=== PATIENT | female | born 1990 | race Caucasian/White ===

== ENCOUNTER 2018-05-30 16:30 | Emergency (ER) | payer MEDICAID, SELFPAY ==
[2018-05-30 16:31] VITALS: BP 116/64; PULSE 92; RESP 16; TEMP 36.3; O2SAT 97; BMI 20.9
--- NOTE | 2018-05-30 16:41 | ED.VISSUMM ---
- ER Visit Summary Date of Service: 05/30/18 Chief Complaint: Worsening dental pain History of Present Illness: The patient is a 27 F who presents with left lower tooth pain. Pain is worse with hot or cold liquids. She denies fever, chills night sweats. She denies difficulty opening or closing her mouth completely. She denies change in voice, difficulty swallowing or breathing. There is no history rheumatic fever, murmur, SBE, IV drug use or being immune suppressed. She reports allergy to penicillin. Physical Examination: Vital signs noted. She is afebrile. The left lower second molar has a large defect. There is soft tissue swelling buccal side of the tooth. There is no fluctuance. There is shotty submandibular lymphadenopathy with no anterior cervical lymphadenopathy. Trach is midline. There is no stridor. There is no dysphonia or dysphasia. Heart is regular without murmur, gallop or rub. S1 and S2 are normal. Lungs are clear to auscultation with good movement of air bilaterally. There is no evidence of facial cellulitis. Test Results: None Emergency Department Course and Treatment: Patient received first dose of Naprosyn, Monon and clindamycin in the department and was given a prescription for all 3. Treatment Plan: Oral analgesia and antibiotics and follow-up with dentist at [facility] Disposition: Discharged home in stable condition with significant other Impression: Dental abscess left lower molar This note was generated with [employer] dictation software. It may contain incorrect words, spelling, and punctuation that were not noted in review of the chart prior to signing ED Disposition - Plan for ED Patient: Disposition: Home or Assisted Living Chief Complaint: Dental Instructions: Dental Abscess Prescriptions: Hydrocodone Bitart/Apap 5-325 [Monon 5MG-325MG] 1 tablet PO Q6H PRN PRN 3 Days #10 tablet PRN Reason: Pain Naproxen [Naprosyn] 500 mg PO BID #14 tablet Clindamycin HCl [Cleocin] 300 mg PO Q6H #28 capsule Referrals: Arabella Marin MD [Primary Care Provider] - Additional Instructions: Your prescription was electronically sent to [facility] pharmacy located on [facility].
[2018-05-30] MEDS: HYDROcodone Bitartrate/Apap 5/325 Tablet PO (16:42)
[2018-05-30] MEDS: Naproxen 250 MG Tablet 500 MG PO (16:42)
[2018-05-30] MEDS: Clindamycin HCl 150 MG Capsule 300 MG PO (16:42)
--- NOTE | 2018-05-30 16:46 | ED.DCSUM_ITS ---
- ER Visit Summary Date of Service: 05/30/18 Chief Complaint: Worsening dental pain History of Present Illness: The patient is a 27 F who presents with left lower tooth pain. Pain is worse with hot or cold liquids. She denies fever, chills night sweats. She denies difficulty opening or closing her mouth completely. She denies change in voice, difficulty swallowing or breathing. There is no history rheumatic fever, murmur, SBE, IV drug use or being immune suppressed. She reports allergy to penicillin. Physical Examination: Vital signs noted. She is afebrile. The left lower second molar has a large defect. There is soft tissue swelling buccal side of the tooth. There is no fluctuance. There is shotty submandibular lymphadenopathy with no anterior cervical lymphadenopathy. Trach is midline. There is no stridor. There is no dysphonia or dysphasia. Heart is regular without murmur, gallop or rub. S1 and S2 are normal. Lungs are clear to auscultation with good movement of air bilaterally. There is no evidence of facial cellulitis. Test Results: None Emergency Department Course and Treatment: Patient received first dose of Naprosyn, Monroe and clindamycin in the department and was given a prescription for all 3. Treatment Plan: Oral analgesia and antibiotics and follow-up with dentist at [facility] Disposition: Discharged home in stable condition with significant other Impression: Dental abscess left lower molar This note was generated with [employer] dictation software. It may contain incorrect words, spelling, and punctuation that were not noted in review of the chart prior to signing ED Disposition - Plan for ED Patient: Disposition: Home or Assisted Living Chief Complaint: Dental Instructions: Dental Abscess Prescriptions: Hydrocodone Bitart/Apap 5-325 [Monroe 5MG-325MG] 1 tablet PO Q6H PRN PRN 3 Days #10 tablet PRN Reason: Pain Naproxen [Naprosyn] 500 mg PO BID #14 tablet Clindamycin HCl [Cleocin] 300 mg PO Q6H #28 capsule Referrals: Arabella Marin MD [Primary Care Provider] - Additional Instructions: Your prescription was electronically sent to [facility] pharmacy located on [facility].
== END 2018-05-30 16:51 | disposition home or self-care (01) ==
PROVIDERS: Emergency Provider Emergency Medicine; Family Provider Internal Medicine; PCP Internal Medicine
DX: K04.7 Periapical abscess without sinus (principal); K02.9 Dental caries, unspecified; Z72.0 Tobacco use
CPT/HCPCS: 99283

== ENCOUNTER 2018-08-17 20:12 | Emergency (ER) | payer MEDICAID, SELFPAY ==
[2018-08-17 20:12] VITALS: BP 103/60; PULSE 70; RESP 16; TEMP 36.2; O2SAT 100; BMI 21.7
--- NOTE | 2018-08-17 20:56 | RAD_ITS ---
STUDY: X-RAY - UNILATERAL RIBS ( RIGHT ) WITH CHEST REASON FOR EXAM: Female, 27 years old. Rib pain. TECHNIQUE - RIBS: 4 view(s) of the ribs. TECHNIQUE - CHEST: PA COMPARISON: March 19, 2017 FINDINGS - RIBS: Normal visualized ribs without a demonstrated fracture. FINDINGS - CHEST: The lungs are clear and expanded. There is no demonstrated pleural abnormality. Normal size heart. Normal mediastinum and mariel. Normal visualized pulmonary arteries. Normal visualized aortic arch and descending thoracic aorta. Normal visualized thoracic spine. Normal visualized ribs, clavicles, and shoulders. There is no demonstrated abnormality of the visualized soft tissue structures of the upper abdomen. RAD/Ribs Uni Min 3V w/PA Chest IMPRESSION: RIBS: Normal x-ray examination of the ribs. CHEST: Normal x-ray examination of the chest. Electronically Signed: Shyann Green MD at 22:07 EDT Tel , Service support ,
--- NOTE | 2018-08-17 21:02 | ED.DCSUM_ITS ---
- ER Visit Summary Date of Service: 08/17/18 Chief Complaint: Right side pain History of Present Illness: The patient is a 27 F presenting with right side pain. Patient states this started Friday. She has pain right lower ribs and right upper quadrant. She has taken ibuprofen at home with no relief. She denies injury. Denies nausea, vomiting, diarrhea. She has a mild cough. Denies shortness of breath. Denies fever. She also complains of left lower tooth pain and is awaiting her dental appointment. Denies other complaints. Physical Examination: Vitals are stable. Patient is afebrile. Alert no acute distress. HEENT exam left lower molar decay with no surrounding fluctuance.. Neck is supple. Lungs are clear and equal bilaterally. Heart is regular rate and rhythm. Abdomen is soft right upper quadrant tenderness with no rebound or guarding Extremities are unremarkable. Skin is warm and dry. No focal neurologic deficit. Remainder of exam is unremarkable. Emergency Department Course and Treatment: CBC, chemistries are unremarkable. Liver lipase are normal. D-dimer negative. HCG negative. Right rib series shows no acute process. On reevaluation, patient is resting comfortably. She is given prescriptions for Bentyl and clindamycin. She is advised to follow-up with her primary care physician and her dentist. She is advised to return to ED for worsening complaints. Disposition: Discharge home Impression: Abdominal pain, odontalgia This note was generated with [employer] dictation software. It may contain incorrect words, spelling, and punctuation that were not noted in review of the chart prior to signing ED Disposition - Plan for ED Patient: Instructions: ED Abdominal Pain Unkn Cause, ED Tooth Pain Prescriptions: Dicyclomine HCl [Bentyl] 20 mg PO TIDAC #20 capsule Clindamycin [Cleocin] 300 mg PO 4X/DAY #80 capsule Referrals: Arabella Marin MD [Primary Care Provider] -
[2018-08-17 21:51] LABS: Absolute Lymphocyte Count 2.29 X10^3/ul (0.83-4.51); Absolute Neutrophil Count 3.7 X10^3/uL (2.0-7.7); Basophil# 0.04 X10^3/uL; Basophil% 0.6 % (0-1); Eosinophil# 0.21 X10^3/uL; Eosinophils% 2.9 % (0-5); Hemoglobin 14.3 g/dl (12.0-15.0); Lymphocyte # 2.29 X10^3/ul (4.0); Mean Corp Hgb Conc 33.3 g/gl (32-36); Mean Corpuscular Hgb 31.1 pg (27.0-32.0); Mean Corpuscular Volume 93.5 fL (81-99); Mean Platelet Vol. 10.2 fl (6.2-12.0); Monocyte% 12.6 % (0-10); Neutrophil % 51.8 % (47-70); Platelet Count 253 K/mm3 (150-450); RBC Distribution Width CV 13.8 % (11.6-14.6); RBC Distribution Width SD 46.8 fl (35.1-43.9); White Blood Count 7.2 K/mm3 (4.4-11.0)
[2018-08-17 22:00] LABS: AST(SGOT) 12 U/L (15-37); Alanine Aminotransfer ALT/SGPT 16 U/L (13-56); Albumin, Serum 3.8 g/dL (3.2-5.0); Alkaline Phosphatase 68 U/L (45-117); Anion Gap 3 (5-15); BUN 16 mg/dL (7-18); BUN/Creat Ratio 19.4 RATIO (10-20); Bilirubin, Direct 0.16 mg/dL (0.00-0.30); Calcium,Total 8.7 mg/dL (8.5-10.1); Chloride 106 mmol/L (98-107); Creatinine, Serum 0.83 mg/dL (0.55-1.02); EST Glomerular Filtration Rate 88 mL/min (>60); Est Glom Filt Rate - Afr Amer 107 mL/min (>60); Estimated Creatinine Clearance 77.51 ml/min; Globulin 3.1 g/dL (2.2-4.2); Glucose 94 mg/dL (74-106); Lipase 115 U/L (73-393); Potassium 3.9 mmol/L (3.5-5.1); Protein, Total 6.9 g/dL (6.4-8.2); Sodium Level 138 mmol/L (136-145)
[2018-08-17 22:01] LABS: POSITIVE COUNT NO; POSITIVE DIFFERENTIAL NO; POSITIVE MORPHOLOGY NO
[2018-08-17 22:05] LABS: D-Dimer Quantitative (DVT/PE) < 0.27 FEU/ug/m (0.27-0.49)
[2018-08-17 22:06] LABS: Pregnancy, Serum, hCG Quali. NEGATIVE Negative (0-9 Nonpreg)
--- NOTE | 2018-08-17 22:57 | ED.DEP ---
ED Disposition - Plan for ED Patient: Instructions: ED Abdominal Pain Unkn Cause, ED Tooth Pain Prescriptions: Dicyclomine HCl [Bentyl] 20 mg PO TIDAC #20 capsule Clindamycin [Cleocin] 300 mg PO 4X/DAY #80 capsule Referrals: Arabella Marin MD [Primary Care Provider] -
[2018-08-17 23:18] VITALS: BP 105/81; PULSE 76; RESP 14; O2SAT 99
== END 2018-08-17 23:19 | disposition home or self-care (01) ==
PROVIDERS: Emergency Provider Emergency Medicine; Family Provider Internal Medicine; PCP Internal Medicine
DX: R10.11 Right upper quadrant pain (principal); K08.89 Other specified disorders of teeth and supporting structures; K02.9 Dental caries, unspecified; R05 Cough; Z72.0 Tobacco use
CPT/HCPCS: 71101; 80048; 80076; 83690; 84703; 85025; 85379; 99283; A4216

== ENCOUNTER 2018-10-30 20:46 | Emergency (ER) | payer MEDICAID, SELFPAY ==
[2018-10-30 20:47] VITALS: BP 112/66; PULSE 116; RESP 18; TEMP 39.6; O2SAT 97; BMI 20.5
[2018-10-30 20:56] VITALS: RESP 16
[2018-10-30] MEDS: Ceftriaxone 1 GM/50 ML BAG IV (21:13)
[2018-10-30] MEDS: Acetaminophen 325 MG Tablet 650 MG PO (21:13)
--- NOTE | 2018-10-30 21:20 | ED.DCSUM_ITS ---
History of Present Illness Chief Complaint: Flank Pain Detail of Chief Complaint: Fever, chills and right flank pain Informant: Patient Onset: Today - Onset this afternoon Context: Sudden Onset Timing: Continuous Quality: Pain Location: Right flank Current Severity: Moderate Maximum Severity: Severe Worsened by: Movement and palpation Relieved by: Nothing Associated Symptoms: Fever, nausea Narrative: Patient is a 27-year-old female who presents with right flank pain that started abruptly associated with fever and chills. She denies dysuria, frequency but does report dark-colored urine. She denies abnormal vaginal bleeding. She denies symptoms of . She denies respiratory symptoms. There is no history of trauma. - Past Medical History (1) Polyhydramnios affecting in third trimester Status: Acute Past Medical History - Allergies and Home Meds Allergies/Adverse Reactions: Allergies Penicillins Allergy (Verified 10/30/18 20:56) Hives Sulfa (Sulfonamide Antibiotics) Allergy (Verified 10/30/18 20:56) Hives Primary Care Physician: Arabella Marin MD [Primary Care Provider] - Prior records reviewed: No Surgical History: no surgical history Lives: Spouse/ Significant Other, With Family Smoking Status: Current every day smoker Alcohol: Rare Review of Systems General: Reports: Chills, Fever, Subjective, Sweats Eyes: Denies: Visual changes - bilaterally, Blurred Vision - bilaterally, Diplopia ENT: Denies: Rhinorrhea, Sore throat Cardiovascular: Denies: Chest pain, Palpitations Respiratory: Denies: Dyspnea, Cough, Dyspnea on exertion Gastrointestinal: Reports: Nausea. Denies: Abdominal pain, Vomiting, Diarrhea, Constipation, Melena, Hematochezia, -, - Genitourinary: Reports: Hematuria. Denies: Dysuria, Frequency Musculoskeletal: Reports: Back pain - Right flank. Denies: Myalgias, Arthralgias, Neck pain, Swelling, Extremity Pain, -, - Skin: Denies: Rash, Wounds Neurological: Reports: Headache. Denies: Weakness, Parasthesia, Numbness Endocrine: Denies: Polyuria, Polydipsia, Heat intolerance Hematologic: Denies: Easy bruising, Easy bleeding Physical Exam Vital Signs/Narrative: Vital Signs Temp Pulse Resp BP Pulse Ox 10/30/18 20:56 16 10/30/18 20:47 103.2 F H 116 H 18 112/66 97 Inital Vital Signs reviewed: Yes General: Well nourished, Well developed, No Acute Distress - She does appear ill but not toxic Head: Normocephalic, Atraumatic Eyes: Perrl, EOMI. Negative for: Pale conjunctiva, Scleral icterus ENT: Moist mucous membranes, No rhinorrhea Neck: Supple, Nontender Cardiovascular: Regular rhythm, No murmurs, Normal S1, Normal S2, Tachycardia Respiratory: No distress, CTA bilaterally, Chest nontender Abdomen: Soft, Nontender, Nondistended, Normal bowel sounds Back: Nontender, Normal Inspection, CVA tenderness - Right side. Negative for: Spinal tenderness Extremities: Nontender, No edema Skin: Normal color, No rash Neurological: Alert, Oriented x3, Cranial nerves II-XII grossly intact, Normal Strength, Normal Sensation Psychological: Normal affect, Normal Mood Diagnostic/Tx/Re-eval Laboratory Results 10/30/18 10/30/18 10/30/18 21:07 21:07 21:07 WBC 13.1 H RBC 4.58 Hgb 14.0 Hct 41.3 MCV 90.2 MCH 30.6 MCHC 33.9 RDW 12.8 RDW Differential 41.8 Plt Count 251 MPV 9.6 Immature Gran % (Auto) 0.200 Neut % (Auto) 75.3 H Lymph % (Auto) 14.7 L [place] % (Auto) 9.6 Eos % (Auto) 0.1 Baso % (Auto) 0.1 Absolute Neuts (auto) 9.9 H Absolute Lymphs (auto) 1.92 Total Counted Not Reportable Sodium 136 Potassium 3.6 Chloride 103 Carbon Dioxide 25.0 Anion Gap 8 BUN 11 Creatinine 0.92 Estim Creat Clear Calc 69.92 Est GFR (MDRD) Af Amer 95 Est GFR (MDRD) Non-Af 78 BUN/Creatinine Ratio 12.0 Glucose 92 Calcium 8.9 Serum , Qual NEGATIVE I was informed patient requested to leave. She was informed risk benefits of leaving. She was informed the importance of a urinalysis and to send culture. She is willing to stay. Time of this addendum 4855 - Medical Decision Making Story and physical exam are consistent with acute pyelonephritis. Will obtain UA. This may represent obstructing ureteral stone with infection. Doubt respiratory or GI etiology. CBC, BMP and test were obtained. BMP was obtained to assess renal function. Patient received Tylenol for headache. She is requesting ibuprofen for her fever. Patient did give urine specimen. Will discharge with prescription for ciprofloxacin. She reports allergy to penicillin and sulfa. Patient did pass p.o. challenge. 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
[2018-10-30 21:21] LABS: Absolute Lymphocyte Count 1.92 X10^3/ul (0.83-4.51); Absolute Neutrophil Count 9.9 X10^3/uL (2.0-7.7); Basophil# 0.01 X10^3/uL; Basophil% 0.1 % (0-1); Eosinophil# 0.01 X10^3/uL; Eosinophils% 0.1 % (0-5); Hematocrit 41.3 % (37-47); Lymphocyte # 1.92 X10^3/ul (4.0); Lymphocyte % 14.7 % (19-41); Mean Corp Hgb Conc 33.9 g/gl (32-36); Mean Corpuscular Hgb 30.6 pg (27.0-32.0); Mean Corpuscular Volume 90.2 fL (81-99); Mean Platelet Vol. 9.6 fl (6.2-12.0); Monocyte# 1.26 X10^3/uL; Monocyte% 9.6 % (0-10); Neutrophil # 9.85 X10^3/uL (2.7-7.7); Neutrophil % 75.3 % (47-70); Platelet Count 251 K/mm3 (150-450); RBC Distribution Width CV 12.8 % (11.6-14.6); RBC Distribution Width SD 41.8 fl (35.1-43.9); Red Blood Count 4.58 M/mm3 (4.2-5.4); White Blood Count 13.1 K/mm3 (4.4-11.0)
[2018-10-30 21:22] LABS: POSITIVE COUNT NO; POSITIVE DIFFERENTIAL NO; POSITIVE MORPHOLOGY NO
[2018-10-30 21:24] LABS: Internal QC Validated? YES +Cl - CLEAR BKGD
[2018-10-30 21:25] LABS: Pregnancy, Serum, hCG Quali. NEGATIVE Negative
[2018-10-30 21:29] LABS: Anion Gap 8 (5-15); BUN 11 mg/dL (7-18); Calcium,Total 8.9 mg/dL (8.5-10.1); Chloride 103 mmol/L (98-107); Creatinine, Serum 0.92 mg/dL (0.55-1.02); EST Glomerular Filtration Rate 78 mL/min (>60); Est Glom Filt Rate - Afr Amer 95 mL/min (>60); Estimated Creatinine Clearance 69.92 ml/min; Glucose 92 mg/dL (74-106); Potassium 3.6 mmol/L (3.5-5.1); Sodium Level 136 mmol/L (136-145)
[2018-10-30 22:03] VITALS: TEMP 38.7
[2018-10-30 22:27] LABS: Mucous, Urine 0 SEEN /hpf (<or=2+); Red Blood Cells-Urine 0 SEEN /hpf (0-5)
--- NOTE | 2018-10-30 22:28 | ED.RN ---
1000 ML SALINE BOLUS GIVEN AT 2224, UNABLE TO DOCUMENT ON JUL.
[2018-10-30 22:29] LABS: Color, Urine Yellow (Yellow); Glucose, Dipstick Normal (Normal); Ketone-Dipstick 15 mg/dl (Negative); Leukocyte Esterase-Dipstick 100 /ul (Negative); Nitrite-Dipstick Positive (Negative); Occult Blood-Urine 150 /ul (Negative); Protein-Dipstick 30 mg/dl (Negative); Urine Bilirubin Dipstick Negative (Negative); Urine Clarity Sl. Cloudy (Clear); Urine Urobilinogen Normal (Normal)
[2018-10-30] MEDS: Ibuprofen 600 MG Tablet PO (22:33)
[2018-10-30 22:36] VITALS: BP 100/66; PULSE 95; RESP 16; TEMP 36.1
[2018-10-30 22:39] LABS: Bacteria RARE /hpf (None Seen); Squamous Epithelial Cells - UA 0-5 SEEN /hpf (5-10); White Blood Cells 25-50 SEEN /hpf (0-5)
== END 2018-10-30 23:05 | disposition home or self-care (01) ==
PROVIDERS: Emergency Provider Emergency Medicine; Family Provider Internal Medicine; PCP Internal Medicine
DX: A41.9 Sepsis, unspecified organism (principal); N10 Acute pyelonephritis; Z88.0 Allergy status to penicillin; Z88.2 Allergy status to sulfonamides; F17.200 Nicotine dependence, unspecified, uncomplicated
CPT/HCPCS: 80048; 81001; 84703; 85025; 87077; 87086; 87088; 87186; 96365; 96366; 99284; J7030; J7050; A4216

== ENCOUNTER 2019-05-02 11:12 | Emergency (ER) | payer SELFPAY ==
[2019-05-02 11:13] VITALS: BP 104/56; PULSE 92; RESP 17; TEMP 36.7; O2SAT 99; BMI 21.8
--- NOTE | 2019-05-02 11:31 | ED.DCSUM_ITS ---
History of Present Illness Chief Complaint: Cold Sx Informant: Patient Onset: Days - 3 days Context: Gradual Onset Current Severity: Moderate Maximum Severity: Moderate Narrative: Patient presents with URI symptoms for the past 3 days. She has cough with head and chest congestion. She reports having a fever yesterday but did not measure it. She is coughing up green sputum and having wheezing. She is a smoker and reports a history of asthma. She is also 12 weeks . She has had no abdominal cramping or vaginal bleeding. - Past Medical History (1) Asthma Status: Chronic Past Medical History - Allergies and Home Meds Allergies/Adverse Reactions: Allergies Penicillins Allergy (Verified 05/02/19 11:13) Hives Sulfa (Sulfonamide Antibiotics) Allergy (Verified 05/02/19 11:13) Hives Primary Care Physician: Arabella Marin MD [Primary Care Provider] - Doctors: Dr. Ansari Prior records reviewed: Yes Surgical History: no surgical history Lives: With Family Smoking Status: Current every day smoker Review of Systems General: Reports: Fever, Subjective Eyes: Denies: Visual changes - bilaterally ENT: Reports: Sore throat, - - Head congestion Cardiovascular: Denies: Chest pain Respiratory: Reports: Cough, Sputum, - - Wheezing. Denies: Dyspnea Gastrointestinal: Denies: Vomiting, Diarrhea Genitourinary: Denies: Dysuria Musculoskeletal: Denies: Back pain, Extremity Pain Skin: Denies: Rash Neurological: Denies: Headache Hematologic: Denies: Easy bruising Allergy: Denies: Uticaria Physical Exam Vital Signs/Narrative: Vital Signs Temp Pulse Resp BP Pulse Ox 05/02/19 11:13 98.1 F 92 17 104/56 L 99 Inital Vital Signs reviewed: Yes General: Well nourished, Well developed Head: Normocephalic ENT: Moist mucous membranes, TM's clear, - - Posterior pharyngeal drainage. Uvula midline and normal in size. Neck: Supple Cardiovascular: Regular rate, Regular rhythm Respiratory: No distress, - - Slight decreased air movement with scant expi ratory wheezes. Abdomen: Soft, Nontender Extremities: Nontender Skin: Normal color Neurological: Alert, Oriented x3 Psychological: Normal affect Diagnostic/Tx/Re-eval - Medical Decision Making Patient has reported fever with green sputum production, wheezing, and history of asthma. She will be covered with a course of Zithromax, first dose given here. She will also be given albuterol inhaler. ED Disposition - Plan for ED Patient: Disposition: Home or Assisted Living Diagnosis: Bronchitis Instructions: BRONCHITIS, Antiobiotic Treatment (Adult) Prescriptions: Azithromycin [Zithromax] 250 mg PO DAILY #4 tablet Referrals: Arabella Marin MD [Primary Care Provider] - 1 Week if not improving
[2019-05-02] MEDS: Azithromycin 250 MG Tablet 500 MG PO (11:35)
[2019-05-02 11:54] VITALS: RESP 18
== END 2019-05-02 11:50 | disposition home or self-care (01) ==
PROVIDERS: Emergency Provider Emergency Medicine; Family Provider Internal Medicine; PCP Internal Medicine
DX: O99.511 Diseases of the respiratory system complicating pregnancy, first trimester (principal); J45.909 Unspecified asthma, uncomplicated; O99.331 Smoking (tobacco) complicating pregnancy, first trimester; Z3A.12 12 weeks gestation of pregnancy; Z88.0 Allergy status to penicillin; Z88.2 Allergy status to sulfonamides
CPT/HCPCS: 99283

== ENCOUNTER → 2019-10-29 | Outpatient (CLI) | payer MEDICAID, SELFPAY ==
--- OUTSIDE RECORDS SUMMARY | 2020-03-14 19:21 | XMS RPT_ITS | CCD ---
:1990 External Reference #:[id number] Author Organization [facility] Care Team Providers Name Role Phone OMLEY, DO Unavailable Unavailable OMLEY, DO Unavailable Unavailable OMLEY, DO Unavailable Unavailable MD RADHA Unavailable Unavailable MD RADHA Unavailable Unavailable PROVIDER Unavailable Unavailable Keenan SCHAFER Unavailable Unavailable Keenan SCHAFER Unavailable Unavailable JOJO CAMPBELL Unavailable Unavailable Heber Garcia Primary Care Provider Allergies Reported Allergen Reaction(s) Severity Date of Onset Location House dust mite 03-02-2007 - [facility] inic Other Translations: [ DUST Counce Repository MITES] Penicillins Translations: 03-04-2005 - [facility] Other [ PENICILLINS] Counce Reposi tory Sulfonamides (Antibiotic) Hives 04-10-2017 - [facility] Other Translations: [ SULFA Counce Repository (SULFONAMIDE ANTIBIOTICS)] Medications Medication Name Sig Date Prescriber Location Albuterol albuterol HFA 05-07-2018 Wendy ([facility]) [facility] ic (PROVENTIL HFA, Ace ([id number]) VENTOLIN HFA) 90 mcg/actuation inhaler Indications: Wheezing Inhale 2 Puffs as instructed every 4 hours as needed. 1 Inhaler 0 05/07/2018 Active Comment: Inhale 2 Puffs as instructed every 4 hours as needed. Ibuprofen ibuprofen (MOTRIN) 600 11-08-2019 Kinza Peralta [facility] mg tablet Take 1 tablet ([id number]) by mouth every 6 hours as needed for Pain. FOR PAIN. 30 tablet 0 11/08/2019 Active Comment: Take 1 tablet by mouth every 6 hours as needed for Pain. FOR PAIN. methylPREDNISolone methylPREDNISolone 02-10-2020 Boone Martin ([facility]) [facility] garnett (MEDROL, DEBRA,) 4 mg 03-07-2020 [facility] ( [id number]) Dose-Pack As Instructed per package 1 Package 0 02/10/2020 03/07/2020 Discontinued methylPREDNISolone (MEDROL, 02-10-2020 Veronica ([facility]) [facility] DEBRA,) 4 mg Dose-Pack As [place] ([id number]) Instructed per package 1 Package 0 02/10/2020 Active methylPREDNISolone (MEDROL, 12-17-2019 - Veronica ([facility]) [facility] DEBRA,) 4 mg Dose-Pack As 02-10-2020 [place] ([id number]) Instructed per package 1 Package 0 12/17/2019 02/10/2020 Discontinued Comment: As Instructed per package predniSONE predniSONE (DELTASONE) 03-07-2020 Emma ([facility]) [facility] 10 mg tablet Emma ([facility]) [place] ([id number]) Indications: Atopic dermatitis and related condition Take 4 tabs daily x 3 days, then 3 tabs x 3 days, 2 tabs x 3 days, then 1 tab x3 days with food. 30 tablet 0 03/07/2020 Active Comment: Take 4 tabs daily x 3 days, then 3 tabs x 3 days, 2 tabs x 3 days, then 1 tab x3 days with food. Triamcinolone triamcinolone 08-06-2019 - Emma ([facility]) [facility] [place] [facility] alexandr acetonide (KENALOG) 03-07-2021 Sosa ([id number]) 0.1 % cream Indications: Atopic dermatitis and related condition Apply 1 application to affected area three times daily. Apply sparingly to area for rash/itching. 80 g 5 03/07/2020 03/07/2021 Active Comment: Apply 1 application to affec joshua area three times daily. Apply sparingly to area for rash/itching. venlafaxine venlafaxine ER (EFFEXOR 12-17-2019 Veronica ([facility]) [facility] XR) 75 mg 24 hr capsule (441 [id number]) Take 1 capsule by mouth once daily. 30 capsule 2 12/17/2019 Active Comment: Take 1 capsule by mouth once daily. Problems Active Problems Category Problem Name Status Date Location Allergic reactions Atopic dermatitis Active 02-19-2007 - [facility] ([id number]) Anxiety disorders Mixed anxiety and Active 08-30-2016 - [facility] depressive disorder (68824) Asthma Allergic asthma Active 02-19-2007 - [facility] inic ([id number]) Other upper respiratory Allergic rhinitis Active 02-19-2007 - [facility] disease (83739) Past or Other Problems Category Problem Name Status Date Location Gastrointestinal Hemorrhage of anus Completed 07-31-2017 - [facility] hemorrhage and rectum (21015) Hemorrhoids Unspecified Completed 07-14-2017 - [facility] hemorrhoids (53070) Screening and history of H/O: depression Completed 03-11-2019 - [facility] mental health and (54193) substance abuse codes Results Result Name Value Range Unit Interpretation Flag Date Location progress on 2020-03 PROGRESS HNO ID: [id number] Normal 03-07-2020 [facility] Author: Emma (Marine Structural [employer]der) Ian Crabtree ([id number]) Service: ? Author Type: Nurse Specialist Type: Progress Notes Filed: 03/07/2020 10:11 AM Note Text: DISTANCE HEALTH VISIT This Team Access Model visit is a virtual encounter. It requ ired patient-provider interaction for the medical decision making as documented below. Russell Liz is a 29 year old female seen for follow up of eczema. Treatments: Supervisor Lead Refinery: Russell Liz is a 29 year old female who presents wit h complaint of rash for about 2 weeks. Notes she has been tanning recently. Not spreading. consistent with previous eczema flares. She notes eczema rash on buttocks, legs, back, head. Has been tanning. 2 weeks. Steroid cream not available, ran out. Prednisone does help,last doing less helpful. HISTORY REVIEWED (electronic chart updated): - medical history - medications - allergies REVIEW OF SYSTEMS: GENERAL: no recent change in weight, no fever, activity leve l is normal RESPIRATORY: no cough, no wheezing or shortness of breath SKIN: as noted in HPI PHYSICAL EXAMINATION: VIDEO EXAM: (if done, performed via video enabled technology ) GENERAL: alert and appropriate, in no distress, well-hydrate d, well nourished and happy, smiling, interactive SKIN: rash noted: presnt onlegs, back, buttocks RESPIRATORY: breathing non-labored and no grunting/flaring/r etractions CHEST: equal chest rise with normal respiratory effort NEUROLOGIC: no obvious deficit ASSESSMENT: (L20.9) Atopic dermatitis and related condition PLAN: ASSESSMENT/PLAN: 1. Atopic dermatitis and related condition - ICD9: 691.8, IC D10: L20.9 - Begin treatment with topical steriods for up to 2 weeks - Dry skin care instructions reviewed - Use mild soap like Dove, Aveeno or Cetaphil - limit shower/bath to less than 15 minutes with warm, not h ot, water - BID use of recommended emollients such as Cetaphil, Euceri n Plus, Aveeno, Aquaphor - Follow up if symptoms persist or worsen. - Referral to Dermatology for further management if needed, [facility] - TRIAMCINOLONE ACETONIDE 0.1 % TOPICAL CREAM - PREDNISONE 10 MG TABLET - CONSULT TO DERMATOLOGY 15 min spent in visit There are no Patient Instructions on file for this visit. Emma Sosa APRN.CNS obsolete on 2020-02 OBSOLETE Refill (OBGYWM) Normal 02-09-2020 Hal [facility] RUSSELL LIZ ([id number]) 1990 [facility] Date Time Provider Department ([id number]) 02/09/20 JESSICA KU (MARISELA) OBGYWM During your visit today, we recorded the following informati on about you: Karen Hawthorne RN 02/09/2020 10:41 AM Signed Patient was prescribed Medrol dose pack by at her PP visit in November for her eczema. Calling to request another RX. The eczema is all ove r her arms, shoulders, and legs. Aware t hat RM is out of the office. Would like provider ignition mechanic to review in her absence. If DOC not able to send in for her, she would like to wait for 's response tomorrow. Karen Ku APRN.CNM 02/09/2020 2:22 PM Signed Would recommend appointment with primary care for treatment or to urgent care. VAN Madrigal RN 02/09/2020 3:26 PM Signed Left voicemail to let her [facility] provider ignition mechanic would not refill. Previous note states she waants to wait for RM response. Forwarded to . Esperanza Rodriguez APRN.AYO 02/10/2020 7:23 AM Signed Please let the pt know that I did send in a medr ol pack for her, but she will need to see PCP for any further treatment for the eczema. Veronica Rodriguez APRN.AYO Hawthorne RN 02/10/2020 8:41 AM Signed Left message for patient to call office. Karen Celaya RN 02/10/2020 8:50 AM Signed Patient notified. Esperanza Celaya RN Allergies As of Date: 02/09/2020 Noted Allergy Reaction DUST MITES 03/02/2007 PENICILLINS 03/04/2005 Comments: rash, hives SULFA (SULFONAMIDE ANTIBIOTICS) 04/10/2017 4 - Hives Date Reviewed: 12/17/2019 Reviewed by: Veronica (Ayo) Jennifer - Fully Assessed Reason for Visit: Refill Request [94] Order(s):methylPREDNISolone (MEDROL, DEBRA,) 4 mg Dose-PackAs Instructed per packageDisp: 1 PackageRfl: 0 Prescriptions as of 02/09/2020 Sig: METHYLPREDNISOLONE 4 MG TABLE* As Instructed per package VENLAFAXINE ER 75 MG CAPSULE,* Take 1 capsule by mouth once * IBUPROFEN 600 MG TABLET Take 1 tablet by mouth every * TRIAMCINOLONE ACETONIDE 0.1 %* Apply 1 application to affect * ALBUTEROL SULFATE HFA 90 MCG/* Inhale 2 Puffs as instructed * Problem List As Of Date 02/09/2020 Noted Resolved OTHER ATOPIC DERMATITIS [L20.89] 02/19/2007 EXTRINSIC ASTHMA UNSPECIFIED [J45.909] 02/19/2007 ALLERGIC RHINITIS NOS [J30.9] 02/19/2007 Pain in joint, pelvic region and thigh [M25.559]09/01/2012 0 11/08/2019 History of delivery [Z98.891] 03/07/2016 02/13/2017 More... History of herpes genitalis [Z86.19] 03/07/2016 11/08/2019 More... Tobacco use in [O99.330] 03/07/2016 11/08/2019 More... History of asthma [Z87.09] 03/07/2016 11/08/2019 More... Social problem [Z65.9] 03/07/2016 11/08/2019 More... Pelvic pain in [O26.899, R10.2] 03/07/2016 017 More... Patient requested diagnostic testing [Z01.89] 03/07/2016 More... Trichomonal vaginitis during in first*03/19/2016 0 02/13/2017 More... Depression with anxiety [F41.8] 08/30/2016 Positive GBS test [B95.1] 10/10/2016 11/08/2019 Polyhydramnios in third trimester [O40.3XX0] 10/25/201601/31 38 weeks gestation of [Z3A.38] 10/25/2016 02/14/20 17 Hemorrhoids [K64.9] 07/14/2017 More... Rectal bleeding [K62.5] 07/30/2017 07/31/2017 Rectal bleeding [K62.5] 07/31/2017 Previous delivery affecting *03/11/2019 0 11/08/2019 More... History of depression [Z86.59] 03/11/2019 More... History of depression [Z87.59, Z86.5*03/11/2019 Nausea and vomiting in [O21.9] 03/11/2019 11/08/19 20 More... History of polyhydramnios [Z87.59] 03/11/2019 11/08/2019 More... Prescriptions ordered this encounter Disp Refills Start End METHYLPREDNISOLONE 4 MG TABLETS IN A* 1 Pa* 0 02/10/2020 Sig: As Instructed per package Medications Discontinued During This Encounter Prescriptions - methylPREDNISolone (MEDROL, DEBRA,) 4 mg Dose-Pack (Disconti nued) As Instructed per package Encounter Status:Closed by ESPERANZA CELYAA RN on 02/10/20 trich vaginalis ampl on 2019-12-17 T vag Amplification Negative for Trichomonas Sylvia l 12-17-2019 [facility] vaginalis by [place] ([id number]) amplification Comment: Performed By: #### TRVAMP ## ##[facility] [address] [place], [place] [phone] Trich vag Amp Source Cervix Normal 0 [facility] ([id number]) Comment: Performed By: #### TRVAMP ## ##[facility] [address] [place], [place] [phone] progress on 2019-12 PROGRESS HNO ID: [id number] Normal 12-17-2019 [facility] Author: Veronica Jacobs) Jenniferpaul Crabtree ([id number]) Service: ? Author Type: Nurse Practitioner Type: Progress Notes Filed: 12/17/2019 3:29 PM Note Text: SUBJECTIVE: 29 year old female presents for 6 week exam. Outcome: RCS. Date delivered: 11/01/19. Delivering M.D.: Gregory Wood MD Delivered in what hospital? [facility] Sex: male, Wt: 8 lbs 12 oz. Baby's Name: Dany. Feeding: Landon ttle feeding. Lochia: has ceased. Bladder: Normal. Bowels: Normal for geovanny ent, no c/o bowel problems. Last PAP: 03/24/19 If , do you have any drainage or redness at incisio n site? No Do you have a fever? No Sexual Activity: Resumed without difficulty. control P lans: tubal ligation. Additional Issues/problems/concerns: discuss change in effex or, pt feeling that her emotions all everywhere. Rosa Maria Mendoza LPN Details: None OBJECTIVE: Thyroid: normal to inspection and palpation Breast Exam: deferred. Abdomen: soft, non-tender, no masses, no hepatosplenomegaly and no lymphadenopathy Incision: Healed Perineum: perineum intact. Pelvic Exam: negative findings: external genitalia normal, n ormal Bartholin's glands, urethra, [place]'s glands, no vulvar lesio ns, no cervical lesions, normal discharge, well estrogenized, good vaginal support, vault clean with normal discharge, normal appearing perineal body and perianal region Bimanual Exam: no cervical motion tenderness/, uterus normal size, shape and consistency/ , no adnexal masses and non-tender ASSESSMENT: good candidate for tubal ligation. Use, risks , benefits and side effects discussed with lorraine gómez PLAN: Depression: Follow up in 4-6 weeks to assess resp onse to Effexor Prescription given per orders, RTC for annual exams and PRN I have reviewed and updated past medical and surgical histor y, medications and allergies. STD testing done per pt request. Veronica Rodriguez, KILN DRAWER.MANUFACTURER REPRESENTATIVE gc/chlamydia amplif on 2019-12-17 Chlamydia Amplif Negative for Chlamydia Normal 12-17-2019 [facility] trachomatis by [facility] ([id number]) amplification. Comment: Performed By: #### GCCT #### [address] [phone] GC Amplification Negative for Neisseria Normal 12-17-2019 [facility] gonorrhoeae by [facility] ([id number]) amplification. Comment: Performed By: #### GCCT #### [address] [phone] GC/Chlam Amp Source Cervix Normal 12-17-2019 [facility] ([id number]) Comment: Performed By: #### GCCT #### [address] [phone] progress on 2019-11 PROGRESS HNO ID: [id number] Normal 11-15-2019 [facility] Author: Jerica Wood [place] ([id number]) Service: ? Author Type: Physician Type: Progress Notes Filed: 11/15/2019 10:55 AM Note Text: EARLY VISIT Russell Liz is a 28 year old here for 2 week visit. Delivery Summary: ROS: General: Denies any fever or chills Hypertension Screening: ? Headache? No. Mood: depressed Depression: admits to symptoms of depression. (Lines 3 AND 4 applicable if either Lines 1 or 2 are positiv e) 1. Over the past 2 weeks have you felt down, depressed, or h opeless? Positive - Further Testing Indicated 2. Over the past two weeks, have you felt little interest or pleasure in doing things? 3. Have you had thoughts of harming yourself or others? Eleazar sinclair 4. [place] Depression Scale (EPDS) Total Score: 4 Feeding: Bottle feeding problems: None Bladder: No dysuria, gross hematuria, urinary frequency, uri nary urgency, or incontinence Bowel symptoms: some diarrhea at times Abdomen: She reports no incisional redness, tenderness, eryt lowell Bleeding: light flow , one day of heavier bleeding- slowed n ow Bottom and Perineum: No issues Sleep: no sleep concerns, does not feel rested [place] since delivery: Not resumed Emotional support: Yes Exercise: N/A Other issues: None PHYSICAL EXAMINATION: BP 112/64 Wt 118 lb (53.5 kg) LMP 02/01/2019 (Exact Date ) No BMI 21.93 kg/m? General: pleasant,female in no apparent distress, AANDO x 3. Skin warm and intact. Breast: Deferred Abdomen: soft, non-tender and no masses /Incision: No incisi onal redness, swelling, or drainage Pelvic: Deferred Bimanual: Deferred ASSESSMENT AND PLAN: 1. 28 year old status post CS with normal course. 2. Contraception plan: tubal ligation. Reinforced 6-week pel mario alberto rest. Encouraged condom usage should patient deviate. 3. Education: resources provided - see MA/RN note 4. PP DEPRESSION- seeing counselor 2 x week- next appt today . Was given rx for effexor- didn't start. Does not feel connected to baby. Does have SI or HI. Follow up: Return to Clinic for 6 week visit and as needed Jerica Troy MD progress on 2019-11 PROGRESS HNO ID: [id number] Normal 11-08-2019 [facility] Author: Kinza Peralta Crabtree ([id number]) Service: ? Author Type: Physician Type: Progress Notes Filed: 11/08/2019 1:36 PM Note Text: EARLY VISIT Russell Liz is a 28 year old here for 1 week visit. c/o pain but out of oxycodone and only taking acetampinophen Delivery Summary: c-s and salpingectomy on 11/01/2019 ROS: General: Denies any fever or chills Hypertension Screening: ? Headache? No. ? Visual Changes? No ? Epigastric Pain? No ? Increased Swelling? No ? Taking any BP medications at home? No ? If applicable, monitoring BP at home? (If Yes, include res ults) No Mood: tired, overwhelmed at times Depression: denies, admits to symptoms of depress ion. (Lines 3 AND 4 applicable if either Lines 1 or 2 are positiv e) 1. Over the past 2 weeks have you felt down, depressed, or h opeless? 2. Over the past two weeks, have you felt little interest or pleasure in doing things? 3. Have you had thoughts of harming yourself or others? N/A 4. [place] Depression Scale (EPDS) Total Score: N/A Feeding: Bottle feeding problems: None Bladder: No dysuria, gross hematuria, urinary frequency, uri nary urgency, or incontinence Bowel symptoms: Negative for abdominal discomfort, blood in stools or black stools and change in bowel habits Abdomen: She reports no incisional redness, tenderness, eryt lowell Bleeding: light flow Bottom and Perineum: No issues Sleep: no sleep concerns, does not feel rested [place] since delivery: Not resumed Emotional support: Yes Exercise: N/A Other issues: None PHYSICAL EXAMINATION: LMP 02/01/2019 (Exact Date) General: pleasant,female in no apparent distress, AANDO x 3. Skin warm and intact. Breast: Deferred Abdomen: soft, non-tender and no masses /Incision: No incisi onal redness, swelling, or drainage Pelvic: Deferred Bimanual: Deferred ASSESSMENT AND PLAN: 1. 28 year old status post CS with normal course. 2. Contraception plan: tubal ligation. Reinforced 6-week pel mario alberto rest. Encouraged condom usage should patient deviate. 3. Education: resources provided - see MA/RN note 4. H/o depression, did well on effexor and desires to restar t. Also has started counseling some pain, not controlled, NSAIDs w/ tylenol and oxycodone o nly for breakthrough pain Follow up: 2 weeks Kinza Peralta MD progress on 2019-11 PROGRESS HNO ID: [id number] Normal 11-01-2019 [facility] Author: Rosa Maria Mendoza LPN ([id number]) Service: ? Author Type: ? Type: Progress Notes Filed: 11/01/2019 2:07 PM Note Text: Pt delivered via RC/S at [facility] on 11/01/[address] Wood and Dolores SCHREIBER. See OB Outcome note Rosa Maria Mendoza PRODUCTION CONTROL CLERK history physical on 2019-10-27 HISTORY PHYSICAL HNO ID: [id number] Normal 05- [facility] Author: Jerica Wood [place] ([id number]) Service: ? Author Type: Physician Type: HANDP Filed: 10/27/2019 11:11 AM Note Text: Pre-Op History and Physical HPI: The patient is a 28 year old female presenting for pre- operative visit. She is scheduled for and bilateral salpingectomy, for repeat elective cs and desires sterilization on 11/01/19. Procedure discussed along with risks, benefits an d complications. Other alternatives discussed for management. Consent form signed? Yes. PAST MEDICAL HISTORY Diagnosis Date - Abnormal Pap smear of cervix 12/2015 LGSIL pap - Allergic rhinitis, cause unspecified Allergic rhinitis - Anemia - Asthma - Depression with anxiety 08/30/2016 - Eczema - Family history of malignant hyperthermia MATERNAL GRANDMOTHER - fracture age 9 left arm , playground accident - Genital herpes - Headache(784.0) - PMH - PAST MEDICAL HISTORY OF normal color vision - Varicella without mention of complication age 11 months and age 3 years per mother PAST SURGICAL HISTORY Procedure Laterality Date - DELIVERY ONLY , low transverse - DELIVERY ONLY 10/29/2016 - HEMORRHOID SURGERY HX 07/30/2017 Fall - INSERTION OF IUD - REMOVE TONSILS/ADENOIDS,<12 Y/O Current Outpatient Medications Medication Sig Dispense Refill - acyclovir (ZOVIRAX) 400 mg tablet Take 1 tablet by mouth t hree times daily. 90 tablet 0 - triamcinolone acetonide (KENALOG) 0.1 % cream Apply 1 appl ication to affected area three times daily. Apply sparingly to area for rash/itching. 80 g 5 - albuterol HFA (PROVENTIL HFA, VENTOLIN HFA) 90 mcg/actuati on inhaler Inhale 2 Puffs as instructed every 4 hours as needed. 1 Inha ler 0 - Znqykkld-Xs-Ftb-Fe-FA ( VITAMIN) tab Take 1 tablet by mouth. No current facility-administered medications for this visit. ALLERGIES: Dust Mites; Penicillins; Sulfa (Sulfonamide Antib iotics) PERSONAL HISTORY: Social History Tobacco Use - Smoking status: Current Every Day Smoker Years: 9.00 Last attempt to quit: 10/29/2010 Years since quittin.0 - Smokeless tobacco: Never Used - Tobacco comment: 2 cigarettes daily Substance Use Topics - Alcohol use: Not Currently Comment: Occasionally - Drug use: Not Currently Types: Marijuana FAMILY HISTORY: FAMILY HISTORY Problem Relation Age of Onset - other (multiple sclerosis) Mother - No Known Problems Father - No Known Problems Sister - Depression Sister - Depression Sister - No Known Problems Brother - No Known Problems Brother - Hypertension Maternal Grandmother Severe - Malig Hyperthermia Maternal Grandmother - Colon Cancer Maternal Grandfather - No Known Problems Paternal Grandfather - No Known Problems Paternal Grandmother - other (PTSD) Son - Breast Cancer Maternal Aunt great aunt - Cancer Paternal Aunt skin cancer - other (chron's disease) Paternal Aunt Maternal Aunt - No Known Problems Son REVIEW OF SYMPTOMS: negative except as noted above PHYSICAL EXAMINATION: VITALS: Blood pressure 100/64, weight 138 lb (62.6 kg), last menstrual period 02/01/2019. GENERAL: The patient is well nourished, well hydrated in no acute distress. , The patient is oriented to time, place, and pers on. NECK: normal range of motion GENITALIA: exam deferred Abdomen: gravid, non tender FHR 125bpm IMPRESSION:PLAN: elective repeat cs at 39 weeks with bilater al salpingectomy Pt has been counseled on risks/benefits and alternatives of surgery including but not limited to anesthesia, bleeding, infection , injury to pelvic structures including bowel, bladder, ureters and vess els. Pt wishes to proceed with surgery at this time. Pt understands salpingectomy is permanent and risk of regret - would like to proceed. COVID 19 testing pre op ordered and explained to patient. I have reviewed and updated past medical and surgical histor y, medications and allergies Jerica Wood MD group b strep pcr o n 2019-10-13 GROUP B STREP PCR Negative for Group B Normal 0 10-13-2019 [facility] Streptococcus by PCR. Crabtree ([id number]) Comment: Performed By: #### GBPCR ### #[id number] [place], [place] [phone] progress on 2019-10 PROGRESS HNO ID: [id number] Normal 10-05-2019 [facility] Author: Kashmir Crabtree ([id number]) Service: ? Author Type: Physician Type: Progress Notes Filed: 10/05/2019 3:10 PM Note Text: MFM Note Patient here for growth ultrasound with history of polyhydra mnios in prior and 2 prior c-sections. The placenta is posterior fundal. The growth is normal along with normal AFV. Left renal pelvis in male fetus is 8 mm which would be considered normal for this gestational age. Findings communicated to the patient. Kashmir Landin MD cnco on 2019-09-21 CNCO Letter Text Normal 09-21-2019 [facility] ([id number]) cbc and differential on 2019-08-06 Abs Baso 0.03 <0.11 k/uL Normal 08-06-2019 [facility] ([id number]) Comment: Performed By: #### CBCDIF ## ##[address] [place], [place] [phone] Abs Patillas 0.53 <0.87 k/uL Normal 08-06-2019 [facility] ([id number]) Comment: Performed By: #### CBCDIF ## ##[address] [phone] Abs Neut 7.05 1.45-7.50 k/uL Normal 08-06-2019 [facility] ([id number]) Comment: Performed By: #### CBCDIF ## ##[address] [phone] Absolute nRBC <0.01 <0.01 Normal 08-06-2019 [facility] ([id number]) Comment: Performed By: #### CBCDIF ## ##[address] [phone]- [phone] Basophils/100 WBC (Bld) 0.3 % Normal 2019 [facility] ([id number]) Comment: Performed By: #### CBCDIF ## ##[place] [address] [address], [place] [phone] DTYPE Auto Diff Normal 08-06-2019 [facility] ([id number]) Comment: Performed By: #### CBCDIF ## ##[place] [address] [place] [phone] Eosinophils (Bld) [#/Vol] 0.12 <0.46 k/uL Normal [facility] (75184) Comment: Performed By: #### CBCDIF ## ##[place] [address] [phone] Eosinophils/100 WBC (Bld) 1.2 % Normal [facility] (68353) Comment: Performed By: #### CBCDIF ## ##[place] [address] [place] [phone] Erythrocyte distribution 12.7 11.5-15.0 % Normal 08-05 [facility] width (RBC) [Ratio] [place] (54761) Comment: Performed By: #### CBCDIF ## ##[place] [address] [phone] Hematocrit (Bld) [Volume 35.8 36.0-46.0 % Low 08-05 [facility] fraction] ([id number]) Comment: Performed By: #### CBCDIF ## ##[place] [address], [place] [phone] Hemoglobin (Bld) 11.5 11.5-15.5 g/dL Normal 08-06-2019 [facility] [Mass/Vol] [place] (29209) Comment: Performed By: #### CBCDIF ## ##[place] [address], [place] [phone]- [phone] Lymphocytes (Bld) [#/Vol] 2.35 1.00-4.00 k/uL Normal [facility] (93553) Comment: Performed By: #### CBCDIF ## ##[place] [address], [place] [phone] Lymphocytes/100 WBC (Bld) 23.3 % Normal [facility] (79439) Comment: Performed By: #### CBCDIF ## ##[place] [address], [place] [phone] MCH (RBC) [Entitic mass] 29.9 26.0-34.0 pG Normal 08-05 [facility] (60239) Comment: Performed By: #### CBCDIF ## ##[place] [address], [place] [phone] MCHC (RBC) [Mass/Vol] 32.1 30.5-36.0 g/dL Normal 08-06-19 [facility] (03828) Comment: Performed By: #### CBCDIF ## ##[place] [address], [place] [phone] MCV (RBC) [Entitic vol] 93.2 80.0-100.0 fL Normal 08-05 [facility] (98114) Comment: Performed By: #### CBCDIF ## ##[place] [address], [place] [phone] Monocytes/100 WBC (Bld) 5.3 % Normal 2019 [facility] (24388) Comment: Performed By: #### CBCDIF ## ##[place] [address], [place] [phone] Neutrophils/100 WBC (Bld) 69.9 % Normal [facility] (59851) Comment: Performed By: #### CBCDIF ## ##[place] [address], [place] [phone]- [phone] NRBCs 0.0 0 /100 WBC Normal 08-06-2019 [facility] (10195) Comment: Performed By: #### CBCDIF ## ##[address] [phone] Platelet mean volume 10.4 9.0-12.7 fL Normal 0 [facility] (d) [Entitic vol] [place] (65417) Comment: Performed By: #### CBCDIF ## ##[address] [phone]- [phone] Platelets (Bld) [#/Vol] 279 150-400 k/uL Normal 2019 [facility] (96398) Comment: Result Comment: No clot dete cted. Performed By: #### CBCDIF ## ##[address] [phone] RBC (Bld) [#/Vol] 3.84 3.90-5.20 m/uL Low 08-06-2019 [facility] (69906) Comment: Performed By: #### CBCDIF ## ##[address] [place], [place] [phone] WBC (Bld) [#/Vol] 10.08 3.70-11.00 k/uL Normal 08-06-2019 [facility] (85236) Comment: Performed By: #### CBCDIF ## ##[address] [phone] 50g, 1hr gest. gscrn on 2019-08-06 Glucose [Mass/Vol] 97 74-134 mg/dL Normal 08-06-2019 [facility] (29757) Comment: Result Comment: [place] Con [place] of Obstetricians and Gynecologists (Lucy/Jonas) guidelin es state a gestational diabetes mellitus positive screen is made, in women not previously diagnosed with overt diabetes, when the 1 hr plas ma glucose level is equal to or above 140 mg/dL. The [facility] [place] recommends a 135 mg/dL cutoff. Performed By: #### GLTGST ## ##[address], [place] [phone]- [phone] progress on 2019-06 PROGRESS HNO ID: [id number] Normal 06-14-2019 [facility] Author: Jose Kern ([id number]) Service: ? Author Type: Physician Type: Progress Notes Filed: 06/14/2019 9:47 AM Note Text: Please see ultrasound report for details of this visit. Jose Kern M.D. urine culture on 21-06-02 Bacteria identified Cx Culture Result - Normal 06-04-2019 [facility] Nom (U) 10,000 - <50,000 [facility] (03471) CFU/ml Normal urogenital [place] Comment: Performed By: #### URCUL ### #[address] [phone] type and scr,prenatl on 2019-06-04 ABO/RH(D) O POSITIVE Normal 06-04-2019 [facility] ([id number]) Comment: Performed By: #### TSPN #### [address] [phone] syphilis ttl w/reflx on 2019-05-06 Syphilis Interp Cannot exclude recent Normal [facility] Treponemal infection if [place] (69006) specimen collected within 7 to 10 days after appearance of suspect lesions or 2 to 3 weeks after an exposure. Clinical correlation is required. Comment: Performed By: #### CBC, HAL GG, SYPHTX, HBSAG, HIV12C ####[place] [address] [place], [place] [phone] Syphilis Screen Non Reactive Non Reactive Normal 05-06-20 [facility] (28191) Comment: Performed By: #### CBC, HAL GG, SYPHTX, HBSAG, HIV12C ####[place] [address] [place], [place] [phone] rubella igg antibody on 2019-05-06 Rubella IgG Ab 1.83 Index Value Normal 05-06-2019 [facility] (74902) Comment: Result Comment: Index values are interpreted as follows: Negative specimens <0.90 Equivocol specimens 0.90 to 0.99 Positive specimens >0.99 The magnitude of the measure d result is not indicative of the amount of antibody present. Performed By: #### CBC, HAL GG, SYPHTX, HBSAG, HIV12C ####[facility] [place], [place] [phone] Rubella IgG Ab, Positive Negative Critically abnormal [facility] (71640) Comment: Result Comment: Sample is co nsidered positive for IgG antibodies to rubella virus. A positive result indicates previous exposure to Rubella virus or vaccination. Performed By: #### CBC, HAL GG, SYPHTX, HBSAG, HIV12C ####[facility] [place], [place] [phone] [id number] ag +hiv12 ab on 2019-05-06 HIV 12 Ag/Ab Non Reactive Non Reactive Normal 05-06-2019 [facility] ([id number]) Comment: Performed By: #### CBC, HAL GG, SYPHTX, HBSAG, HIV12C ####[facility] [place], [place] [phone] HIV-1/2 Antibody Normal 05-06-2019 [facility] (45822) Comment: Result Comment: Test Not Ind icated Negative No evidence of HIV-1 or HIV- 2 infection. Should recent infection be suspected, repeat testing may be considered 2-3 weeks after this draw. HIV Information: [place] Rev. C ode 3701.243(E): This information has been di sclosed to you from confidential records protected from disclosure by state law. You shall make no further disclosure of this information without the specific, written, and i nformed release of the indiv idual to whom it pertains or as otherwise permitted by state law. A general authorization for the release of medical or other information is not sufficient for the purpose of the release of HIV test results or diagnoses. Performed By: #### CBC, HAL GG, SYPHTX, HBSAG, HIV12C ####[facility] [place] [phone] hepatitis b surf. ag on 2019-05-06 Hepatitis B Surf. Ag Negative Negative Normal 9 [facility] (28914) Comment: Performed By: #### CBC, HAL GG, SYPHTX, HBSAG, HIV12C ####[address] [place] [phone] cbc on 2019-05-06 Absolute nRBC <0.01 <0.01 Normal 05-06-2019 [facility] (20196) Comment: Performed By: #### CBC, HAL GG, SYPHTX, HBSAG, HIV12C #### [facility] [address] [place] [address] Erythrocyte distribution 12.5 11.5-15.0 % Normal 05-06 [facility] width (RBC) [Ratio] [place] (37183) Comment: Performed By: #### CBC, HAL GG, SYPHTX, HBSAG, HIV12C #### [facility] [address] [place], [place] [address] Hematocrit (Bld) [Volume 40.9 36.0-46.0 % Normal 05-06 [facility] fraction] [place] (93821) Comment: Performed By: #### CBC, HAL GG, SYPHTX, HBSAG, HIV12C #### [facility] [address] [place], [place] [address] Hemoglobin (Bld) 13.5 11.5-15.5 g/dL Normal 05-06-2019 [facility] [Mass/Vol] [place] (84034) Comment: Performed By: #### CBC, HAL GG, SYPHTX, HBSAG, HIV12C #### [facility] [address] [place], [place] [address] MCH (RBC) [Entitic mass] 30.3 26.0-34.0 pG Normal 05-06 [facility] (81697) Comment: Performed By: #### CBC, HAL GG, SYPHTX, HBSAG, HIV12C #### [facility] [address] [place], [place] [address] MCHC (RBC) [Mass/Vol] 33.0 30.5-36.0 g/dL Normal 05-06-20 19 [facility] (33684) Comment: Performed By: #### CBC, HAL GG, SYPHTX, HBSAG, HIV12C #### [facility] [address] [place], [place] [address] MCV (RBC) [Entitic vol] 91.7 80.0-100.0 fL Normal 05-06 [facility] (66348) Comment: Performed By: #### CBC, HAL GG, SYPHTX, HBSAG, HIV12C #### [facility] [address] [place], [place] [address] Platelet mean volume 10.8 9.0-12.7 fL Normal 9 [facility] (Bld) [Entitic vol] [place] (97875) Comment: Performed By: #### CBC, HAL GG, SYPHTX, HBSAG, HIV12C #### [facility] [address] [place], [place] [address] Platelets (Bld) [#/Vol] 273 150-400 k/uL Normal 2018 [facility] (25436) Comment: Performed By: #### CBC, HAL GG, SYPHTX, HBSAG, HIV12C #### [facility] [address] [place], [place] [address] RBC (Bld) [#/Vol] 4.46 3.90-5.20 m/uL Normal 05-06-2019 [facility] (74141) Comment: Performed By: #### CBC, HAL GG, SYPHTX, HBSAG, HIV12C #### [facility] [address] [place], [place] [phone] WBC (Bld) [#/Vol] 7.77 3.70-11.00 k/uL Normal 05-06-2019 [facility] (76243) Comment: Performed By: #### CBC, HAL GG, SYPHTX, HBSAG, HIV12C #### [facility] [address] [place], [place] [address] progress on 2019-05 PROGRESS HNO ID: [id number] Normal 05-04-2019 [facility] Author: Jose Kern ([id number]) Service: ? Author Type: Physician Type: Progress Notes Filed: 05/04/2019 3:23 PM Note Text: Please see ultrasound report for details of this visit. Jose Kern M.D. cnov on 2019-05-04 CNOV Office Visit (WOOB) Normal 05-04-[address] [place] [facility] RUSSELL LIZ ([id number]) 1990 [facility] Date Time Provider Department ([id number]) 05/04/19 2:00 PM JOSE KERN WOOB During your visit today, we recorded the following informati on about you: Weight 52.6 kg Jose Kern MD 05/04/2019 3:23 PM Signed Please see ultrasound report for details of this visit. Jose Kern M.D. Referring Provider: JERICA SUMMERS [[id number]] Allergies As of Date: 05/04/2019 Noted Allergy Reaction DUST MITES 03/02/2007 PENICILLINS 03/04/2005 Comments: rash, hives SULFA (SULFONAMIDE ANTIBIOTICS) 04/10/2017 4 - Hives Date Reviewed: 03/24/2019 Reviewed by: Clara Nieto Ma - Fully Assessed Primary Visit Diagnosis:12 weeks gestation of [Z3A .12] Other Visit Diagnoses:Encounter for supervision of ot er normal in first trimester [Z34.81] Encounter for nuchal translucency testing [Z36.82] Prescriptions as of 05/04/2019 Sig: VITAMIN,CALCIUM,MINE* Take 1 tablet by mouth. SERTRALINE 50 MG TABLET Take 1 tablet by mouth once d* Patient not taking: Reported on 03/11/2019 TRIAMCINOLONE ACETONIDE 0.1 %* Apply 1 application to affect * Patient not taking: Reported on 03/11/2019 ALBUTEROL SULFATE HFA 90 MCG/* Inhale 2 Puffs as instructed * Problem List As Of Date 05/04/2019 Noted Resolved OTHER ATOPIC DERMATITIS [L20.89] 02/19/2007 EXTRINSIC ASTHMA UNSPECIFIED [J45.909] 02/19/2007 ALLERGIC RHINITIS NOS [J30.9] 02/19/2007 Pain in joint, pelvic region and thigh [M25.559]09/01/2012 History of delivery [Z98.891] 03/07/2016 02/13/2017 More... History of herpes genitalis [Z86.19] 03/07/2016 More... Tobacco use in [O99.330] 03/07/2016 More... History of asthma [Z87.09] 03/07/2016 More... Social problem [Z65.9] 03/07/2016 More... Pelvic pain in [O26.899, R10.2] 03/07/2016 017 More... Patient requested diagnostic testing [Z01.89] 03/07/2016 More... Trichomonal vaginitis during in first*03/19/2016 0 02/13/2017 More... Depression with anxiety [F41.8] 08/30/2016 Positive GBS test [B95.1] 10/10/2016 Polyhydramnios in third trimester [O40.3XX0] 10/25/201601/31 38 weeks gestation of [Z3A.38] 10/25/2016 02/14/20 17 Hemorrhoids [K64.9] 07/14/2017 More... Rectal bleeding [K62.5] 07/30/2017 07/31/2017 Rectal bleeding [K62.5] 07/31/2017 Previous delivery affecting *03/11/2019 More... History of depression [Z86.59] 03/11/2019 More... History of depression [Z87.59, Z86.5*03/11/2019 Nausea and vomiting in [O21.9] 03/11/2019 More... History of polyhydramnios [Z87.59] 03/11/2019 More... Encounter Status:Closed by JOSE KERN MD on 05/04/19 urine culture on 20-03-23 Bacteria identified Sp. Request/Comment: - Specimen received in pre servative Normal 03-24-2019 [facility] Nom (U) [place] ([id number]) Culture Result - <10,000 CFU/ml Normal urogenital [place]oria Comment: Performed By: #### URCUL ### # [place] [address] toxicology screen,ur on 2019-03-24 Amphetamines, Urine Negative Negative Normal 03-24-2019 [facility] (98923) Comment: Result Comment: Cutoff thres hold at 1000 ng/mL. Performed By: #### UTOX2 ### # [place] [address] [place] [address] Barbiturates, Urine Negative Negative Normal 03-24-2019 [facility] (47691) Comment: Result Comment: Cutoff thres hold at 200 ng/mL. Performed By: #### UTOX2 ### # [place] [address] [place] [address] Benzodiazepines, Ur Negative Negative Normal 03-24-2019 [facility] (53922) Comment: Result Comment: Cutoff thres hold at 200 ng/mL. Performed By: #### UTOX2 ### # [place] [address] [place] [address] Cannabinoids, Urine Negative Negative Normal 03-24-2019 [facility] (72768) Comment: Result Comment: Cutoff thres hold at 50 ng/mL. Performed By: #### UTOX2 ### # [facility] [address] [place] [address] Cocaine, Urine Negative Negative Normal 03-24-2019 [facility] (96390) Comment: Result Comment: Cutoff thres hold at 300 ng/mL. Performed By: #### UTOX2 ### # [facility] [place] [address] Ethanol, Urine <11 <11 Normal 03-24-2019 [facility] (26864) Comment: Performed By: #### UTOX2 ### # [facility] [place] [phone] Opiates, Urine Negative Negative Normal 03-24-2019 [facility] (63587) Comment: Result Comment: Cutoff thres hold at 300 ng/mL. Performed By: #### UTOX2 ### # [facility] [place] [phone] Oxycodone, Urine Negative Negative Normal 03-24-2019 [facility] (05268) Comment: Result Comment: Cutoff thres hold at 100 ng/mL. Comment: Immunoassay screen only. Mixer Pigment ss reactivity with other substances can occur with immunoassay screening. Detection of any drug(s) in this urine toxicology panel is presumptive only. These tests are for med ical purposes only and shoul d not be used for compliance monitoring, legal, or forensic use. Samples should be within nor mal physiological conditions (e.g. pH). This assay does not include adulteration/specimen validity testing. In clinical settings, confir matory testing is at the practitioner's discretion [1]. If clinically indicated, confirmation by high specificity, quantitative methodology, which includes adulteration/speci men validity testing, may be requested on the same specimen through Client Services ([phone]) if contacted within 48 hours of initial testing. [1]Substance Abuse and Menta l Health Services Administration (2012). Clinical Drug Testing in Primary Care Technical Assistance Publication Series 32. [facility] of [facility] and Human Services, [place], p.10. Performed By: #### UTOX2 ### # [facility] [address] [place], [place] [address] Phencyclidine, Urine Negative Negative Normal 9 [facility] (88865) Comment: Result Comment: Cutoff thres hold at 25 ng/mL. Performed By: #### UTOX2 ### # [facility] [address] [place], [place] [address] progress on 2019-03 PROGRESS HNO ID: [id number] Normal 03-24-2019 [facility] Author: Jerica Wood [place] ([id number]) Service: ? Author Type: Physician Type: Progress Notes Filed: 03/24/2019 2:12 PM Note Text: INITIAL OB ASSESSMENT OB Provider: Jerica Wood MD HPI: Russell Liz is a 28 year old female h ere to establish Obstetrical Care. Patient's last menstrual period was 02/01/2019 (exact date). from OB Dating Form. Cycle length: 30 days Complaints: nausea without vomiting was planned. Obstetric History T2 L2 SAB1 TAB1 Ectopic0 Multiple0 Live Births2 Prior : yes x 2 History of 4th degree laceration: No Patient's Risk Screening for delivery: History of abnormal pap: No Prior treatment for cervical dysplasia: none. History of STDs: HSV Tobacco use: Yes Caffeine use: Yes Drug use: Yes - marijuana Alcohol use: No Multivitamin with Folic acid: Yes Occupation: home Restorationist or heritage: No Would refuse blood transfusion if medically necessary: No BMI 20.63 kg/(m2) Patient BMI over 30? No Marital Status:Committed relationship Partner: Name: Florin Ayala Age: 28 Occupation: [employer] Gender: male History of STDs: None PAST MEDICAL HISTORY Diagnosis Date - Abnormal Pap smear of cervix 12/2015 LGSIL pap - Allergic rhinitis, cause unspecified Allergic rhinitis - Anemia - Asthma - Depression with anxiety 08/30/2016 - Eczema - Family history of malignant hyperthermia MATERNAL GRANDMOTHER - fracture age 10 left arm , playground accident - Genital herpes - Headache(784.0) - PMH - PAST MEDICAL HISTORY OF normal color vision - Varicella without mention of complication age 11 months and age 3 years per mother PAST SURGICAL HISTORY Procedure Laterality Date - DELIVERY ONLY , low transverse - DELIVERY ONLY 10/29/2016 - HEMORRHOID SURGERY HX 07/30/2017 Fall - INSERTION OF IUD - REMOVE TONSILS/ADENOIDS,<12 Y/O Current Outpatient Medications on File Prior to Visit: Gdaliwum-Cd-Kfd-Fe-FA ( VITAMIN) tab Take 1 tablet by mouth. sertraline (ZOLOFT) 50 mg tablet Take 1 tablet by mouth once daily. (Patient not taking: Reported on 03/11/2019 ) triamcinolone acetonide (KENALOG) 0.1 % cream Apply 1 applic ation to affected area three times daily. Apply sparingly to area for rash/itching. (Patient not taking: Reported on 03/11/2019 ) albuterol HFA (PROVENTIL HFA, VENTOLIN HFA) 90 mcg/actuation inhaler Inhale 2 Puffs as instructed every 4 hours as needed. No current facility-administered medications on file prior t o visit. Review of Systems: GENERAL: Negative for: Fever or Chills HEENT: Negative for: Headache, Impaired Vision, Ringing in E ars, Nosebleeds NECK: Negative for: Swelling, Pain, Stiffness RESPIRATORY: Negative for: Cough, Shortness of breath, Wheez ing GASTROINTESTINAL: Negative for: Heartburn, Constipation, Rebeca rrhea, Blood in stool, Vomiting. ++ nausea MUSCULOSKELETAL: Negative for: Muscle or joint pain, stiffne ss, Joint swelling NEUROLOGIC/PSYCHIATRIC: Negative for: Weakness, Paralysis, N umbness, Tingling, Tremor, Anxiety, Memory loss. ++ depression - seei wan counselor weekly SKIN: Negative for: Rash, Itching GENITOURINARY: Negative for: vaginal itching, vaginal discha rge, hematuria or dysuria PHYSICAL EXAM: BP 92/52 Ht 5' 1.5 (1.56m) Wt 111 lb (50 .3kg) LMP 02/01/2019 BMI 20.64 kg/(m2). GENERAL: pleasant female in no apparent distress DERMATOLOGY: Normal, without lesions, non-icteric and non-hi rsute NECK: Supple, full range of motion, no adenopathy and thyroi d normal BREAST: soft, non-tender, symmetric, no dominant mass, sylvia l nipple-areolar complex, no lymphadenopathy and no nipple dis charge ABDOMEN: soft, non-tender and no masses NEURO: alert and oriented x3,exam grossly non-focal PELVIS: External genitalia normal without lesions. Perineal body intact. No vaginal or cervical lesions. Cervix closed. Uterus 6 week size. No adnexal masses or tenderness. Clinical Pelvimetry: Pelvimetry clinically assessed as adequ ate Limited OB ultrasound exam: single intrauterine an d positive cardiac activity ASSESSMENT: 28 year old at 6.4 wks gestational age PLAN: 1) Patient oriented to practice. Discussed nutrition, folic acid supplementation, dietary ghislaine delines, exercise, smoking, alcohol, caffeine, and drug use. Discussed routine OB labs including STD/HIV. Discussed aneuploidy screening options including serum scree melisa and nuchal translucency. NT ordered 2) h/o polyhydramnios - recommend third trimester official u ltrasound 3) declines flu 4) reviewed SSRI in - pt declines to restart. No SI or HI Follow up in 4 weeks or sooner prn. Jerica Troy MD gc/chlamydia amplif on 2019-03-24 Chlamydia Amplif Negative for Chlamydia Normal 03-24-2019 [facility] trachomatis by Per felix ([id number]) amplification. Comment: Performed By: #### GCCT #### [facility] [address] [place] [address] GC Amplification Negative for Neisseria Normal 03-24-2019 [facility] gonorrhoeae by Per felix ([id number]) amplification. Comment: Performed By: #### GCCT #### [facility] [address] [place] [address] GC/Chlam Amp Source Cervix Normal 03-24-2019 [facility] ([id number]) Comment: Performed By: #### GCCT #### [facility] [address] [place], [place] [address] cytology on 2019-03 CYTOLOGY Specimen originated from [facility] Normal 03-24-2019 [place] Specimen #: [id number] [facility] Submitting Physician: JERICA TROY MD [place] SPECIMEN SUBMITTED ( [id number]) A: CERVICAL, SCREENING, FLUID FINAL DIAGNOSIS A. CERVICAL, SCREENING, FLUID Satisfactory for interpretation. No endocervical component. Negative for intraepithelial lesion or malignancy. This specimen has been analyzed by the ThinPrep Imaging Syst em, an automated imaging and review system, which assists the labor atory in evaluating cells on ThinPrep Pap tests. Following automated imaging, selected reed from every slide are reviewed by a cytotechn ologist. ADEN Bustillo(ASCP) (Electronic Signature) CLINICAL DATA - 6 WEEKS, HPV Testing: Yes, Reflex HPV for ASCUS Date of Last Menstrual Period: 02/01/2019 STAINS A: CERVICAL, SCREENING, FLUID THIN PREP LAUNDRY EQUIPMENT OPERATOR Walt Stout M.D., Hide Sorter Date of Report: 03/29/2019 Date of Procedure: 03/24/2019 Date of Receipt: 03/25/2019 Submitted by: JERICA TROY MD Location: [place] Diagnostic interpretation performed at [facility], [address] [id number]. CLIA Number: [id number] The Pap Smear is a screening test for cervical cancer. False negative results occur with all screening tests, emphasizing the need for rescreening at recommended intervals, and clinical correlati on. progress on 2019-03 PROGRESS HNO ID: [id number] Normal 03-11-2019 [facility] Author: Vanessa Franco RN Newton ([id number]) Service: ? Author Type: ? Type: Progress Notes Filed: 03/11/2019 5:23 PM Note Text: #: 1, Date: 05/12/11, Sex: Male, Weight: 7 lb 13 oz (3.544 k g), GA: 39w2d, Delivery: , Other, Apgar1: None, Apgar5: None, Sheri ng: Living, Comments: failure to progress #: 2, Date: 2012, Sex: None, Weight: None, GA: 6w0d, Deliver y: None, Apgar1: None, Apgar5: None, Living: None, Comments: No Complications #: 3, Date: 07/24/15, Sex: Unknown, Weight: None, GA: 6w0d, Delivery: None, Apgar1: None, Apgar5: None, Living: None, Commen ts: None #: 4, Date: 10/29/16, Sex: Male, Weight: 7 lb 7 oz (3.374 kg ), GA: 39w0d, Delivery: , Low Transverse, Apgar1: 8, Apgar5: 9, L iving: Living, Comments: maternal anemia during , RC/S, poly hydramnios, EBL 800cc #: 5, Date: None, Sex: None, Weight: None, GA: None, Deliver y: None, Apgar1: None, Apgar5: None, Living: None, Comments: No ne cnnurse on CNNURSE Nurse Visit (WOOB) Normal 03-11-2019 [place] RUSSELL Hdez ([id number]) 1990 [facility] Date Time Provider Department ([id number]) 03/11/19 1:00 PM NURSE PNOB [facility] WSTR WOOB During your visit today, we recorded the following informati on about you: Last Period 02/01/19 Vanessa Franco RN 03/11/2019 1:32 PM Signed SEQUENTIAL SCREENINGS The [facility] offers sequential s creenings for women who are interested in screenings for chromosomal abnormalit ies and certain defects during a . The sequential screen combines ultrasound and blo od tests to determine the risk of chromosomal abnormalities, including D own's Syndrome (Trisomy 21) and Trisomy 18, as well as open neural tube def ects including spina bifida. Ultrasound exa mination is performed between 11 weeks and 13 weeks gestational age. Blood tests are drawn a fter the ultrasound and again later in the between 15 and 21 weeks gestational age. Thomas e let your physician know if you are interested in this testing. It tera l require an appointment with our ultraso und build technician. This is not an ultrasound performed by a physician in our office during a routine visit. SIGNS AND SYMPTOMS OF LABOR 1. Contractions every 10 minutes or more often 2. Clear, pink, or brownish fluid (water) leaking from vagin a 3. Feeling that baby is pushing down, pressure 4. Low, dull backache 5. Cramps that feel like a period 6. Cramps with or without diarrhea If you notice any of the abo ve symptoms, contact our office at [phone] and ask to speak with a nurse. After hours, you can call doctors registry at [phone] O R call [facility] at [phone] and ask to have the doctor ignition mechanic paged. If you consider this an emergency, dial 9-1-1 or go to your nearest emergency department. Cord-Blood Banking Up until recently, the umbil ical cord--along with the blood that remained in it after a baby was born and the cord cut--was simp ly discarded by the hospital. Then, in the late , researchers discovered that cord bl ood possessed unusual properties that made it useful in the tr eatment of patients with some cancers and other illnesses. While the a ctual process of collecting cord blood is straightforward, many parents are not even aware that thi s option now exists, much less familiar with all the issues involved. The case for saving your baby's cord blood The blood running back and forth between your baby and the placenta is full of immature cells called stem cells. Unlike embryon ic stem cells, which have the ability to develop into any type of body cell, cord-bl ood stem cells already are locked into a certain, vital functio n: making all the different components of the blood, such as platelets, white blood cells, and red blood cells-serving, in effect, like bone marrow. When transfused into a patient whose own blood cells have faulty genetic coding or have bee n destroyed by chemotherapy or other cancer treatments, the cord-blood cell s can implant themselves in the bone marrow and generate legions of new, h ealthy cells. These days, cord-blood transplants most commonly are u sed in cancer patients when a donor can't be found for a bone-marrow transplant. Th e treatment is particularly effective in young patients-the [facility] Cord Blood Bank reports a 70 percent success rate in childr en, but only 20 to 40 percent in adults. Researchers envision improving those odds and see many future applications as well, such as curing sickle cell disease and other blood-related genetic illnesses. So ther e is a possibility that your child, or someone else, may need these super-healthy and versatile med ls one day. The drawbacks Aside from not knowing about this medical option , the main reason most people do not save their baby's stem cells is cost. In a private bl ood bank, the initial costs run from $275 to $1,500. Most also charge a yearly storage fee of $50 to $95. The advantage of using a [facility] bank is that your sample is saved for only you to use. An alternative to private banking Public cord-blood joy are an alternative. These cost no money to use, but your sample is not specifically saved for you. Another perso n with a more immediate need may use it. If the time should come audi t you need stem cells, yours may still be available, or you may use donations from other people without charge. You also can direct your sample to go to a relative with an immediate need if the blood type matches. Anyone else needing to use stem cells from a public bank who has not been a do nor must pay for it, sometimes tens of thousands of dollars. Will my family benefit from saving stem cells? Right now, situations in which stem cells would be helpful are quite rare. As mentioned earlier, stem-cell transplants are most commonly u sed for rare genetic conditions and for some types of cancer, including l eukemia and lymphoma. And even with these present uses, many questions remain. In cancer treatment, for example, some researchers are concerned abou t the wisdom of transplanting back into the child the same cells that already showed a propensity to become malignant. Doctors also aren 't sure if the number of cells taken at the time of would be enough to treat a full-grown 16-year-old. It is also not completely clear how active the cells would be after years of being stored. The treatment is so new and rare, we just do n't have the data yet to resolve these important issues. What do the experts say? The [employer] encourages philanth [facility] blood banking in public joy, but only for families with a current or potent ial need. Blood-bank proponents encour age any kind of banking, pointing out that research is getting closer and closer to many diverse, live-saving ap plications. How do I decide? Each family must weigh the p ros and cons for themselves. Some families say that any cost is worth their peace of mind. Others say that in th e face of uncertainty about the effectiveness of the treatment, they w ill use their resources elsewhere. Some choose the middle ground of donati ng publicly, knowing that their sample might benefit another family, if not themselves. For more information, ask your doctor or nurse, and be sure to c heck out our article on the technical aspects of cord-blood banking. Technical Aspects of Cord-Blood Banking If you are interested in storing your baby's umbilical -cord blood because of its possible use in emerging medical treatments, you must make arrangements with a blood bank before your child is b orn. The collection procedure is quite simple: After delivery of the baby, the umbilica l cord is clamped and cut in the usual way. The blood that remains in the umbil ical-cord vessels is then collected in sterile containers. The blood may be rem quiana from the cord with a large needle or allowed to flow freely, depending on the company's collection system. The containers may look like large test tubes or like the plastic bags used in a blood bank. It does not cause the mother or the baby a ny pain to collect the blood, and no blood is taken that the baby needs at the [facility]. The nurse, hvac r tech, or physician will then label the samples, check them over with you, and package them for a special pickup arranged wit h a commercial carrier. When the blood arri ves at the blood-bank facility, it is processed and the parents are notified. It is then kept in an advanced s torage system for years. How do I know that my sample is safe? Power outages and bankruptci es potentially could threaten any organization, but so far none have been reported. It is to be hoped that the scientists in these joy would arrange for safe transfer to another [facility] if the need arose. YOU MUST MAKE ARRANGEMENTS AHEAD OF TIME! Public cord-blood joy--DONATION: [employer] [phone] [facility]'s Placental Blood Program, [facility] Umbilical Cord Blood Bank, Private cord-blood joy--SAVING FOR YOUR OWN USE: [employer]/, (I think this is the least expensive) [employer] [phone] [employer], [phone]) [employer] [place] Cord Blood Bank, [phone] 700-CORD Cells, [phone] [place] Cry[facility]ank, Cord Blood Registry, (171) CORDBLOOD [employer], An Internet search may provide you with additional listings. Vanessa Franco RN 03/11/2019 5:23 PM Signed #: 1, Date: [birth year], Sex: Male, Weight: 7 lb 13 oz (3.544 k g), GA: 39w2d, Delivery: , Other, Apgar1: None, Apgar5 : None, Living: Living, Comments: failure to progress #: 2, Date: 2012, Sex: None, Weight: None, GA: 6w0d, D elivery: None, Apgar1: None, Apgar5: None, Living: None, Comments: No Complic ations #: 3, Date: 07/24/15, Sex: Unknown, Weight: None, GA: 6w0d , Delivery: None, Apgar1: None, Apgar5: None, Living: None, Comments: No ne #: 4, Date: 10/29/16, Sex: Male, Weight: 7 lb 7 oz (3.374 kg ), GA: 39w0d, Delivery: , Low Transverse, Apgar1: 8, Apgar5: 9, L iving: Living, Comments: maternal anemia during , RC/S, po lyhydramnios, EBL 800cc #: 5, Date: None, Sex: None, Weight: None, GA: None, D elivery: None, Apgar1: None, Apgar5: None, Living: None, Comments: None Vanessa Franco RN 03/11/2019 5:23 PM Signed FOB involved. Pt had 2 previous C sections. She desires a repeat C section by Dr Wood. She desires a PPTL. Patient will need to sign Title 19 form. Pt has a history of depression/anxiety diagnosed 2 years ago. She has been off medication x 2 weeks. States she did have depression after the of her last child. Discussed increased risks of depression during and and importance of reporting the development o r worsening of symptoms should they occur.Pt denies any suicida l thoughts for the past 1 1/2 years. She currently goes to counseling every week in [facility]. Pt has a history of genital herpes. Discussed with pt. importance of reporting any outbreaks during should they occur.Patient s tates FOB unaware that she has a history of herpes and she is asking th at we do not speak about this in front of him. I did discuss with patient importance of in forming any partners she has about this. Pt smokes 2 cigarettes a day, down from 1 ppd. Discussed risks of smoking during . Advised pt to q uit.Patient is complaining of nausea and occasional vomiting in . Dietary considerations discussed . Vitamin B6 recommended. Advised p atient to call/come in if she is unable to keep any food or fluids nikky n in a 24-hour period. Patient desires nuchal ultrasound. Considering thien ic carrier screening testing. TKRN Referring Provider: SELF [200] Allergies As of Date: 03/11/2019 Noted Allergy Reaction DUST MITES 03/02/2007 PENICILLINS 03/04/2005 Comments: rash, hives SULFA (SULFONAMIDE ANTIBIOTICS) 04/10/2017 4 - Hives Date Reviewed: 03/11/2019 Reviewed by: Vanessa Franco RN - Fully Assessed Reason for Visit: Care [86] Cmt: Pre-New OB Primary Visit Diagnosis:Prev ious delivery affecting [O34.219] Other Visit Diagnoses:PREV DELIVERY [654.23] [O34.2 19] History of depression [Z86.59] History of depression [Z87.59, Z86.59] History of herpes genitalis [Z86.19] Tobacco use during , antepartum [O99.330] Nausea and vomiting in [O21.9] Patient requested diagnostic testing [Z01.89] History of polyhydramnios [Z87.59] Order(s):PT ED OBSTETRICS AND GYNECOLOGY [[id number]] Ord er #: [id number]: 1 PT ED OBSTETRICS AND GYNECOLOGY [] Order #: [id number] 2Qty: 1 PT ED OBSTETRICS AND GYNECOLOGY [] Order #: [id number] 4Qty: 1 PT ED OBSTETRICS AND GYNECOLOGY [] Order #: [id number] 5Qty: 1 PT ED OBSTETRICS AND GYNECOLOGY [] Order #: [id number] 6Qty: 1 Prescriptions as of 03/11/2019 Sig: VITAMIN,CALCIUM,MINE* Take 1 tablet by mouth. ALBUTEROL SULFATE HFA 90 MCG/* Inhale 2 Puffs as instructed * SERTRALINE 50 MG TABLET Take 1 tablet by mouth once d* Patient not taking: Reported on 03/11/2019 TRIAMCINOLONE ACETONIDE 0.1 %* Apply 1 application to affect * Patient not taking: Reported on 03/11/2019 Problem List As Of Date 03/11/2019 Noted Resolved OTHER ATOPIC DERMATITIS [L20.89] INVALID FOR* EXTRINSIC ASTHMA UNSPECIFIED [J45.909] INVALID FOR* ALLERGIC RHINITIS NOS [J30.9] INVALID FOR* Pain in joint, pelvic region and thigh [M25.559]INVALID FOR* History of delivery [Z98.891] INVALID FOR* 7 More... History of herpes genitalis [Z86.19] INVALID FOR* More... Tobacco use in [O99.330] INVALID FOR* More... History of asthma [Z87.09] INVALID FOR* More... Social problem [Z65.9] INVALID FOR* More... Pelvic pain in [O26.899, R10.2] INVALID FOR*2016 More... Patient requested diagnostic testing [Z01.89] INVALID FOR* More... Trichomonal vaginitis during in first*INVALID FOR* 02/13/2017 More... Depression with anxiety [F41.8] INVALID FOR* Positive GBS test [B95.1] INVALID FOR* Polyhydramnios in third trimester [O40.3XX0] INVALID FOR* 38 weeks gestation of [Z3A.38] INVALID FOR* 017 Hemorrhoids [K64.9] INVALID FOR* More... Rectal bleeding [K62.5] INVALID FOR*07/31/2017 Rectal bleeding [K62.5] INVALID FOR* Previous delivery affecting *INVALID FOR* More... History of depression [Z86.59] INVALID FOR* More... History of depression [Z87.59, Z86.5*INVALID FOR* Nausea and vomiting in [O21.9] INVALID FOR* More... History of polyhydramnios [Z87.59] INVALID FOR* More... Other instructions from your clinician: SEQUENTIAL SCREENINGS The [facility] offers sequential screenings for women who are interested in screenings for chromosomal abnormalities and c ertain defects during a . The sequential screen combines u ltrasound and blood tests to determine the risk of chromosomal abnormaliti es, including Down's Syndrome (Trisomy 21) and Trisomy 18, as well as open neural tube defects including spina bifida. Ultrasound examination is pe rformed between 11 weeks and 13 weeks gestational age. Blood tests a re drawn after the ultrasound and again later in the between 15 a nd 21 weeks gestational age. Please let your physician know if you are i nterested in this testing. It will require an appointment with our ultras ound build technician. This is not an ultrasound performed by a physici an in our office during a routine visit. SIGNS AND SYMPTOMS OF LABOR 1. Contractions every 10 minutes or more often 2. Clear, pink, or brownish fluid (water) leaking from vagin a 3. Feeling that baby is pushing down, pressure 4. Low, dull backache 5. Cramps that feel like a period 6. Cramps with or without diarrhea If you notice any of the above symptoms, contact our office at [phone] and ask to speak with a nurse. After hours, you can call doctors registry at [phone] O R call [facility] at [phone] and ask to have the doctor ignition mechanic paged. If you consider this an emergency, dial 9- or go to your nearest emergency department. Cord-Blood Banking Up until recently, the umbilical cord--along with the blood that remained in it after a baby was born and the cord cut--was simply dis carded by the hospital. Then, in the late , researchers discovered th at cord blood possessed unusual properties that made it useful in the pino tment of patients with some cancers and other illnesses. While the [facility] process of collecting cord blood is straightforward, many parents ar e not even aware that this option now exists, much less familiar with a ll the issues involved. The case for saving your baby's cord blood The blood running back and forth between your baby and the p lacenta is full of immature cells called stem cells. Unlike embryonic s tem cells, which have the ability to develop into any type of body cell , cord-blood stem cells already are locked into a certain, vital function : making all the different components of the blood, such as platelets, wh ite blood cells, and red blood cells-serving, in effect, like bone mar row. When transfused into a patient whose own blood cells have faulty genetic coding or have been destroyed by chemotherapy or other cancer treat ments, the cord-blood cells can implant themselves in the bone marrow a nd generate legions of new, healthy cells. These days, cord-blood transplants most commonly are used in cancer patients when a donor can't be found for a bone-marrow trans plant. The treatment is particularly effective in young patients-the [facility] Cord Blood Bank reports a 70 percent success rate in children, but only 20 to 40 percent in adults. Researchers envision im proving those odds and see many future applications as well, such as olivia collier sickle cell disease and other blood-related genetic illnesses. So there is a possibility that your child, or someone else, may need these super-healthy and versatile cells one day. The drawbacks Aside from not knowing about this medical option, the main r dalton most people do not save their baby's stem cells is cost. In a [facility] blood bank, the initial costs run from $275 to $1,500. Most also c bridget a yearly storage fee of $50 to $95. The advantage of using a private bank is that your sample is saved for only you to use. An alternative to private banking Public cord-blood joy are an alternative. These cost no mo bony to use, but your sample is not specifically saved for you. Another p erson with a more immediate need may use it. If the time should come that you need stem cells, yours may still be available, or you may use donation s from other people without charge. You also can direct your sample to go to a relative with an immediate need if the blood type matches. Anyone els e needing to use stem cells from a public bank who has not been a donor m ust pay for it, sometimes tens of thousands of dollars. Will my family benefit from saving stem cells? Right now, situations in which stem cells would be helpful a re quite rare. As mentioned earlier, stem-cell transplants are most commonl y used for rare genetic conditions and for some types of cancer, includ ing leukemia and lymphoma. And even with these present uses, many questions remain. In cancer treatment, for example, some researchers are concerned about the wisdom of transplanting back into the child the same cells that alread y showed a propensity to become malignant. Doctors also aren't sure if the number of cells taken at the time of would be enough to treat a full-grown 16-year-old. It is also not completely clear how active the cells would be after years of being stored. The treatment is so new and rar e, we just don't have the data yet to resolve these important issues. What do the experts say? The [employer] encourages philanthropic blood banking in public joy, but only for families with a current or pot ential need. Blood-bank proponents encourage any kind of banking, pointin g out that research is getting closer and closer to many diverse, live- saving applications. How do I decide? Each family must weigh the pros and cons for themselves. Brayan e families say that any cost is worth their peace of mind. Others say that in the face of uncertainty about the effectiveness of the treatment, they w ill use their resources elsewhere. Some choose the middle ground of donati ng publicly, knowing that their sample might benefit another family, if n ot themselves. For more information, ask your doctor or nurse, and be sure to check out our article on the technical aspects of cord-blood banking. Technical Aspects of Cord-Blood Banking If you are interested in storing your baby's umbilical-cord blood because of its possible use in emerging medical treatments, you must make arrangements with a blood bank before your child is born. Th e collection procedure is quite simple: After delivery of the baby, the umbilical cord is clamped an d cut in the usual way. The blood that remains in the umbilical-cord vess els is then collected in sterile containers. The blood may be removed fr om the cord with a large needle or allowed to flow freely, depending on the company's collection system. The containers may look like large test t ubes or like the plastic bags used in a blood bank. It does not cause the mother or the baby any pain to collect the blood, and no blood is taken th at the baby needs at the moment. The nurse, hvac r tech, or physician will then label the samples , check them over with you, and package them for a special pickup arrange d with a commercial carrier. When the blood arrives at the blood-bank facility, it is processed and the parents are notified. It is then kept i n an advanced storage system for years. How do I know that my sample is safe? Power outages and bankruptcies potentially could threaten an y organization, but so far none have been reported. It is to b e hoped that the scientists in these joy would arrange for safe transfe r to another facility if the need arose. YOU MUST MAKE ARRANGEMENTS AHEAD OF TIME! Public cord-blood joy--DONATION: [employer] [phone] [facility]'s Placental Blood Program, [facility] Umbilical Cord Blood Bank, Private cord-blood joy--SAVING FOR YOUR OWN USE: [employer], (I think this is the least expensive) [employer] [phone] [employer], (412) [employer] [place] Cord Blood Bank, [phone]) 700-CORD Cells, [phone] [place] Cry[facility], Cord Blood Registry, (448) [facility] [employer], An Internet search may provide you with additional listings. Disposition: Return in 6 days (on 03/17/2019) for New OB wit h Dr Wood. Follow-up and Disposition History Recorded Encounter Status:Closed by VANESSA FRANCO RN on 03/11/19 emergency report on 2017-09-18 EMERGENCY REPORT [facility] EM[facility]GENCY Sylvia l 09-18-2017 [facility] ROOM REPORT NAME ACCOUNT SEX [facility] AGE ADMIT DISCHARGE PT MED. ([id number]) RECORD# NUMBER DATE DATE TYPE RAVI, [id number] F 26 08/26/17 08/26/17 3 RUSSELL Michaud [id number] ROOM: ER DATE OF : 1990 DICTATING PHYSICIAN: Rich Price HISTORY OF PRESENT ILLNESS: This is a 26-year-old young lady with pain in her right posterior hip, sciatic area. She has had this before. She has been to therapy before. It has been quite a long time. She said she has had this for many years. She came here to the emergency room requesting medications for this. Her family doctor is Dr. Garcia. She has not been back to see Dr. Garcia for this problem. She is seen in the presence of her . He notes that she has had this for quite some time. She has been through therapy and does not seem to be a reasonable alternative for care at this time. She states muscle relaxants did help her in the past. She does not recall the name. She states she is not in pain management. SOCIAL HISTORY: She is not a smoker. She states that she is not employed. She does not require a work excuse. REVIEW OF SYSTEMS: She denies any recent injury. She states she is not . She states that as far as she knows, there has been no trauma. She denies any rashes, fevers. No urinary complaints. PHYSICAL EXAMINATION: On exam, she is pleasant, alert and oriented. She is seen in room #7. She gives her own history. Head is normocephalic. Tympanic membranes, canals and pinnae are normal. Pharynx is symmetric without any stridor or hoarseness. Neck is supple. There is no anterior or posterior cervical adenopathy. Lungs are clear. There is no expiratory wheeze or rales. The patient is not overweight. Her abdomen is soft. The discomfort is to the right posterior hip area, presenting as sciatica. She states it extends down towards her knee. She has +2/+4 patellar and Achilles reflexes. There is no peripheral edema. She has good toe flexion and extension. She has good strength and sensation bilaterally. EMERGENCY DEPARTMENT COURSE AND TREATMENT: This is a recurrent problem. I told her that her family doctor will have to take care of this in the future, but because of the current movement in medical circles to make sure that you obtain all of your medications from one physician for pain management, but that we would take care of her tonight and she is to make sure she follows up with her family doctor. She was given Tramadol, prednisone and Flexeril here in the emergency room. The patient states she has had previous evaluations for her sciatic pain. Page 1 of 2 [facility] Emergency Room Report DIAGNOSIS: Recurrent chronic sciatica discomfort. PLAN/DISPOSITION: She was given prescriptions for ibuprofen, prednisone and Flexeril for home. She is instructed to follow up with her family doctor. D: Rich Price DO TD: 09/06/17 02:03 JOB #: [id number] Transcribed by: karen Electronically signed by: E-SIGN RICH PRICE DO 09/18/17 00:12 Page 2 of 2 [facility] Emergency Room Report protime on INR Coag RelTime (Bld) 1.0 0.9-1.3 {INR} Normal 018 [facility] ([id number]) Comment: Result Comment: Vitamin K An tagonist (VKA) Therapeutic Range: INR 2 to 3 (Target INR of 2.5)Note: For patients treated with VKA drugs, such as warfarin, the [place] [employer] of Chest Physicians 2012 Guideline recommends a therapeutic INR range of 2 to 3 (target INR of 2.5). This recommendation includes high-risk patients with antiphospholipid syndrome with previous arterial or venous thromboem bolism, current-generation mechanical or bioprosthetic aortic heart v alve replacement.Note: Patients with mechanical aortic valve replacement and additional risk factors for thromboembolic events (atrial fibrillation, previous thromboembolism, LV dysfunction, hypercoagulable conditions) or an older generation mechanical AVR (i.e., ball in-Cage) or any mechani cheyanne MVR should have a INR therapeutic range of 2.5 to 3.5 (target INR of 3) .Kaitlin GH, et al. Chest 2012, 141:7S-47SNishimura RA, et a divina. [facility] 2017, 70: 252-289 Performed By: #### FIBCT, PT , PTT ####[facility] [address] [place] [address] 0 PT Sec 10.5 9.7-13.0 sec Normal 07-31-2017 [facility] (07560) Comment: Performed By: #### FIBCT, PT , PTT ####[facility] [address] [place] [address] 0 progress on 2017-07 PROGRESS HNO ID: [id number]: Marge grimes 07-31-2017 [facility] GuttmanService: General SurgeryAuthor ([id number]) Type: PhysicianType: Progress NotesFiled: 07/31/2017 6:32 AMNote Text:INPATIENT PROGRESS NOTESERVICE DATE: 07/31/2017SERVICE TIME: 6:30 AMPRIMARY SERVICE: general surgerySubjectiveCHIEF COMPLAINT: post op bleedingINTERVAL HPI: patient returned to surgery EUA, evacuation of blood clot,no further bleeding noted. Transfused over nightCurrent hospital medications:scopolamine 1 mg over 3 days 1 Patch (TRANSDERM-SCOP) 1 Patch TRANSDERMALq 72 HR[START ON 08/02/2017] scopolamine - REMOVE PATCH OTHER q 72 HRscopolamine - VERIFY patch OTHER q 8 HoxyCODONE IR 5 mg tab(s) (ROXICODONE) 5 mg ORAL PRNoxyCODONE-acetaminophen 5-325 mg 1-2 tablet (PERCOCET) 1-2 tablet ORAL q 4H PRNmorphine 1 mg injection 1 mg IV/IM q 1 H PRNferric gluconate 125 mg in NaCl 0.9% 100 mL (FERRLECIT) 125 mg INTRAVENOUSDAILY AT 6 PMascorbic acid (vitamin C) 250 mg tab(s) (VITAMIN C) 250 mg ORAL DAILYNaCl 0.9% iv infusion 75 mL/hr INTRAVENOUS CONTINUOUSObjectivePHYSICAL EXAM:BP 82/44 Pulse 65 Temp (Src) 97.7 (Axillary) Resp 16 Ht 5' 2.008(1.58m) Wt 115 lb 1.3 oz (52.2kg) SpO2 100% BMI 21.04 kg/(m2).Physical Exam PerformedGENERAL: Alert, no distress, cooperativeLUNGS: Lungs clear to auscultation, Good diaphragmatic excursionCARDIAC: Normal S1 and S2; no rubs, murmurs, or gallopsABDOMEN: Abdomen soft, non-tender, BS normal, No masses or organomegalyDATA:Diagnostic tests reviewed for today's visit:Most recent labs and imaging results.Assessment/PlanPrincipal Problem: Hemorrhoids POA: Yes Assessment AND Plan: discharge to home, Oral pain medicationsResolved Problems: Rectal bleeding POA: Yes Assessment AND Plan: monitor for recurrent bleeding. Follow up HANDH asoutpatientSIGNATURE: Marge Schafer MD PATIENT NAME: Russell WrightosDATE: July 31, 2017 : 6:30 AM PAGER: platelet count on Platelets 221 150-400 k/uL Normal 07-31-2017 [facility] (04643) Comment: Performed By: #### HCT, HGB, PLTCT ####[facility] [address] [place] [address] nursing prog on 01-02-01 NURSING HNO ID: [id number]: Shaina wagoner (Rn) DOMINICK Redmondervice: (none)Author Type: Registered NurseType: Normal 07-31-2017 [place] PROG Nursing Progress NoteFiled: 07/31/2017 4:01 PMNote Text: Nursing Progress NotePatient Name: [facility] Russell WrightosMRN: [id number] Location: ([address]) [id number] Daily Note:sleepy but arousable-de nies any needs @ this time. Scantdrainage on bskc-mob-pqltrorwfy to order brkfst/ambulate in ajit ls/void qsprior discharge. IVFs maintained-discharge llsuqwv6141-Nqihspja patient that she was discharged and needed to ambulate inhalls/order brkfst and void-I know-im not gett ing up now IVFsmaintained. Remains non-compliant with requests by gzcdm7855-Txdx ordered by nu rse-IVFs discontinued with site discontinued due toinfiltration-some edema at site without reddne ss. Medicated forpain-waiting on mother for discharge. Continue to refuse ambulation-nodrainge from rectum. Remains in bed-warm compress to IV kfhu9160-Biuqyb 100cc concentrated urine, bladder scanned for 850mls. Up inhall ambulating-refusing apkafhuh-cewy-fxzk monitor. Mother to nmyir8518-Nwilkp 400m ls-no need to straight cath. Discharge instructionsreviewed with zelda lópez AND mother with adequate bkdhyddgb0004-Loq floor via w/c with transportThis note was completed by: Tayo Redmond RN NURSING HNO ID: [id number]: Grant rose (Rn) DOMINICK Malikervice: (none)Author Type: Registered Normal 07-31-2017 [facility] PITTS NurseType: Nursing Progress NoteFiled: 07/31/2017 7:03 AMNote Text: Nursing Progress NotePatient Hospita l Name: Russell WrightosMRN: [id number] Location: ([address]) [place] [id number] Daily Note: 2300 assumed care of p t at this time. Sleeping and lethargicbut arouses easily. Denies pain, nausea. IVF infusing.0 329 med with one percocet for rectal pain.given ice pack. Up to BSC.Voids 50ml. Bladder scan for 72ml. Denies abd pain. IVF infusing.0530 up to BSC. Unable to void. No active rectal bleed ing. Pt encouragedto ambulate.0645 Dr. Schafer at bedside. Update given. Orders in EPIC.This note was completed by: Dang vargas, RN hemoglobin on 07-31 Hemoglobin mass conc (Bld) 8.5 11.5-15.5 g/dL Low [facility] (53722) Comment: Performed By: #### HCT, HGB, PLTCT ####[facility] [address] [place] [address] 0 hematocrit on 07-31 Hematocrit (HCT) 26.3 36.0-46.0 % Low 07-31-2017 [facility] (66092) Comment: Performed By: #### HCT, HGB, PLTCT ####[place] [address] 0 fibrinogen on 07-31 Fibrinogen 190 200-400 mg/dL Low 07-31-2017 [facility] (92818) Comment: Performed By: #### FIBCT, PT , PTT ####[place] [address] 0 comp metabolic panel on 2017-07-31 Alanine aminotransferase (ALT) 6 7-38 U/L Low 07-31-2017 [facility] (71424) Comment: Performed By: #### CMP ####[address] [place] [address] Albumin 2.8 3.9-4.9 g/dL Low 07-31-2017 [facility] (74760) Comment: Performed By: #### CMP ####[address] [place] [address] Alkaline phosphatase (ALP) 31 32-117 U/L Low [facility] (35936) Comment: Performed By: #### CMP ####[address] [place] [address] Anion gap 9 9-18 mmol/L Normal 07-31-2017 [facility] (78118) Comment: Performed By: #### CMP ####M [facility] [address] [place] [address] Aspartate aminotransferase (AST) 9 13-35 U/L Low 07-31-2017 [facility] (85171) Comment: Performed By: #### CMP ####M [facility] [address] [place] [address] Bilirubin (total) 0.7 0.2-1.3 mg/dL Normal 07-31-2017 [facility] (99448) Comment: Performed By: #### CMP ####M [facility] [address] [place] [address] Calcium 7.2 8.5-10.2 mg/dL Low 07-31-2017 [facility] (84615) Comment: Performed By: #### CMP ####M [facility] [address] [place] [address] Chloride 111 97-105 mmol/L [facility]-31[facility] (28324[facility] Comment: Performed By: #### CMP ####M [facility] [address] [place] [address] CO2 23 22-30 mmol/L Normal 07-31-2017 [facility] (80498) Comment: Performed By: #### CMP ####M [facility] [address] [place] [address] Creatinine 0.68 0.58-0.96 mg/dL Normal 07-31-2017 [facility] (99922) Comment: Performed By: #### CMP ####M [facility] [address] [place] [address] eGFR (non-black) >60 mL/min/{1.73_m2} Normal 2017 [facility] (15663) Comment: Performed By: #### CMP ####M [facility] [address] [place] [address] Result Comment: eGFR (Estima joshua GFR) Units of measure: mL/min/1.73 meters squaredeGFR is derived from the reexpressed MDRD Study equation using the following parameters: serum creatinine, age, gender and race. The creatinine assay has been calibrated to be traceable to IDMS.An eGFR <60 mL/min/1.73m2 for >3 months is consistent with chronic kidney disease. Refer to KDOQI guidelines for clinical inte rpretation.In patients with unstable renal function, e.g. those with ac hossein kidney injury, the eGFR may not accurately reflect actual GFR. Glucose mass conc 80 74-99 mg/dL Normal 07-31-2017 [facility] (05879) Comment: Result Comment: The [place] Diabetes Association (ADA) provides guidance for cutoff values for fastin g glucose and random glucose. The ADA defines fasting as no caloric intake for at least 8 hours. Fasting plasma glucose results between 100 to 125 m g/dL indicate increased risk for diabetes (prediabetes).Fasting plasma glucose results greater than or equal to 126 mg/dL meet the criteria for diagnosis of diabetes. In the absence of unequivocal hyperglycemia, r esults should be confirmed by repeat testing. In a patient with classic sympt oms of hyperglycemia or hyperglycemic crisis, random plasma glucose result s greater than or equal to 200 mg/dL meet the criteria for diagnosis of di abetes.Reference: Standards of Medical Care in Diabetes 2016, [place] Diab etes Association. Diabetes Care. 2016.39(Suppl 1). Performed By: #### CMP ####M [facility] [address] [place] [address] Potassium molar conc 4.1 3.7-5.1 mmol/L Normal 8 [facility] (53263) Comment: Performed By: #### CMP ####[place] [address] Protein 4.2 6.3-8.0 g/dL Low 07-31-2017 [facility] (68180) Comment: Performed By: #### CMP ####M [facility] [address] [place], [place] [address] Sodium 143 136-144 mmol/L Normal 07-31-2017 [facility] (23416) Comment: Performed By: #### CMP ####M [facility] [address] [place], [place] [address] Urea nitrogen 14 7-21 mg/dL Normal 07-31-2017 [facility] (70466) Comment: Performed By: #### CMP ####M [facility] [address] [place], [place] [address] cbc and differential on 2017-07-31 Abs Baso <0.03 <0.11 Normal 07-31-2017 [facility] (04888) Comment: Performed By: #### CBCDIF ## ##[facility] [address] [place] [address] Abs Patillas 1.16 <0.87 k/uL High 07-31-2017 [facility] (15106) Comment: Performed By: #### CBCDIF ## ##[facility] [address] [place] [address] Abs Neut 10.10 1.45-7.50 k/uL High 07-31-2017 [facility] (48919) Comment: Performed By: #### CBCDIF ## ##[place] [address] Basophils/100 WBC Auto (Bld) 0.1 % Normal 0 07-31-2017 [facility] (74829) Comment: Performed By: #### CBCDIF ## ##[facility] [address] [place] [address] Eosinophils <0.03 <0.46 10*3/uL Normal 07-31-2017 [facility] (29096) Comment: Performed By: #### CBCDIF ## ##[facility] [address] [place] [address] Eosinophils/100 leukocytes 0.1 % Normal [facility] (50102) Comment: Performed By: #### CBCDIF ## ##[address] Erythrocyte distribution 12.5 11.5-15.0 % Normal 07-31 [facility] (63519) width Auto Ratio (RBC) Comment: Performed By: #### CBCDIF ## ##[facility] [address] [place], [place] [id number] Erythrocytes (RBC) 2.74 3.90-5.20 m/uL Low 07-31-2017 [facility] (72851) Comment: Performed By: #### CBCDIF ## ##[facility] [address] [place] [address] Hematocrit (HCT) 25.5 36.0-46.0 % Low 07-31-2017 [facility] (75998) Comment: Performed By: #### CBCDIF ## ##[facility] [address] [place], [place] [address] Hemoglobin mass conc (Bld) 8.1 11.5-15.5 g/dL Low [facility] (23984) Comment: Performed By: #### CBCDIF ## ##[facility] [address] [place], [place] [address] Lymphocytes 2.03 1.00-4.00 k/uL Normal 07-31-2017 [facility] (14531) Comment: Performed By: #### CBCDIF ## ##[facility] [address] [place] [address] Lymphocytes/100 leukocytes 15.3 % Normal [facility] (82358) Comment: Performed By: #### CBCDIF ## ##[facility] [address] [place], [place] [phone] MCH 29.6 26.0-34.0 pG Normal 07-31-2017 [place] [facility] (13250) Comment: Performed By: #### CBCDIF ## ##[facility] [address] [place], [place] [address] MCHC mass conc (RBC) 31.8 30.5-36.0 g/dL Normal 8 [facility] (19683) Comment: Performed By: #### CBCDIF ## ##[facility] [address] [place], [place] [address] MCV 93.1 80.0-100.0 fL Normal 07-31-2017 [place] [facility] (52560) Comment: Performed By: #### CBCDIF ## ##[facility] [address] [place], [place] [phone] Monocytes/100 leukocytes 8.7 % Normal 07-31 [facility] (55585) Comment: Performed By: #### CBCDIF ## ##[facility] [address] [place] [address] Neutrophils/100 WBC Auto (Bld) 75.8 % Normal 07-31-2017 [facility] (40905) Comment: Performed By: #### CBCDIF ## ##[facility] [address] [place], [place] [address] Platelet mean volume (PMV) 10.6 9.0-12.7 fL Normal [facility] (96320) Comment: Performed By: #### CBCDIF ## ##[facility] [address]7[address] Platelets 216 150-400 k/uL Normal 07-31-2017 [place] [facility] (05292) Comment: Performed By: #### CBCDIF ## ##[facility] [address]us[address]7[address] WBC (Leukocytes) 13.31 3.70-11.00 k/uL High 07-31-2017 [facility] (76993) Comment: Performed By: #### CBCDIF ## ##[facility] [address] [place] [address] case mgt inessence mock on 2017-07-31 CASE MGT HNO ID: [id number]: Lisa (Rn) Gurpreet al 07-31-2017 [facility] DOMINICK Lareservice: Case ManagementBoston Hospital for Women Type: Registered NurseType: Care Mgt ([id number]) Initial AssessmentFiled: 07/31/2017 11:47 AMNote Text:CARE MANAGEMENT: ASSESSMENT AND DISCHARGE PLANSERVICE DATE: 07/31/2017SERVICE TIME: 11:39 AMPRIMARY CARE PHYSICIAN:Chao Garcia MD (confirmed with patient) IQSFYIHVN STATUS: InpatientNeeds Prior to Discharge: Ready for DischargeMEDICAL:Patient/Silver Chaser Stated Goals:To have reduction in symptomsHealth Insurance: [facility] [employer] MEDICAIDUnited Health CareHealth Issues Impacting Discharge Plan: NoneLast Admission Date: noneIs this Within the Past 30 days? NoHealth Literacy:1. How often do you need to have someone help you when you readinstructions, pamphlets, or other written material from your doctor orpharmacy? Never - 12. How confident are you filling out medical forms by yourself? Extremely- 1If Patient scores > 3 on either question, the following interventions wereput into place:Patient did not score > 3FUNCTIONAL AND COGNITIVE/BEHAVIORALPRIOR TO ADMISSION:Baseline Mental Status: Alert AND Oriented, Person, Place , Time andSituationFunctional Status: IndependentDoes Patient Currently Receive Any Community Services or Home Care? NoneEquipment Prior to Admission: NoneHas the Patient Been in a Alf Facility in the Past 30 days? NoSOCIAL:Living Arrangement: HomeLives With: MotherFinancial Resources: UnemployedPrimary Contact: Extended Emergency Contact InformationPrimary Emergency Contact: KatheHannahAddress: [address] [place], [place] [address] [place] [address] Hqpdis Zrcrswte: MotherSupportive: YesOther Important Patient Contacts: NoneCaregiver Assessment:Caregiver is ready, willing and able to meet the patient's needs asrecommended by the inter-professional team? No Caregiver NeededPatient's transition needs and plan for meeting these needs: naDoes the patient have an acute stroke diagnosis, or has the patient had astroke during this admission? NoMedication Adherence:I am convinced of the importance of my prescription medication: Agreecompletely - 0I worry that my prescription medication will do more harm than good to meDisagree completely - 0I feel financially burdened by my wga-uv-wjxers expenses for myprescription medication: Disagree completely - 0Patient is categorized as low risk < 2Are you interested in bedside delivery of your medications? NoFood Concerns:In the Last Month, Have You had Trouble Getting Food? No trouble gettingfoodDuring the Last Month, Have You Worried Whether Your Food Would Run OutBefore You Had Enough Money to Buy More? NoIs the Patient Psychosocially Complex? NoASSESSMENT AND PLAN:Medical Needs: NonePsychosocial Needs: NoneFREEDOM OF CHOICE EXPLAINED:N/APOTENTIAL TRANSITION PLANSNo Services IndicatedMet with patient at bedside, introduced self/role of TCC. Patientadmitted to [facility] s/p hemorrhoidectomy, patient received 1 unitPRBCs. Patient lives with her mother and her two children, she isindependent with ADLs and IADLs. No services anticipated at discharge.CM will remain available for discharge planning needs.SIGNATURE: Lisa Lares RN PATIENT NAME: Russell WrightosDATE: July 31, 2017 : 11:39 AM PAGER/CONTACT #: [phone] case managem on 201 01-02-01 CASE MANAGEM HNO ID: [id number]: Lisa Butler 07-31-2017 [facility] (Rn) DOMINICK Lareservice: Case ([id number]) ManagementAuthor Type: Registered NurseType: Care Mgt Progress NoteFiled: 07/31/2017 1:59 PMNote Text:CARE MANAGEMENT DISCHARGE NOTESERVICE DATE: 07/31/2017SERVICE TIME: 1:48 PM LOS: 1 dayAdmission Date: 07/30/2017DISCHARGE ARRANGEMENT (list agency and phone number)HomeProvider: na Phone: naCAREGIVER ASSESSMENT:Caregiver is ready, willing and able to meet the patient's needs asrecommended by the inter-professional team? No Caregiver NeededPatient's transition needs and plan for meeting these needs: naDoes the patient have an acute stroke diagnosis, or has the patient had astroke during this admission? NoHANDOFF COMMUNICATION:Primary Care Physician: JLGUUAZIWYZMBQ ARRANGEMENTS:Car Family will transportADDITIONAL CONTACT RESOURCES: naNeeds Prior to Discharge: Ready for DischargeDischarge order written for today, patient discharged home with noservices. Patient agrees with discharge plan. Family will transport.SIGNATURE: Lisa Lares RN PATIENT NAME: Russell WrightosDATE: July 31, 2017 : 1:48 PM PAGER/CONTACT #: [phone] aptt on 2017-07-31 aPTT 26.0 23.0-32.4 sec Normal 07-31-2017 [facility] (56843) Comment: Result Comment: Unfractionat ed Heparin Therapeutic Ranges:Standard Heparin Nomogram: 53 to 78 seconds ( anti-Xa level of 0.3 to 0.7 U/ml)Low Dose/ACS Nomogram: 49 to 67 seconds ( anti-Xa level of 0.2 to 0.5 U/ml)Stroke Treatment Nomogram: 49 to 67 seconds (anti-Xa level of 0.2 to 0.5 U/ml)Note: The APTT therapeutic range h as been determined for the current lot of laboratory APTT reagent in u se throughout the [facility]. Performed By: #### FIBCT, PT , PTT ####[facility] [address] [place] [address] xr chest 1v frontal port on 2017-07-30 XR CHEST 1V * * *Final Report* * *DATE OF EXAM: No rmal 07-30-2017 [place] FRONTAL PORT Jul 30 2017 8:43PM MDX 5376 - XR Hospital CHEST 1V FRONTAL PORT / [id number] REASON: Fluid overload * * * * Physician Interpretation * * * * EXAMINATION: CHEST RADIOGRAPH (PORTABLE SINGLE VIEW AP)Exam Date/Time: 07/30/2017 8:43 PMIndication: Fluid overloadMQ: XCP_4Comparison: NoneRESULT:See impression.IMPRESSION:Lines, tubes, and devices: None.Lungs and pleura: No edema, infiltrates, pulmonary nodules or pleural effusions.Cardiomediastinal silhouette: Within normal limitsOther:Receiving Associate Store: PSCShaylee Transcribe Date/Time: Jul 30 2017 8:47PDictated by : SHEREE MAHARAJ MDThis examination was interpreted and the report reviewed and electronically signed by: SHEREE MAHARAJ MD on Jul 30 2017 8:48PM [id number] type and screen on 2017-07-30 ABO/RH(D) O POSITIVE Normal 07-30-2017 [facility] ospital ([id number]) Comment: Performed By: #### TSCR #### [place] [id number] Antibody Screen NEG Normal 07-30-2017 [facility] ([id number]) Comment: Performed By: #### TSCR #### [facility] [address] [place], [place] [address] surgical pathology on 2017-07-30 [facility]: [id number] Physician: Normal 07-30-2017 [place] [facility] Keya BRYAN MD EDDIE Murcia ([id number]) DIAGNOSIS1. Right posterior, hemorrhoid, hemorrhoidectomy (A ) - Histologic featuresconsistent with hemo rrhoids.2. Left lateral, hemorrhoid, hemorrhoidectomy (B) - Histologic featuresconsistent with hemorrhoids.3. Righ t anterior, hemorrhoid, hemorrhoidectomy (C) - Histologic featuresconsis tent with hemorrhoids.KL/JDC/[id number] Whitmore M.D.(Electronic Signature) SPE CI MEN SUBMITTEDA: RIGHT POSTERIOR HEMORRHO ID B: LEFT LATERAL HEMORRHOID C: RIGHT ANTERIOR HEMORRHOID CLINICAL DATAHEMORRHOIDECTOMY EXTERNAL SINGLE COLUMN GROUP, LMP: HCG NEG.EXAMINATION UND ER ANESTHESIA, HEMORRHOIDECTOMY GROSS DESCRIPTIONA. Received in formalin labeled right posterior hemorrhoid is a bolivar-pinkmucosal and skin covered appearing segme nt of tissue measuring 3.5 x 2.0 x1.2 cm. The specimen is sectioned. Silver Chaser sections are submitted informalin in one cassette.B. Received in formalin labeled left lateral hemorrhoid are multipletan-pink mucosal covered segments of tissue aggregating to 2.4 x 2.0 x 0.7cm. The specimens are sectioned and totally submitted in formalin in onecassette.C. Received in formalin labeled right anterior hemorrhoid is an irregularpink-vu mucosal covered segment of tissue me asuring 1.9 x 1.2 x 0.4 cm.The specimen is serially sectioned and totally submitted in formalin in o necassette. Gross examination performed at [facility], [address], [place] [address]LPM/shauna 07/30/2017Patient ID #: [id number] of Report: 08/01/2017Date o f Procedure: 07/30/2017Date of Receipt: Submitted by: MARGE SCHAFER MDLocation: 3 VDiagnostic interpretation performed at [facility], [address] [facility] [address]. Comment: Performed By: #### PATHS ### #[facility] [address] [place], [place] [id number] pt ed on 2017-07-30 PT ED HNO ID: [id number]: Africa Jewell) Dom arevalo 07-30-2017 [facility] DOMINICK Liaoervice: (none)Author Type: ([id number]) Registered NurseType: Patient EducationFiled: 07/30/2017 8:09 AMNote Text:PRE OP LEARNING ASSESSMENTPROCEDURE/SURGERY: SURGERY: HemorrhoidectomyREADINESS TO LEARNCOGNITIVE ABILITY: Alert and orientedMOTIVATION TO LEARN: InterestedFAMILY SUPPORT: High - Very involved in pt carePATIENT LEARNS BEST BY: Verbal InstructionFACTORS AFFECTING LEARNING: Other AnxietyPHYSICAL LIMITATIONS AFFECTING LEARNING: PainElectronically Signed By: Africa Liao RN [facility] progress on 2017-07 PROGRESS HNO ID: [id number]: Samantha murcia 07-30-2017 [facility] ChukwuaniService: Hospital ([id number]) MedicineAuthor Type: PhysicianType: Progress NotesFiled: 07/31/2017 5:45 AMNote Text:INPATIENT PROGRESS NOTESERVICE DATE: 07/30/2017SERVICE TIME: 6.00PMPRIMARY SERVICE:Was asked to access a patient who is s/p hemorrhoidectomy with posthemorrhoidectomy bleed.Noted patient lost about 900mls of blood (as per the surgeons note 400 now- 500 including first case ) and She received about 4liters of IVF.( asper surgeons note - 1000 in OR - 4000 total for day).At the time of exam, her SBP was in the 70's , she wasconscious,alert,answering questions.STAT labs -CBC,CMP,HCG,CXR was ordered.Blood transfusion orders were placed.She was started on IV normal saline bolus and later IV iron with vit C.Repeat cbc was 8 so she received one unit of PRBC only.SBP improved to 80's .the rest of the vital was stable.SIGNATURE: Samantha Diego MD PATIENT NAME: Russell WrightosDATE: July 30, 2017 : 6:28 PM PAGER: [phone] operative no on 201 01-02-28 OPERATIVE HNO ID: [id number]: Marge grimes 07-30-2017 [facility]Service: General SurgeryAuthor Type: Hospital PhysicianType: Operative ReportFiled: 07/31/2017 ([id number]) 6:19 AMNote Text:[facility]- Operative ReportRUSSELL LIZ MDOB: 1990 AGE: 26 SEX: FMRN: [id number] ACCTNUM: [id number] SVC: GENS LOCATION: [id number] PHYSICIAN: MARGE GARCIAANDATE OF PROCEDURE: 07/30/2017SURGEON: Marge Schafer M.D.SUPERVISOR PIPELINES: NONEANESTHESIA: General endotracheal.PREOPERATIVE DIAGNOSIS(ES): Symptomatic mixed hemorrhoids.POSTOPERATIVE DIAGNOSIS(ES): Symptomatic mixed hemorrhoids in all 3quadrants.NAME OF OPERATION: Examination under anesthesia and 3-quadranthemorrhoidectomy.INDICATIONS:ESTIMATED BLOOD LOSS: 75 mL.COMPLICATIONS: None.SPECIMENS: Right anterior, left lateral, and right posterior hemorrhoidal complex, all sent separately.DRAINS: None.URINE OUTPUT: No catheter.LOG ID NUMBER: [id number].START TIME: 10:29.END TIME: 10:52.ASA: 2.IV FLUIDS: 900 mL.DISPOSITION: The patient taken to PACU in stable condition.FINDINGS: As described above.PROCEDURE: The patient was brought to the operative suite. Sign-in wasperformed verifying the patient, site, procedure, position, criticalnursing information, VTE and antibiotic prophylaxis. The patient hadSCDs placed for VTE prophylaxis. She received 600 mg of clindamycin.Following induction of general anesthetic, the patient was transferredfrom the supine to the prone yolanda-knife position with care being taken toavoid pressure points. The buttock and perianal area were prepped anddraped in usual fashion. Time-out was performed verifying patient, site,procedure, position. Visual external inspection revealed the largestcomplex on the right posterior. The left lateral was a 2nd large complexwith 2 superficial external thrombosed hemorrhoidal complexes that wereresolving and a smaller right anterior complex. Bidigital exam revealedno sphincter defects. There was an intact rectovaginal septum and noabnormalities other than the palpable hemorrhoidal complexes. Bivalveanoscope demonstrated no abnormalities other than hemorrhoidal complexes. At this point, operative hemorrhoidectomy was performed using 2 straighthemostats to limit the internal anal and the anodermal margins. A smallPennington clamp was used to grasp the mid internal hemorrhoidal complex. A wedge-shaped incision was performed on the lateral anoderm andhemorrhoidal complex dissected off the sphincter complex from lateral tothe anal verge. Following this, electrocautery was used to continuedissection of the hemorrhoidal complex with care being taken to avoidinjury to the sphincter complex. Once this was performed, thehemorrhoidal complex was excised and sent separately. A 2-0 nzmpebxhcuzfo-kr-eyvir suture was placed around the internal anal canal abovethe level of the excised hemorrhoidal tissue and then a running lockingsuture transitioned to a simple suture was used to close the mucosaldefect. This was repeated for all 3 complexes. There was no sign ofbleeding noted afterwards. A 0.5% lidocaine, 0.25% Marcaine was injectedinto the perianal skin. Dibucaine impregnated Gelfoam was placed in theanal canal. Dressing was applied. The patient was turned to the supineposition, extubated, brought to recovery in stable condition.Marge Schafer M.D.General SurgeryRG:[id number]: 07/30/2017 11:02:22T: 07/30/2017 21:48:07Job #: [id number] OPERATIVE HNO ID: [id number]: Marge grimes 07-30-2017 [facility] SurgeryAuthor Type: Hospital PhysicianType: Operative ReportFiled: 07/31/2017 ([id number]) 6:19 AMNote Text:[facility]- Operative ReportRUSSELL LIZ MDOB: 1990 AGE: 26 SEX: FMRN: [id number] ACCTNUM: [id number] SVC: GENS LOCATION: [id number] PHYSICIAN: MARGE GARCIAANDATE OF PROCEDURE: 07/30/2017SURGEON: Marge Schafer M.D.SUPERVISOR PIPELINES: NONEANESTHESIA:PREOPERATIVE DIAGNOSIS(ES): Syncope and hypotension post hemorrhoidectomywith assumed bleed.POSTOPERATIVE DIAGNOSIS(ES): Significant blood in the rectal vault withno signs of active bleeding from the 3 hemorrhoidal complexes.NAME OF OPERATION: Examination under anesthesia, evacuation of clot, andplacement of 1 additional suture.INDICATIONS: Briefly, Russell Liz is a 26-year-old female, whoearlier today, approximately 3 hours, underwent a 3-quadrant operativehemorrhoidectomy. Estimated blood loss at the initial surgery was 100 cc. The patient was doing well postoperatively, but while attempting to getup in the bed, approximately 2.5 hours after the surgical procedure,became pale and vagal. She had amount of clot passed in recovery ofmaybe 50 cc including some watery blood. It was elected to bolus her andbring her back for repeat examination under anesthesia. This was deemedan emergency, the patient brought right back. I discussed this findingwith the mother and the plan for procedure, which she agreed to, but noconsent was signed.START TIME: 2:26.END TIME: 2:36.PROCEDURE: She was brought back to the Operative Suite. Sign-in wasperformed verifying patient, site, procedure, and position. Followinginduction of LMA anesthesia, the patient was placed in the modifiedlithotomy position. The perineal area was prepped with Betadine.Anoscopy was performed, which generated a significant amount of blood andclot draining. At this point, the area was suctioned out and viewing ofthe 3 hemorrhoidal complexes, demonstrated no significant active bleedingfrom any 3 sites. The left lateral site did have 1 area of raw mucosa,but again no active bleeding. A 3-0 chromic ypjjxe-hk-iuyox suture wasplaced around that site to close the mucosa. Following this, all 3 areaswere examined multiple times for 10 minutes with no signs of bleeding.Dibucaine impregnated Gel-Foam was again placed in the anal canal.Dressings applied. Mesh pants were applied. The patient was taken outof lithotomy position with plans for removal of the LMA airway,transferred to recovery, and admit the patient for observation overnight. We will plan for CBC now, CBC in the morning, and will have hospitalistto assist in management of this patient.Marge Schafer M.D.General SurgeryRG:[id number]: 07/30/2017 14:51:23T: 07/31/2017 00:14:43Job #: [id number] nursing prog on 201 01-02-28 NURSING HNO ID: [id number]: Cass watkins (Rn) DOMINICK Pintoervice: NursingAuthor Type: Registered Normal 07-30-2017 [facility] PROG NurseType: Nursing Progress NoteFiled: 07/30/2017 11:21 PMNote Text: Nursing Progress NotePatient Hospita l Name: Russell WrightosMRN: [id number] Location: ([address]) [place] [address]/[id number] Daily Note:1700- pt admitted from PACU, pt arrived in lethargic condition butresponds appropriately. Pt with low BP fluids running, HOSP paged forco-management. Pt remains NPO, Bed alarm on for safety.1730- Pt remains with low BP, Md paged again for co yytyzfeudr8826- Md notified of continued low BP, STAT CBC o rdered along with otherlabs, Check orders bolus administered, IV IRON ordered and one unit ofblood consent signed by Mom and Patient.1945- Bolus complete, IV Iron transfusing SEE MAR, spoke w ith Pt admittingsurgeon, Wants 1 unit of PRBC, and repeat labs in the AM, If pt becomesmore alert okay to advance diets to clear ohzglfx6429- 1 unit of PRBC started no reactions tpabn1998- PRBC In fusion complete, no reactions noted BP more stableThis note was completed by: Leanna Pinto RN NURSING HNO ID: [id number]: Yamilex Michaud (Rn) DOMINICK Sabaervice: (none)Author Type: Registered Normal 07-30-2017 [facility] PROG NurseType: Nursing Progress NoteFiled: 07/30/2017 4:22 PMNote Text:1520 DR Schafer at bedside Hospital cancel order for CMP only ne ed STAT [id number] Dr Irvin and Dr Schafer made aware of CBC (44777) results, no neworders at thi s time, recheck in am as [id number] Dr Crespo aware of blood pressures, no new orders will continueto monitor NURSING HNO ID: [id number]: Cass joshi (Rn) Gama, RNService: (none)Author Type: Registered NurseType: Normal 07-30-2017 [facility] Nursing Progress NoteFiled: 07/30/2017 2:37 PMNote Text: 1305 Assisted pt to side of bed to sit Hospital before standing up. 1320 Inp rocess of standing pt up with 2 assist and pt lost consciousness (99534) forapproximately 5 minutes w hile lifting her back into bed.Daigwnnohqdlri955- 120ml of blood from rectum with a few clots on f rakesh and in bed. Iceperi pad applied to area. Anesthesia called to bedside Dr Crespo wasin unit and came immediately with several nurses. 1332 Simultaneously Os 3L applied VS obtained 81 --14 --81/49--98% pt arousal. Dr James called andcame to bedside Assess situation and pt will be returning to OR. Forrest went and spoke with family . Pt continuously monitored . See sheetwith posted VS and Strip on chart. IV flds ran wide open and infusing wellinto rt hand 20 G IV site.1345 Pt sleeping easily aroused. No active bleeding noted. 82-Waiting for OR to be read y. 1400 VS remain stable , running in 82/36-00-47--100% ON [id number] 85-14-62-85/50--100% 3L O2 Sleeping easily aroused.1410 take n to OR. NURSING HNO ID: [id number]: Cass joshi (Rn) Gama, RNService: (none)Author Type: Registered NurseType: Normal 07-30-2017 [facility] Nursing Progress NoteFiled: 07/30/2017 2:36 PMNote Text:1305 Assisted pt to side of bed to sit Hospital before standing up. 1320 Inp rocess of standing pt up with 2 assist and pt lost consciousness (20706) forapproximately 5 minutes w hile lifting her back into bed.Hmlbzdnufpubcd231- 120ml of blood from rectum with a few clots on f rakesh and in bed. Iceperi pad applied to area. Anesthesia called to bedside Dr Disha orozco unit and came immediately with several nurses. 1332 Simultaneously Os 3L applied VS obtained 81 --14 --81/49--98% pt arousal. Dr James called andcame to bedside Assess situation and pt will be returning to OR. Forrest went and spoke with family . Pt continuously monitored . See sheetwith posted VS and Strip on chart. IV flds ran wide open and infusing wellinto rt hand 20 G IV site.1345 Pt sleeping easily aroused. No active bleeding noted. 82-Waiting for OR to be read y. 1400 VS remain stable , running in 82/77-52-14--100% ON [id number] 85-14-62-85/50--100% 3L O2 Sleeping easily aroused.1410 take n to OR. NURSING HNO ID: [id number]: Cass joshi (Rn) DOMINICK Malloyervice: (none)Author Type: Registered NurseType: Normal 07-30-2017 [facility] Nursing Progress NoteFiled: 07/30/2017 2:15 PMNote Text:1305 Assisted pt to side of bed to sit Hospital before standing up. 1320 Inp rocess of standing pt up with 2 assist and pt lost consciousness (82213) forapproximately 5 minutes w zohra lifting her back into bed.Azmzdrsajjztyj166- 120ml of blood from rectum with a few clots on f rakesh and in bed. Iceperi pad applied to area. Anesthesia called to bedside Dr Disha orozco unit and came immediately with several nurses. 1332 Simultaneously Os 3L applied VS obtained 81 --14 --81/49--98% pt arousal. Dr James called andnoahe to bedside Assess situation and pt will be returning to OR. Forrest went and spoke with family . Pt continuously monitored . See sheetwith posted VS and Strip on chart. IV flds ran wide open and infusing wellinto rt hand 20 G IV site.1345 Pt sleeping easily aroused. No active bleeding noted. 82-Waiting for OR to be read y. 1400 VS remain stable , running in 82/40-26-57--100% ON [id number] 85-14-62-85/50--100% 3L O2 Sleeping easily aroused.1410 take n to OR. NURSING HNO ID: [id number] Normal 07-30-2017 [facility] Author: Pop (Rn) [facility] Service: Nursing (00 000) Author Type: Registered Nurse Type: Nursing Progress Note Filed: 07/30/2017 11:40 AM Note Text: RECTAL DRESSING D/I NO BLEEDING NOTED NURSING HNO ID: [id number]: Jenny olsen (Rn) DOMINICK Liaoervice: (none)Author Type: Registered NurseType: Normal 07-30-2017 [place] [facility] Nursing Progress NoteFiled: 07/30/2017 8:09 AMNote Text: Nursing Progress NotePatient Name: [facility] HospitalosMRN: [id number] Location: [facility] ([address]) Surgery 0[address] Dr. Crespo at bedside made aware of fam rasheed history of MH.This note was completed by: Africa Liao RN history physical on 2017-07-30 HISTORY HNO ID: [id number]: Marge Vázquez al 07-30-2017 [place] PHYSICAL GuttmanService: General SurgeryAuthor Type: Hospital PhysicianType: HANDPFiled: 07/30/2017 8:50 ([id number]) AMNote Text:HISTORY AND PHYSICAL?[facility]ell [facility]1990??REFERRING PHYSICIAN: Self?CHIEF COMPLAINT: Hemorrhoids?HPI: The patient is a 26 year old female with a complaint of symptomatichemorrhoids x 6 years, since her first . The patient states thather hemorrhoids worsened significantly with her second . Shestates her hemorrhoids do not typically bleed, but are extremely tenderwith bowel movements, wiping and sitting. She states over the years shehas utilized numerous topical treatments such as preparation H but theseare no longer giving her much relief. She has done sitz baths and notesregular bowel movements, no straining. Denies changes in bowel habits.The patient notes her symptoms occur every day and are interfering withher everyday life, she is interested in definitive treatment for thehemorrhoids.?The patient states she is in good health otherwise. She denies cardiac orrespiratory issues. She notes she had blood pressure issues with hersecond that resolved after delivery. She denies problems withanesthesia in the past.?? PAST?MEDICAL?HISTORYPAST MEDICAL HISTORYDiagnosis Date- Abnormal Pap smear of cervix 12/2015? LGSIL pap- Allergic rhinitis, cause unspecified ?? Allergic rhinitis- Asthma ?- Depression with anxiety 08/30/2016- Eczema ?- fracture age 10? left arm , playground accident- Genital herpes ?- Headache(784.0) ?- PMH - PAST MEDICAL HISTORY OF ? normal color vision- Varicella without mention of complication ?? age 11 months and age 3 years per mother?? PAST?SURGICAL?HISTORYPAST SURGICAL HISTORYProcedure Laterality Date- DELIVERY ONLY ? ?? , low transverse- DELIVERY ONLY ? 10/29/2016- REMOVE TONSILS/ADENOIDS,<12 Y/O ? CURRENT?MEDICATIONS ?Current Outpatient Prescriptions:methylPREDNISolone (MEDROL DOSE-PACK) 4 mg Dose-Pack Take medications asdirected on packaging. Take with food.triamcinolone acetonide (KENALOG) 0.1 % cream Apply 1 application toaffected area three times daily. Apply sparingly to area for rash/itching.sertraline (ZOLOFT) 100 mg tablet Take 1 tablet by mouth once daily.hydrOXYzine pamoate (VISTARIL) 25 mg capsule Take 1 capsule by mouth threetimes daily as needed.methylPREDNISolone (MEDROL DOSE-PACK) 4 mg Dose-Pack As Instructed perpackagehydrocortisone 1 % cream Apply 1 application to affected area twice daily.levonorgestrel (MIRENA) 20 mcg/24 hr (5 years) IUD Inserted in officecetirizine (ZYRTEC) 10 mg tablet Take 1 tablet by mouth once daily.ACYCLOVIR ORAL Take by mouth as needed.albuterol HFA (PROVENTIL HFA, VENTOLIN HFA) 90 mcg/actuation inhalerInhale 2 Puffs as instructed every 4 hours as needed.?No current facility-administered medications for this visit.?ALLERGIES: Dust Mites; Penicillins; Sulfa (Sulfonamide Antibiotics)?PERSONAL HISTORY: SOCIAL?HISTORY Social History Marital status: Single Spouse name: Years of education: 12 Number of children: 2?Occupational HistoryOccupation Employer [employer]?Social History Main Topics Smoking status: Current Every Day Smoker Packs/day: 0.25 Years: 3.00 Last attempt to quit: 10/29/2010 Smokeless status: Never Used Comment: 3 cigarettes a day Alcohol use: Yes Comment: Occasionally Drug use: No Sexual activity: Yes Partners with: Male control/protection: IUD??FAMILY HISTORY: FAMILY?HISTORYFAMILY HISTORYProblem Relation Age of Onset- multiple sclerosis [OTHER] Mother ?- Hypertension Maternal Grandmother ?? ? Severe- Breast Cancer Maternal Aunt ?? ? great aunt- Cancer Paternal Aunt ?? ? skin cancer- chron's disease [OTHER] Paternal Aunt ?? ? Maternal Aunt??REVIEW OF SYMPTOMS: The review of systems data was entered by the nurse and reviewed by me?Nursing Notes:Alan Lawrence LPN 07/14/2017 9:08 AM SignedREVIEW OF SYSTEMS: General: The patient denies fatigue, denies weight loss, deniesweight gain, denies feeling hot, and denies feelings of cold. Eyes: The patient denies glaucoma, denies eye injury/surgery, wearsglasses or contacts. Ear/Nose/Throat: The patient NOTES allergies, denies hayfever,denies ear infections, and denies bloody noses. Cardiovascular: The patient denies chest pain, denies heart disease,denies high blood pressure,denies cardiac stent, denies prior heartattack, denies irregular heart beat, denies high cholesterol, denies poorcirculation, denies heart failure, other cardiac issues, deniesclaudication, denies cold feet, denies peripheral arterial stent. Respiratory: The patient denies tuberculosis, denies pneumonia,denies frequent cough, denies pulmonary embolism, denies shortness ofbreath, and denies coughing up blood. Gastrointestinal: The patient denies difficulty swallowing, deniesacid reflux, denies ulcers, denies vomiting, denies jaundice/hepatitis,denies gallbladder problems, denies black or tarry stools, NOTEShemorrhoids, denies bleeding from rectum, denies diverticulitis, deniesconstipation, denies diarrhea, denies loss of stool control, and denieshernias. Kidney/Bladder: The patient denies kidney stones, NOTES urineinfections, and denies bloody urine. Skin: The patient denies a history of skin cancer, deniesbleeding/changing moles, and denies a history of skin rash. Neurologic: The patient denies a history of epilepsy/convulsions,denies headaches, denies head/spinal injuries, and denies stroke/TIA. Psychiatric: The patient denies psychiatric medications, deniesdepression, and denies voices, denies substance abuse. Endocrine: The patient denies thyroid disorders, denies diabetes,and denies hormonal problems. Hematologic: The patient denies a history of bruising, deniesbleeding, and denies anemia, denies blood clots. Infections: The patient denies a history of measles and mumps,denies rheumatic fever, and NOTES sexually transmitted diseases. Musculoskeletal: The patient NOTES back pain/injury, denies backproblems, denies sciatica, denies knee/foot trouble, denies arthritis, ordenies gout.??When was patient's last Mammogram screening? N/a? Last Colonoscopy: n/a?Alan Askew PA-C???PHYSICAL EXAMINATION:?General: The patient is 26 year old female, well nourished, well hydratedin no acute distress. The patient is oriented to time, place, and person.?VITALS: Blood pressure 120/58, pulse 80, weight 52.2 kg (115 lb), notcurrently .?HEENT: Normal cephalic, ataumatic, pupils are equally round, sclera areanicteric, mucous membranes are moist, oropharynx is clear. Neck has nomasses, asymmetry or lymphadenopathy.?Respiratory: Clear to auscultation and percussion. Normal respiratoryexcursion and pattern.?Cardiac: Examination is regular rate and rhythm.?Abdominal exam: Soft, nontender, with no palpable masses. Nohepatosplenomegaly. No palpable hernias.?Rectal exam: +non-thrombosed external hemorrhoidal bundles, tender topalpation. No anal fissure is noted?Extremities: no clubbing, cyanosis or edema. No adenopathy.?Other:??LABORATORY VALUES: As Noted?RADIOLOGIC STUDIES: As Noted?AssessmentIMPRESSION: symptomatic external hemorrhoids?PLAN: Reviewed conservative measures including stool softeners, fiber,continuing the sitz baths, adding Anusol cream. The patient would like toproceed with a formal hemorrhoidectomy. Consent: The proposed procedure,risks, benefits, and alternatives were discussed with the patient indetail. We discussed the expected post-operative course, includingexpectations for post-operative discomfort. All the patient's questionswere answered, and the patient voiced understanding. The patient desiresto proceed with surgery.?The patient in instructed to do a light bowel prep with miralax ormagnesium citrate in addition to clear liquid diet for 1 day prior to thesurgery?Diagnoses: (K64.9) Hemorrhoids, unspecified hemorrhoid type (primaryencounter diagnosis)?A letter was sent to Dr. Chao Garcia MD indicating the above findingfor this patient.??Return to Clinic: The patient is instructed to follow-up with me 2 weekspost-operatively?I spent 25 minutes in the visit, with more than 50% of the ahaiwawcm-mo-bjjp time of the visit in counseling / coordination of care.?? Mira Askew PA-C hcg, quantitative bl on 2017-07-30 HCG, Quantitative Bl <0.1 <5.0 Normal 8 [facility] ([id number]) Comment: Result Comment: NEGATIVE Performed By: #### HCGQT ### #[facility] [id number] [phone] consult on CONSULT HNO ID: [id number]: Chidi Normal 07-30-2017 [facility] AkulaService: [facility] MedicineAuthor ([id number]) Type: PhysicianType: ConsultsFiled: 07/30/2017 3:33 PMNote Text:[facility] MEDICINEHISTORY AND PHYSICAL EXAMSERVICE DATE: 07/30/2017SERVICE TIME: 3:22 PMPrimary Care Physician: Chao Garcia MDNIGHT AND WEEKEND COVERAGE:Nights: Please contact pager [phone].SrluhkmahtVRE40 year old female with H/O symptomatic hemorrhoids x 6 years, since herfirst , worsened significantly with her second , do nottypically bleed, but extremely tender with bowel movements, wiping andsitting. ?She had symptoms almost every day, failed out pt therapy sounderwent elective hemorrhoidectomy by today. Pt did have morethan expected bleeding during the procedure so plan to admit overnight forobservation and consulted hospitalist service for close monitoring. Seenthe patient in the recovery area, Pt is currently lethargic, on ventimask. BP is in 90s/40s, she is getting 5 th lt of fluids. Spoke withanesthesiologist in the recovery room. Pt did have baseline H/H 10.9 in08/16.??PAST MEDICAL HISTORYDiagnosis Date- Abnormal Pap smear of cervix 12/2015 LGSIL pap- Allergic rhinitis, cause unspecified Allergic rhinitis- Asthma- Depression with anxiety 08/30/2016- Eczema- Family history of malignant hyperthermia MATERNAL GRANDMOTHER- fracture age 10 left arm , playground accident- Genital herpes- Headache(784.0)- PMH - PAST MEDICAL HISTORY OF normal color vision- Varicella without mention of complication age 12 months and age 3 years per motherPAST SURGICAL HISTORYProcedure Laterality Date- DELIVERY ONLY , low transverse- DELIVERY ONLY 10/29/2016- HEMORRHOID SURGERY HX 07/30/2017 Fall- INSERTION OF IUD- REMOVE TONSILS/ADENOIDS,<12 Y/OFAMILY HISTORYProblem Relation Age of Onset- multiple sclerosis [OTHER] Mother- Hypertension Maternal Grandmother Severe- Breast Cancer Maternal Aunt great aunt- Cancer Paternal Aunt skin cancer- chron's disease [OTHER] Paternal Aunt Maternal AuntSocial HistorySubstance Use Topics- Smoking status: Current Every Day Smoker Packs/day: 0.25 Years: 3.00 Last attempt to quit: 10/29/2010- Smokeless tobacco: Never Used Comment: 3 cigarettes a day- Alcohol use Yes Comment: OccasionallyMEDICATIONS: ReviewedALLERGIESAllergen Reactions- Dust Mites- Penicillins rash, hives- Sulfa (Sulfonamide * HivesReview of SystemsReview of Systems pt is still drowsy, not able to provide anythingObjectivePhysical Exam PerformedBP 95/48 Pulse 58 Temp (Src) 97.5 (Temporal Artery) Resp 16 Ht 5'2.008 (1.58m) Wt 115 lb 1.3 oz (52.2kg) SpO2 96% BMI 21.04kg/(m2).Physical ExamLines, Drains, and Airways Line Peripheral 07/30/17 0817 Short Right Hand 20 Gauge less than 1 dayReviewed lines, drains, airways. Will discuss with nurse and discontinueat discharge 07/30/18117BP: 85/51 82/52 94/50 (!) 95/48Pulse: 73 69 77 (!) 58Resp: 16 16 16 16Temp: 36.4 ?C (97.5 ?F)TempSrc: Temporal ArterySpO2: 98% 98% 96% 96%Weight:Height:PHYSICAL EXAMINATIONGeneral: Lethargic, no distress, non cooperative, on venti mask.Heart: Regular, normal S1 and S2, no murmurs, rubs, or gallopsLungs: Clear to auscultation bilaterallyAbdomen: BenignExtremities: Feet/ankles without edema, posterior tibial pulses full andsymmetricalDATA:Diagnostic tests reviewed for today's visit:Most recent labs and imaging results. CBC, Coags, BMP, Mg, PhosAssessment/PlanPrincipal Problem: Hemorrhoids Assessment AND Plan:S/p hemorrhoidectomy POD 0In the recovery room, still lethargic, hasn't recovered completely fromthe effect of anaesthesiaBP is borderline in 90s, on venti maskCurrently getting 5th lt of fluids, clear lungsContinue IVF at 100/hr, give fluid blouses as neededMaintain MAP over 100Watch for the fluid overload, respiratory status, I/ODrawing labs now, f/u labs, transfuse PRBC if neededIf consistent low BP with poor response to fluids, consider to transfer toUDisposition: HomePlan of care discussed with: RN and Other anasthetistSIGNATURE: Chidi Millard MD PATIENT NAME: Russell LizDATE: July 30, 2017 : 3:22 PM PAGER/CONTACT #: [phone] cbc on 2017-07-30 Erythrocyte distribution 12.1 11.5-15.0 % Normal 07-30 [facility] ([id number]) width Auto Ratio (RBC) Comment: Performed By: #### CBC ####M [facility] [address] [place], [place] [phone] Erythrocytes (RBC) 2.71 3.90-5.20 m/uL Low 07-30-2017 [facility] ([id number]) Comment: Performed By: #### CBC ####M [facility] [address] [place], [place] [address] Hematocrit (HCT) 25.1 36.0-46.0 % Low 07-30-2017 [facility] ([id number]) Comment: Performed By: #### CBC ####M [facility] [address] [place] [phone] Hemoglobin mass conc (Bld) 8.0 11.5-15.5 g/dL Low [facility] ([id number]) Comment: Performed By: #### CBC ####M [facility] [address] [place], [place] [address] MCH 29.5 26.0-34.0 pG Normal 07-30-2017 [facility] ([id number]) Comment: Performed By: #### CBC ####M [facility] C[address] [place], [place] [phone] MCHC mass conc (RBC) 31.9 30.5-36.0 g/dL Normal [address] [place] [address] ([id number]) Comment: Performed By: #### CBC ####M [facility] [address] [place], [place] [phone] MCV 92.6 80.0-100.0 fL Normal 07-30-2017 [facility] ([id number]) Comment: Performed By: #### CBC ####M [facility] [address] [place], [place] [phone] Platelet mean volume (PMV) 10.1 9.0-12.7 fL Normal [facility] ([id number]) Comment: Performed By: #### CBC ####M [facility] Y[address] [place], [place] [phone] Platelets 250 150-400 k/uL Normal 07-30-2017 [facility] ([id number]) Comment: Performed By: #### CBC ####M [facility] Bd[address] [place] [address] WBC (Leukocytes) 15.75 3.70-11.00 k/uL High 07-30-2017 [facility] ([id number]) Comment: Performed By: #### CBC ####M [facility] Ofkgjiwg[address] [place], [place] [phone] cbc and differential on 2017-07-30 Abs Baso <0.03 <0.11 Normal 07-30-2017 [facility] (79022) Comment: Performed By: #### CBCDIF ## ##[facility] [address] [place] [address] Abs [place] 0.33 <0.87 k/uL Normal 07-30-2017 [facility] ([id number]) Comment: Performed By: #### CBCDIF ## ##[facility] [address] [place], [place] [phone] Abs Neut 13.64 1.45-7.50 k/uL High 07-30-2017 [facility] ([id number]) Comment: Performed By: #### CBCDIF ## ##[facility] Sox[address] [place], [place] [phone] Basophils/100 WBC Auto (Bld) 0.1 % Normal 0 07-30-2017 [facility] ([id number]) Comment: Performed By: #### CBCDIF ## ##[facility] Ed[address] [place], [place] [phone] Eosinophils 0.04 <0.46 k/uL Normal 07-30-2017 [facility] ([id number]) Comment: Performed By: #### CBCDIF ## ##[facility] [address] [place], [place] [phone] Eosinophils/100 leukocytes 0.3 % Normal [facility] (93786) Comment: Performed By: #### CBCDIF ## ##[facility] Sal[address] [place], [place] [phone] Erythrocyte distribution 12.2 11.5-15.0 % Normal 07-30 [facility] (60016) width Auto Ratio (RBC) Comment: Performed By: #### CBCDIF ## ##[place] [address] Erythrocytes (RBC) 2.64 3.90-5.20 m/uL Low 07-30-2017 [facility] (48474) Comment: Performed By: #### CBCDIF ## ##[facility] [address] [place] [address] Hematocrit (HCT) 25.1 36.0-46.0 % Low 07-30-2017 [facility] (57411) Comment: Performed By: #### CBCDIF ## ##[place] [address] Hemoglobin mass conc (Bld) 7.9 11.5-15.5 g/dL Low [facility] (39648) Comment: Performed By: #### CBCDIF ## ##[place] [address] Lymphocytes 0.93 1.00-4.00 k/uL Low 07-30-2017 [facility] (11657) Comment: Performed By: #### CBCDIF ## ##[place] [address] Lymphocytes/100 leukocytes 6.2 % Normal [facility] (90517) Comment: Performed By: #### CBCDIF ## ##[facility] [address] [place] [address] MCH 29.9 26.0-34.0 pG Normal [facility]-30-2017 [facility] ([id number][facility] Comment: Performed By: #### CBCDIF ## ##[facility] [address] [place] [address] MCHC mass conc (RBC) 31.5 30.5-36.0 g/dL Normal 8 [facility] (47795) Comment: Performed By: #### CBCDIF ## ##[facility] [address] [place] [address] MCV 95.1 80.0-100.0 fL Normal 07-30-2017 [facility] (35440) Comment: Performed By: #### CBCDIF ## ##[facility] [address] [place] [phone] Monocytes/100 leukocytes 2.2 % Normal 07-30 [facility] (78411) Comment: Performed By: #### CBCDIF ## ##[facility] [address] [place] [phone] Neutrophils/100 WBC Auto (Bld) 91.2 % Normal 07-30-2017 [facility] (40315) Comment: Performed By: #### CBCDIF ## ##[facility] [address]38[address] [place] [phone] Platelet mean volume (PMV) 10.4 9.0-12.7 fL Normal [facility] (98551) Comment: Performed By: #### CBCDIF ## ##[facility] X[address]col3542 [place] [phone] Platelets 243 150-400 k/uL Normal 07-30-2017 [facility] (12143) Comment: Performed By: #### CBCDIF ## ##[facility] [address]qs99[address] [place] [phone] WBC (Leukocytes) 14.95 3.70-11.00 k/uL High 07-30-2017 [facility] (16262) Comment: Performed By: #### CBCDIF ## ##[facility] [address] [place] [phone] brief op not on 201 01-02-28 BRIEF OP NOT HNO ID: [id number]: Marge arevalo 07-30-2017 [facility] GuttmanService: General ([id number]) SurgeryAuthor Type: PhysicianType: Brief Op NoteFiled: 07/30/2017 2:51 PMNote Text:BRIEF OPERATIVE NOTATION FOR SURGICAL PROCEDURE.Russell Liz 1990 [id number] femaleLOG ID: [id number]/Procedure Date: 07/30/2017Incision/Procedure Start Time: 2:26 PMIncision Close/Procedure End Time: 2:36 PMSurgeon(s)/Proceduralist(s) and Audio Visual Project Manager(s):Surgeon(s) and Role: * Marge Schafer - PrimaryNo Additional StaffREFERRING PHYSICIAN:OutpatientDEPT: WSeth PROVIDER: P38 POS:[id number]: GeneralASA CLASS: 1 - healthyDIAGNOSIS: POST HEMORRHOIDECTOMY BLEEDPROCEDURE: Anoscopy, examination under anesthesia- [id number]: 1000 in OR - 4000 total for dayEBL: 400 now - 500 including first caseSpecimens: noneADDITIONAL DIAGNOSES:FINDINGS: blood in clot in rectum. No current bleeding.COMPLICATIONS: NonePMHx -PAST MEDICAL HISTORYDiagnosis Date- Abnormal Pap smear of cervix 12/2015 LGSIL pap- Allergic rhinitis, cause unspecified Allergic rhinitis- Asthma- Depression with anxiety 08/30/2016- Eczema- Family history of malignant hyperthermia MATERNAL GRANDMOTHER- fracture age 10 left arm , playground accident- Genital herpes- Headache(784.0)- PMH - PAST MEDICAL HISTORY OF normal color vision- Varicella without mention of complication age 11 months and age 3 years per motherCOMORBIDITIES - NonePost Op Occurrences - Blood loss > 4 units PRBCWound Classification - Clean ContaminatedOperative note dictated in the dictation system. - [id number] Schafer MD BRIEF OP NOT HNO ID: [id number]: Marge arevalo 07-30-2017 [facility] ([id number]) SurgeryAuthor Type: PhysicianType: Brief Op NoteFiled: 07/30/2017 11:02 AMNote Text:BRIEF OPERATIVE NOTATION FOR SURGICAL PROCEDURE.Russell Liz 1990 [id number] femaleLOG ID: [id number]/Procedure Date: 07/30/2017Incision/Procedure Start Time: 10:29 AMIncision Close/Procedure End Time: 10:52 AMSurgeon(s)/Proceduralist(s) and Audio Visual Project Manager(s):Surgeon(s) and Role: * Marge Schafer - PrimaryPhysician Audio Visual Project Manager: Maria Guadalupe Cantu) WheelerREFERRING PHYSICIAN:OutpatientDEPT: WQ PROVIDER: P38 POS:[id number]: GeneralASA CLASS: 2 - mildDIAGNOSIS: symptomatic hemorrhoidsPROCEDURE: Examination Under Anesthesia, Hemorrhoidectomy - 01833-918WCD: 900EBL: 75Specimens: RIght posterior, left lateral and right anterior hemorrhoidalcomplexesADDITIONAL DIAGNOSES:FINDINGS:COMPLICATIONS: NonePMHx -PAST MEDICAL HISTORYDiagnosis Date- Abnormal Pap smear of cervix 12/2015 LGSIL pap- Allergic rhinitis, cause unspecified Allergic rhinitis- Asthma- Depression with anxiety 08/30/2016- Eczema- Family history of malignant hyperthermia MATERNAL GRANDMOTHER- fracture age 10 left arm , playground accident- Genital herpes- Headache(784.0)- PMH - PAST MEDICAL HISTORY OF normal color vision- Varicella without mention of complication age 11 months and age 3 years per motherCOMORBIDITIES - NonePost Op Occurrences - NoneWound Classification - ContaminatedOperative note dictated in the dictation system. - [id number] Schafer MD anes preop on 07-30 ANES PREOP HNO ID: [id number]: Vimal Devine [facility] 07-30-2017 BINTA Zavalaervice: [facility] AnesthesiologyAuthor Type: ([id number]) AnesthesiologistType: Anesthesia PreOpFiled: 07/30/2017 8:07 AMNote Text: ANESTHESIOLOGY DAY OF SURGERY NOTESERVICE DATE: 07/30/2017SERVICE TIME: 804DOB: 1990Procedure(s) (LRB):HEMORRHOIDECTOMY EXTERNAL SINGLE COLUMN GROUP (N/A)Surgeon(s):Marge GarciaanEstimated body mass index is 21.04 kg/(m2) as calculated from thefollowing: Height as of this encounter: 157.5 cm (5' 2.01). Weight as of this encounter: 52.2 kg (115 lb 1.3 oz).Most recent hematocrit and potassium results:Hematocrit 34.0 08/08/2016ANES DOS/PREOP NOTE:Vitals: 803BP: 105/76Pulse: 87Resp: 18Temp: 36.8 ?C (98.2 ?F)TempSrc: Temporal ArterySpO2: 100%Weight: 52.2 kg (115 lb 1.3 oz)Height: 157.5 cm (5' 2.01)ACTIVE PROBLEM LISTOther Atopic Dermatitis and Related ConditionsExtrinsic Asthma, UnspecifiedAllergic Rhinitis, Cause UnspecifiedPain in Joint, Pelvic Region and ThighHistory of Herpes GenitalisTobacco Use in PregnancyHistory of AsthmaSocial ProblemDepression With AnxietyPositive Gbs TestHemorrhoidsPAST MEDICAL HISTORYDiagnosis Date- Abnormal Pap smear of cervix 12/2015 LGSIL pap- Allergic rhinitis, cause unspecified Allergic rhinitis- Asthma- Depression with anxiety 08/30/2016- Eczema- fracture age 10 left arm , playground accident- Genital herpes- Headache(784.0)- PMH - PAST MEDICAL HISTORY OF normal color vision- Varicella without mention of complication age 11 months and age 3 years per motherPAST SURGICAL HISTORYProcedure Laterality Date- DELIVERY ONLY , low transverse- DELIVERY ONLY 10/29/2016- INSERTION OF IUD- REMOVE TONSILS/ADENOIDS,<12 Y/OFAMILY HISTORYProblem Relation Age of Onset- multiple sclerosis [OTHER] Mother- Hypertension Maternal Grandmother Severe- Breast Cancer Maternal Aunt great aunt- Cancer Paternal Aunt skin cancer- chron's disease [OTHER] Paternal Aunt Maternal AuntSocial History:Social HistorySubstance Use Topics- Smoking status: Current Every Day Smoker Packs/day: 0.25 Years: 3.00 Last attempt to quit: 10/29/2010- Smokeless tobacco: Never Used Comment: 3 cigarettes a day- Alcohol use Yes Comment: OccasionallyNo current facility-administered medications on file prior to encounter.Current Outpatient Prescriptions on File Prior to Encounter:hydrocortisone (ANUSOL-HC) 2.5 % rectal cream 1 application by RECTALroute twice daily.triamcinolone acetonide (KENALOG) 0.1 % cream Apply 1 application toaffected area three times daily. Apply sparingly to area for rash/itching.hydrocortisone 1 % cream Apply 1 application to affected area twice daily.levonorgestrel (MIRENA) 20 mcg/24 hr (5 years) IUD Inserted in officecetirizine (ZYRTEC) 10 mg tablet Take 1 tablet by mouth once daily.ACYCLOVIR ORAL Take by mouth as needed.albuterol HFA (PROVENTIL HFA, VENTOLIN HFA) 90 mcg/actuation inhalerInhale 2 Puffs as instructed every 4 hours as needed.Current Facility-Administered Medications:lactated ringers infusion 30 mL/hr INTRAVENOUS CONTINUOUS Marge TGuttmanclindamycin 600 mg in D5W 50 mL (CLEOCIN) 600 mg INTRAVENOUS Pre-Op OnceRichard T GuttmanAllergies:ALLERGIESAllergen Reactions- Dust Mites- Penicillins rash, hives- Sulfa (Sulfonamide * HivesDOS EXAM: Adequate NPO status: YesAnesthetic risks, benefits, alternatives, personnel and consent discussed:YesPatient agrees to proceed: YesPrevious Anesthesia: MATERNAL GRANDMOTHER HAD MHAirway Assessment: MP 2; Neck ROM: Full ROM without neurologic symptoms;Airway Evaluation: tongue ring to be removedSymptoms of Sleep Apnea: NoneDentition: Teeth intactAdditional Physical Exam:Lungs: Patient health status unchanged since recent history and physical.See history and physical for exam findings.Cardiac: Patient health status unchanged since recent history andphysical. See history and physical for exam findings.Blood Products: Not anticipated for this procedure.Anesthetic Plan: General, Standard ASA MonitorsPain Management Plan: Parenteral or OralASA Class: 2Other Medical Problems: NoneChronic Beta Von medication administered within 24 hours: N/AI have interviewed and examined the patient. I have reviewed the medicalrecord and/or the pre-anesthesia evaluation, pertinent labs, and testresults.Significant changes in the patient's condition since the History andPhysical, not otherwise documented in primary service progress notes: NoThis contains updated information obtained within 48 hours ofSurgery/Procedure.SIGNATURE: Vimal Crespo MD PATIENT NAME: Russell WrightosDATE: July 30, 2017 : 8:05 AM CSN: [id number] anes post on 07-30 ANES POST HNO ID: [id number]: Normal 07-04 [facility] Vimal Crespo, ([id number]) MDService: AnesthesiologyAuthor Type: AnesthesiologistType: Anesthesia PostOpFiled: 07/30/2017 3:55 PMNote Text:POST ANESTHESIA EVALUATION NOTESERVICE DATE: 07/30/2017SERVICE TIME: 1553DOB: 1990Vitals: 803 121 Temp: 36.8 ?C (98.2 ?F) 36.3 ?C (97.3 ?F) 36.4 ?C (97.5 ?F) 07/30/18135BP: 94/50 (!) 95/48 91/53 87/52 07/30/1813Pulse: 77 (!) 58 60 61 07/30/1813Resp: 16 16 16 16 07/30/1813SpO2: 96% 96% 100% 100%Validated Vital Signs: YesPOST ANES STATUS: No apparent anesthetic complications. The patient isappropriately hydrated with stable respiratory and cardiovascular status.Patient has safe and adequate airway control. The patient has appropriatepain relief and no significant post operative nausea or vomiting. Thepatient has achieved baseline mental status.Further assessment by Anesthesia Service: NoneOther Remarks: Pt was take emergently to the OR for evaluation of rectalbleeding. Significant clot and blood noted. Post hgb noted to be 7.9.Admitted by dr schafer. HD stable in PACU at this timeSIGNATURE: Vimal Crespo MD PATIENT NAME: Russell WrightosDATE: July 30, 2017 : 3:53 PM PAGER/CONTACT #: ANES POST HNO ID: [id number]: Normal 07-04 [facility] Vimal Crespo, ([id number]) MDService: AnesthesiologyAuthor Type: AnesthesiologistType: Anesthesia PostOpFiled: 07/30/2017 1:05 PMNote Text:POST ANESTHESIA EVALUATION NOTESERVICE DATE: 07/30/2017SERVICE TIME: 1230DOB: 1990Vitals: 07/30/1810Temp: 36.8 ?C (98.2 ?F) 36.3 ?C (97.3 ?F) 07/30/1811BP: 93/52 85/51 82/52 94/50 07/30/1811Pulse: 62 73 69 77 07/30/1811Resp: 16 16 16 16 07/30/1811SpO2: 98% 98% 98% 96%Validated Vital Signs: YesPOST ANES STATUS: No apparent anesthetic complications. The patient isappropriately hydrated with stable respiratory and cardiovascular status.Patient has safe and adequate airway control. The patient has appropriatepain relief and no significant post operative nausea or vomiting. Thepatient has achieved baseline mental status.Further assessment by Anesthesia Service: NoneOther Remarks:SIGNATURE: Vimal Crespo MD PATIENT NAME: Russell WrightosDATE: July 30, 2017 : 1:05 PM PAGER/CONTACT #: nursing prog on 201 01-01-26 NURSING PROG HNO ID: [id number]: Jennifer grimes 07-28-2017 [facility] (Rn) DOMINICK Hurleyervice: ([id number]) (none)Author Type: Registered NurseType: Nursing Progress NoteFiled: 07/28/2017 11:49 AMNote Text:PACC Nurse Progress NoteHistory AND Physical:Original HANDP Date: 07/11/17Labs Within Last 6 Months:N/AImaging Within Last 12 Months:N/ACardiac Testing:N/ALast Menstrual Period:LMP Date: unknownRisk Assessment:N/AAnesthesia Review:DOSNarrative:N/APre-op Considerations:N/AChart Check:Shay Loo 2017 11:43 AMPATIENT PREOPERATIVE INSTRUCTIONSNo ref. provider found has scheduled you for [facility]: [phone] -- [address] [place] [phone].Please read below carefully for your personalized instructions.Blood Thinning Medications:- Stop NSAIDS (Ibuprofen, Advil, Aleve, Motrin, Celebrex, Mobic, etc.) 2days before surgery, as directed by your surgeon.- Stop Vitamin E, ALL multi-vitamins, herbals and dietary supplements 2days before surgery.- You may take Tylenol (Acetaminophen) or any of your pain medicationsthat do not contain aspirin or NSAIDS as needed.Dietary Restrictions:- No solid food after midnight.- You may have 12 ounces of clear liquids (water, clear juices such asapple juice or gatorade, carbonated beverages, clear tea, black coffee,jello) until 2 hours before scheduled arrival at facility.- Do not drink any alcohol after midnight the night before your surgery.Medications:Approved medications to take the morning of surgery with a sip of water:zoloftIf you start any new medications after today's visit, please contact thesurgery center above.Important Reminders:- Candy, mints, gum and tobacco products are NOT permitted the morning ofsurgery.- Hearing aids, dentures and glasses may be worn the morning of surgery.- NO jewelry, body piercings, makeup, nail vincentian, hairpins or contactsare to be worn the day of surgery.If you develop symptoms such as a fever, cold, or flu, or have otherchanges to your health within TWO DAYS of scheduled surgery or the morningof surgery, please contact the surgery center above.Personal Belongings:- Leave ALL valuables and money at home or with family members.For Outpatient Procedures: - YOU MUST HAVE A RESPONSIBLE FARM OWNER OPERATOR TAKE YOU HOME. A HEALTH SERVICES INFORMATION SPECIALIST OR CABDRIVER CANNOT BE MADE A RESPONSIBLE FARM OWNER OPERATOR.- We recommend that a responsible person stays with you overnight to takecare of you.- You cannot stay in a hotel alone after outpatient surgery. You will notbe permitted to have your surgery, if you do not have someone to take careof you. Arrival Time for Surgery:- The Surgery Center or hospital where you are having surgery will callthe afternoon before surgery (or Friday for Friday surgery) with ascheduled arrival time.- If you have not heard by 4 pm, please contact the surgery center above.Please be aware that emergency situations arise, which may delay or changeyour surgical time. If this happens, we will notify you as soon aspossible and regret any inconvenience.Jennifer Hurley RN hosp on 2017-07-14 HOSP Patient:Russell Liz MMRN: Height:5' Normal 07-14-2017 Fall 2.008(1.575 m)Weight:115 lb (52.164 Hospital kg)Outpatient Medications as of ([id number]) 07/30/17:oxyCODONE-acetaminophen (PERCOCET) 5-325 mg tabletdibucaine (NUPERCAINAL) 1 % ointsertraline (ZOLOFT) 50 mg tabletdiphenhydrAMINE (BENADRYL) 25 mg capsulehydrocortisone (ANUSOL-HC) 2.5 % rectal creamtriamcinolone acetonide (KENALOG) 0.1 % creamhydrocortisone 1 % creamlevonorgestrel (MIRENA) 20 mcg/24 hr (5 years) IUDcetirizine (ZYRTEC) 10 mg tabletACYCLOVIR ORALalbuterol HFA (PROVENTIL HFA, VENTOLIN HFA) 90 mcg/actuation inhalerAdmission/Clinic Administered Medications as of 07/30/17:scopolamine 1 mg over 3 days 1 Patch (TRANSDERM-SCOP)scopolamine - REMOVE PATCHscopolamine - VERIFY patchlactated ringers infusionlactated ringers infusionfentaNYL 50 mcg/mL 50 mcg injection (SUBLIMAZE)HYDROmorphone 0.5 mg injection (DILAUDID)ondansetron orally disintegrating 4 mg tab(s) (ZOFRAN ODT)ondansetron (PF) 4 mg injection (ZOFRAN)meperidine (PF) 12.5 mg injection (DEMEROL)oxyCODONE IR 5 mg tab(s) (ROXICODONE)lactated ringers infusionProblem List:Other atopic dermatitis and related conditions [L20.89]Extrinsic asthma, unspecified [J45.909]Allergic rhinitis, cause unspecified [J30.9]Pain in joint, pelvic region and thigh [M25.559]History of herpes genitalis [Z86.19]Tobacco use in [O99.330]History of asthma [Z87.09]Social problem [Z65.9]Depression with anxiety [F41.8]Positive GBS test [B95.1]Hemorrhoids [K64.9]Allergies:Dust MitesPenicillinsSulfa (Sulfonamide Antibiotics)Date Verified: 07/30/17Lab ValuesNo results within the last 30 days for the following basenames: K,HCTProgress Notes ([facility]):Emma Sosa, SOFTWARE SALES CONSULTANT, SOFTWARE SALES CONSULTANT 07/22/2017 3:16 PM SignedOUTPATIENT VISIT DATE July 22, 2017OUTPATIENT VISIT TYPEESTABLISHEDPRIMARY CARE PHYSICIAN:Chao Garcia [facility] COMPLAINT:Patient presents with:Ear Pain: left x 3 daysMedication Problem: discuss zoloft AND vistarilHistory of Present Illness:Russell Liz is a 26 year old female who was last seen 06/30/2016.She has been seen in the past forACTIVE PROBLEM LISTOther Atopic Dermatitis and Related ConditionsExtrinsic Asthma, UnspecifiedAllergic Rhinitis, Cause UnspecifiedPain in Joint, Pelvic Region and ThighHistory of Herpes GenitalisTobacco Use in PregnancyHistory of AsthmaSocial ProblemDepression With AnxietyPositive Gbs TestHemorrhoidsSeen by another provider for viral upper respiratory infection. Presents todaynoting that her right ear still is giving her some pain. She does have allergysymptoms sinus drainage and congestion. No fever. No sore throat.She reports depression then the of her the onset following.She is currently on Zoloft 100 mg daily and hydroxyzine as needed. She reportsfeeling spacey and sleepy on these medications. She like to discuss changes toher medications.The ROS is otherwise negative.The patient's pmh, medications, allergies, and past visits are reviewed.PHYSICAL EXAM:BP 114/58 (BP Site: Right Arm, BP Position: Sitting, BP Cuff Size: RegularAdult) Pulse 72 Resp 16 Wt 52.2 kg (115 lb) BMI 21.03 kg/m8Yzaivwk appearance: tired/ill appearingHead: NormocephalicEyes: conjunctiva/corneas normalEars: R TM - clear with good landmarks, L TM - clear with good landmarksNose: clearOropharynx: moist without lesionsNeck: supple and small, benign anterior cervical nodes bilaterallyHeart: regular rate and rhythm, without murmurLungs: clear to auscultation, without rales or wheeze, good air exchangeNo recent hospital or ED visits.No new medical problems or medications.Able to obtain medications.No problems with taking medications or note side effects.PAST MEDICAL HISTORYDiagnosis Date- Abnormal Pap smear of cervix 12/2015 LGSIL pap- Allergic rhinitis, cause unspecified Allergic rhinitis- Asthma- Depression with anxiety 08/30/2016- Eczema- fracture age 10 left arm , playground accident- Genital herpes- Headache(784.0)- PMH - PAST MEDICAL HISTORY OF normal color vision- Varicella without mention of complication age 12 months and age 3 years per motherPAST SURGICAL HISTORYProcedure Laterality Date- DELIVERY ONLY , low transverse- DELIVERY ONLY 10/29/2016- INSERTION OF IUD- REMOVE TONSILS/ADENOIDS,<12 Y/OFAMILY HISTORYProblem Relation Age of Onset- multiple sclerosis [OTHER] Mother- Hypertension Maternal Grandmother Severe- Breast Cancer Maternal Aunt great aunt- Cancer Paternal Aunt skin cancer- chron's disease [OTHER] Paternal Aunt Maternal AuntSocial HistorySubstance Use Topics- Smoking status: Current Every Day Smoker Packs/day: 0.25 Years: 3.00 Last attempt to quit: 10/29/2010- Smokeless tobacco: Never Used Comment: 3 cigarettes a day- Alcohol use Yes Comment: OccasionallyALLERGIES:ALLERGIESAllergen Reactions- Dust Mites- Penicillins rash, hives- Sulfa (Sulfonamide * HivesMEDICATIONShydrocortisone (ANUSOL-HC) 2.5 % rectal cream 1 application by RECTAL routetwice daily.methylPREDNISolone (MEDROL DOSE-PACK) 4 mg Dose-Pack Take medications asdirected on packaging. Take with food.triamcinolone acetonide (KENALOG) 0.1 % cream Apply 1 application to affectedarea three times daily. Apply sparingly to area for rash/itching.sertraline (ZOLOFT) 100 mg tablet Take 1 tablet by mouth once daily.hydrOXYzine pamoate (VISTARIL) 25 mg capsule Take 1 capsule by mouth three timesdaily as needed.methylPREDNISolone (MEDROL DOSE-PACK) 4 mg Dose-Pack As Instructed per packagehydrocortisone 1 % cream Apply 1 application to affected area twice daily.levonorgestrel (MIRENA) 20 mcg/24 hr (5 years) IUD Inserted in officecetirizine (ZYRTEC) 10 mg tablet Take 1 tablet by mouth once daily.ACYCLOVIR ORAL Take by mouth as needed.albuterol HFA (PROVENTIL HFA, VENTOLIN HFA) 90 mcg/actuation inhaler Inhale 2Puffs as instructed every 4 hours as needed.I personally interviewed, confirmed and edited the above information if obtainedby others.TESTING:No results found for: GLUC, K, NA, CHLOR, CO2, CREAT, BUN, ANION, CANo results found for: GLUC, K, NA, CHLOR, CO2, CREAT, BUN, ANION, CA, TPROT,ALB, TBILI, ALKPHOS, AST, ALTHemoglobin (g/dL)Date Value08/08/2016 10.9 Hematocrit (%)Date Value08/08/2016 34.0 WBC (k/uL)Date Value08/08/2016 10.09 No results found for: CHOL, HDL, LDL, TGNo results found for: FNV1RQymyfsmz Fraction: No results foundIMPRESSION:Ms. Liz is a 26 year old woman presents for follow up visit.After my examination and review of data, I make the following recommendations.PLAN AND RECOMMENDATIONS:1. Anxiety and depression - ICD9: 300.00, 311, ICD10: F41.8 (primary diagnosis)Noting possible adverse effects on 100 mg, decrease to 75 mg dailyContinue with counseling at home and thru hospice- SERTRALINE 50 MG TABLET2. Right ear pain - ICD9: 388.70, ICD10: H92.01- AZITHROMYCIN 250 MG TABLET3. Situational insomnia - ICD9: 307.41, ICD10: F51.09Bendaryl 25 mg qhs as neededCan continue with melatoninAsk that she call and let us know how she is doing.Return to clinic 4- 6 weeks for a recheck.Advised to go to ER if develops chest pain, shortness of breath, or severeworsening of symptoms.Discussed risks, benefits, alternatives, and potential side effects ofmedications.Ms. Liz expressed understanding and agreed with the plan.Rob Figueroa CNS, AZIZA 07/22/2017 2:53 PM SignedTake one and one half 50 mg zoloft daily.Try benadryl 25 mg at bedtime.Progress Notes ([facility]):Refugio Franco Surg Coord 07/14/2017 8:57 AM [id number] Schafer patient given lightbowel prep Refugio Franco Surg Coord Encounters Date Type Reason Provider Location 07-30-2017 - Ambulatory [facility] 07-31-2017 MARGE SCHAFER ([id number]) ELVIA URIBE SHANNAN 08-26-2017 - Emergency RICHSTEPHANIA GUEVARA Juveronnie Kennedyhipolito ne 08-26-2017 department patient RICH GUEVARA [facility] visit RICH GUEVARA ([id number]) CHAO GARCIA UNKNOWN PROVIDER 03-07-2020 - Patient encounter Atopic dermatitis Emma (Marine Structural Welder) [facility] 03-07-2020 procedure Silva Comment: Atopic dermatitis and relate d condition 02-09-2020 - 02-09-2020 Refill (Cn) [facility]/Gynecology Comment: Refill Request 03-07-2020 - 03-07-[address] [facility] ([facility]) [facility] with patient Procedures Procedure Name Date Provider Location Antibody screen 06-04-2019 [facility] ([id number]) Comment: Performed By: #### TSPN #### [facility] [id number] [place], [place] [phone] Plan of Treatment Plan Description Date Location PAP TESTING PAP TESTING 03-24-2022 - [facility] 03-24-2022 ([id number]) INFLUENZA (#1) INFLUENZA (#1) 2020 - [facility] 02-01-2020 ([id number]) ANNUAL PCP TEAM CHRONIC ANNUAL PCP TEAM CHRONIC 11-04-2019 - [facility] DISEASE VISIT DISEASE VISIT 11-04-2019 ([id number]) DTAP,TDAP,TD (7 - Td) DTAP,TDAP,TD (7 - Td) 03-05-2016 - [facility] 03-05-2016 ([id number]) ONE PNEUMOVAX PRIOR TO ONE PNEUMOVAX PRIOR TO 11-25-2010 - [facility] AGE 65 AGE 65 11-25-2010 ([id number]) SPIROMETRY SPIROMETRY 11-25-2009 - [facility] 11-25-2009 ([id number]) Immunizations Vaccine Notes Status Date Location Chicken Pox Chicken Pox (disease) (completed) 09-30-1992 [facility] (disease) 09-30-1992 ([id number]) DTP diphtheria, tetanus (completed) 10-21-1996 - [facility] toxoids and pertussis 10-21-1996 ([id number] ) vaccine DTP diphtheria, tetanus (completed) 07-24-1994 - [facility] toxoids and pertussis 07-24-1994 ([id number] ) vaccine DTP diphtheria, tetanus (completed) 10-31-1993 - [facility] toxoids and pertussis 10-31-1993 ([id number] ) vaccine DTP diphtheria, tetanus (completed) 05-05-1992 - [facility] toxoids and pertussis 05-05-1992 ([id number] ) vaccine DTP diphtheria, tetanus (completed) 02-28-1992 - [facility] toxoids and pertussis 02-28-1992 ([id number] ) vaccine Hib - 4 Dose haemophilus (completed) 07-03-1994 - [facility] Schedule influenzae type b 07-03-1994 ([id number]) vaccine, HbOC conjugate Hib - 4 Dose haemophilus (completed) 05-02-1992 - [facility] Schedule influenzae type b 05-02-1992 ([id number]) vaccine, HbOC conjugate Hib - 4 Dose haemophilus (completed) 02-01-1992 - [facility] Schedule influenzae type b 02-01-1992 ([id number]) vaccine, HbOC conjugate Hepatitis B hepatitis B vaccine, (completed) 08-25-1992 - [facility] Peds/Adol pediatric or 08-25-1992 ([id number]) pediatric/adolescent dosage Hepatitis B hepatitis B vaccine, (completed) 04-13-1992 - [facility] Peds/Adol pediatric or 04-13-1992 ([id number]) pediatric/adolescent dosage Hepatitis B hepatitis B vaccine, (completed) 1991 - [facility] Peds/Adol pediatric or 1991 (42782) pediatric/adolescent dosage MMR measles, mumps and (completed) 10-28-1996 - [facility] rubella virus vaccine 10-28-1996 ([id number] ) MMR measles, mumps and (completed) 11-29-1993 - [facility] rubella virus vaccine 11-29-1993 ([id number] ) Tdap (Age 7+) tetanus toxoid, ([facility] ([id number]) toxoid, and acellular pertussis vaccine, adsorbed OPV trivalent poliovirus (completed) 10-28-1996 - [facility] vaccine, live, oral 10-28-1996 ([id number]) OPV trivalent poliovirus (completed) 11-01-1995 - [facility] vaccine, live, oral 11-01-1995 ([id number]) OPV trivalent poliovirus (completed) 07-03-1994 - [facility] vaccine, live, oral 07-03-1994 ([id number]) OPV trivalent poliovirus (completed) 05-02-1992 - [facility] vaccine, live, oral 05-02-1992 ([id number]) OPV trivalent poliovirus (completed) 02-28-1992 - [facility] vaccine, live, oral 02-28-1992 ([id number]) Payers Payer Name Policy Number Location [facility] [id number] [facility] ([id number]) The following information is from the original human readable contentNo Payer Records FoundNo Payer Records FoundNo Payer Records Found Social History Type Social History Date Location Description Tobacco smoking Current every day smoker 12-17-2019 - [facility] status NHIS 12-17-2019 ([id number]) History of tobacco Smoker 10-29-2010 [facility] [place] [facility] alexandr use (16451) Tobacco use and Never used 12-17-2019 - [facility] exposure 12-17-2019 (09384) Alcohol intake Ex-drinker (finding) 12-17-2019 - [facility] linic 12-17-2019 (48562) Tobacco Comment [facility]-08-[facility] (21075) Alcohol Comment Occasionally 03-10-2017 - [facility] 03-10-2017 ([id number]) Sex Assigned At Not on file [facility] (44399) Exposure to Not sure [facility] SARS-CoV-2 (event) (07990) The following information is from the original human readable contentNo Social History Records FoundNo Social History Records FoundNo Social History Records FoundNo Social History Records FoundNo Social History Records Found Summary Purpose Family History No Family History Records FoundNo Family History Records FoundNo Family History Records Found Advance Directives No Advanced Directives Records Found Documents on File Type Date Recorded Patient Silver Chaser Explanati on Advance Directive(s) 07/30/2017 7:46 AM Documents on File Type Date Recorded Patient Silver Chaser Explanati on Advance Directive(s) 07/30/2017 7:46 AM History of Past Illness Problem Noted Date Resolved Date Previous delivery affecting 03/11/2019 11/08/2019 Overview: 03/11/2019Pt had 2 previous C sections. She desires a repeat C section by Dr Wood. She desires a PPTL. Patient wi ll need to sign Title 19 form.TKRN Nausea and vomiting in 03/11/2019 020 Overview: [id number] is complaining of nause a and occasional vomiting in . Dietary considerations discussed . Vitam in B6 recommended. Advised patient to call/come in if she is unable to keep an y food or fluids down in a 24-hour period. TKRN. History of polyhydramnios 03/11/2019 11/08/2019 Overview: 03/11/2019 In prior . TKRN Rectal bleeding 07/30/2017 07/31/2017 Polyhydramnios in third trimester 10/25/20162016 38 weeks gestation of 10/25/2016 02/14/20 17 Positive GBS test 10/10/2016 11/08/2019 Trichomonal vaginitis during in first trimester 02/13/2017 Overview: 03/19/16: done at [facility], + [facility], will do ANDRIY next visit. Repeat cultures at 36 weeks. Jerica Wood MD History of delivery 03/07/2016 02/13/2017 Overview: 03/19/16: thinking about TOLAC- success rate based on calculator 82.7% Jerica Wood MD Risks/benefits/alternatives discussed wi th patient regarding trial of labor and potential for uterine rupture. Risks include but are not limited to maternal hemorrhage, risk of injury to adjacent organs including potential hysterectomy. risks discussed as well, including potential for permanent neurologic injury or . Overall uterine rupture risk is less than 1% after one section. Is a trial of labor contraindicated for this patient? No If no, calculate rate of success us ing pre-labor factors: http://www.[facility].edu/mfmu/vagbirth.html Predicted chance of vaginal after : 82.7% Jerica Wood MD 03/07/2016Pt had a previous C section in [place], [place]. She desires a repeat C section by Dr Peralta. She is instructed to sign a release form to obtain her operative report from previous C Section. TKRN History of herpes genitalis 03/07/2016 11/08/2019 Overview: Pt has a history of genital her pes. Discussed with pt. importance of reporting any outbreaks during should they occur.Patient states FOB unaware that she has a history of herpes and she is asking that we do not speak about this in front of him. I did discuss with patient importance of informing any partners she has about this. TKRN Tobacco use in 03/07/2016 11/08/2019 Overview: 03/11/2019 Pt smokes 2 cigarettes a day, down from 1 ppd. Discussed risks of smoking during . Advised pt to quit.TKRN History of asthma 03/07/2016 11/08/2019 Overview: 03/07/2016Pt has a history of asthma. Sh e uses an inhaler PRN.TKRN Social problem 03/07/2016 11/08/2019 Overview: 03/07/2016Pt states she has many things gong on in her life. She states that FOB is not excited about this because of her history of miscarriage in July. She lives with her mother and he r mother is not happy about the pregnanc y and patient needs to move out of the house. She is now apartment shopping. She also states that a friend of hers recently . Pt denies depression, but affect appears flat. Declines social se rvice or counseling services.TKRN Pelvic pain in 03/07/2016 09/20/2016 Overview: 03/07/2016 Patient called in 02/28 c/o pelvic cramping. Quantitative HCG was done. Patient states cramping has lessened, denies bleeding. Pt to call/come in if pain increases, the development of bleedin g or PRN problems. TKRN Patient requested diagnostic testing 03/07/2016 Overview: 03/11/2019Patient desires nuchal ultraso und. Considering genetic carrier screening testing. TKRN Pain in joint, pelvic region and thigh 09/01/2012 0 11/08/2019 Problem Noted Date Resolved Date Previous delivery affecting 03/11/2019 11/08/2019 Overview: 03/11/2019Pt had 2 previous C sections. She desires a repeat C section by Dr Wood. She desires a PPTL. Patient wi ll need to sign Title 19 form.TKRN Nausea and vomiting in 03/11/2019 020 Overview: [id number] is complaining of nause a and occasional vomiting in . Dietary considerations discussed . Vitam in B6 recommended. Advised patient to call/come in if she is unable to keep an y food or fluids down in a 24-hour period. TKRN. History of polyhydramnios 03/11/2019 11/08/2019 Overview: 03/11/2019 In prior . TKRN Rectal bleeding 07/30/2017 07/31/2017 Polyhydramnios in third trimester 10/25/20162016 38 weeks gestation of 10/25/2016 02/14/20 17 Positive GBS test 10/10/2016 11/08/2019 Trichomonal vaginitis during in first trimester 02/13/2017 Overview: 03/19/16: done at [facility], + [facility], will do ANDRIY next visit. Repeat cultures at 36 weeks. Jerica Wood MD History of delivery 03/07/2016 02/13/2017 Overview: 03/19/16: thinking about TOLAC- success rate based on calculator 82.7% Jerica Wood MD Risks/benefits/alternatives discussed wi th patient regarding trial of labor and potential for uterine rupture. Risks include but are not limited to maternal hemorrhage, risk of injury to adjacent organs including potential hysterectomy. risks discussed as well, including potential for permanent neurologic injury or . Overall uterine rupture risk is less than 1% after one section. Is a trial of labor contraindicated for this patient? No If no, calculate rate of success us ing pre-labor factors: http://www.[facility]/mfmu/vagbirth.html Predicted chance of vaginal after : 82.7% Jerica Wood MD 03/07/2016Pt had a previous C section in [place], [place]. She desires a repeat C section by Dr Peralat. She is instructed to sign a release form to obtain her operative report from previous C Section. TKRN History of herpes genitalis 03/07/2016 11/08/2019 Overview: Pt has a history of genital her pes. Discussed with pt. importance of reporting any outbreaks during should they occur.Patient states FOB unaware that she has a history of herpes and she is asking that we do not speak about this in front of him. I did discuss with patient importance of informing any partners she has about this. TKRN Tobacco use in 03/07/2016 11/08/2019 Overview: 03/11/2019 Pt smokes 2 cigarettes a day, down from 1 ppd. Discussed risks of smoking during . Advised pt to quit.TKRN History of asthma 03/07/2016 11/08/2019 Overview: 03/07/2016Pt has a history of asthma. Sh e uses an inhaler PRN.TKRN Social problem 03/07/2016 11/08/2019 Overview: 03/07/2016Pt states she has many things gong on in her life. She states that FOB is not excited about this because of her history of miscarriage in July. She lives with her mother and he r mother is not happy about the pregnanc y and patient needs to move out of the house. She is now apartment shopping. She also states that a friend of hers recently . Pt denies depression, but affect appears flat. Declines social se rvice or counseling services.TKRN Pelvic pain in 03/07/2016 09/20/2016 Overview: 03/07/2016 Patient called in 02/28 c/o pelvic cramping. Quantitative HCG was done. Patient states cramping has lessened, denies bleeding. Pt to call/come in if pain increases, the development of bleedin g or PRN problems. TKRN Patient requested diagnostic testing 03/07/2016 Overview: 03/11/2019Patient desires nuchal ultraso und. Considering genetic carrier screening testing. TKRN Pain in joint, pelvic region and thigh 09/01/2012 0 11/08/2019 Reason for Referral Status Reason Specialty Diagnoses / Referred By Referred To Procedures Contact Contact Ref Not PCP Requested Dermatology Diagnoses Atopic dermatitis and related condition SosaCheyennei Required Referral Procedures CONSULT TO DERMATOLOGY ([facility]) [address] [place] [address] History of Present Illness Emma Sosa ([facility]) - [facility]07[facility]2020 [facility] This Team Access Model visit is a virtual encounter. It required patient- provider interaction for the medical decision making as documented below. Russell Liz is a 29 year old female seen for follow up of eczema. Treatments: Supervisor Lead Refinery: Russell Liz is a 29 year old female who presents with complaint of rash for about 2 weeks. Notes she has been tanning recently. Not spreading. consistent with previous eczema flares. She notes eczema rash on buttocks, legs, back, head. Has been tanning. 2 weeks. Steroid cream not available, ran out. Prednisone does help,last doing less helpful. HISTORY REVIEWED (electronic chart updated): - medical history - medications - allergies REVIEW OF SYSTEMS: GENERAL: no recent change in weight, no fever, activity level is normal RESPIRATORY: no cough, no wheezing or shortness of breath SKIN: as noted in HPI PHYSICAL EXAMINATION: VIDEO EXAM: (if done, performed via video enabled technology) GENERAL: alert and appropriate, in no distress, well-hydrated, well nourished and happy, smiling, interactive SKIN: rash noted: presnt onlegs, back, buttocks RESPIRATORY: breathing non-labored and no grunting/flaring/retractions CHEST: equal chest rise with normal respiratory effort NEUROLOGIC: no obvious deficit ASSESSMENT: (L20.9) Atopic dermatitis and related condition PLAN: ASSESSMENT/PLAN: 1. Atopic dermatitis and related condition - ICD9: 691.8, ICD10: L20.9 - Begin treatment with topical steriods for up to 2 weeks - Dry skin care instructions reviewed - Use mild soap like Dove, Aveeno or Cetaphil - limit shower/bath to less than 15 minutes with warm, not hot, water - BID use of recommended emollients such as Cetaphil, Eucerin Plus, Aveeno, Aquaphor - Follow up if symptoms persist or worsen. - Referral to Dermatology for further management if needed, [facility] - TRIAMCINOLONE ACETONIDE 0.1 % TOPICAL CREAM - PREDNISONE 10 MG TABLET - CONSULT TO DERMATOLOGY 15 min spent in visit There are no Patient Instructions on file for this visit. Emma Sosa APRN.SOFTWARE SALES CONSULTANT documented in this encounter Assessments Diagnosis Atopic dermatitis and related condition Other atopic dermatitis and related cond itions Additional Source Comments FOR RECORDS PERTAINING TO PATIENTS WHO ARE OR HAVE BEEN ENROLLED IN A CHEMICAL DEPENDENCY/SUBSTANCE ABUSE PROGRAM, SOME INFORMATION MAY BE OMITTED. This clinical summary was aggregated from multiple sources. Caution should be exercised in using it in the provision of clinical care. This summary normalizes information from multiple sources, and as a consequence, information in this document may materially changethe coding, format and clinical context of patient data. In addition, data may be omittedin some cases. CLINICAL DECISIONS SHOULD BE BASED ON THE PRIMARY CLINICAL RECORDS. [employer] [facility] provides no warranty or guarantee of the accuracy or completeness of information in this document. UNRECOGNIZED CONTENT PROVIDED BELOW FOR UNRECOGNIZED SECTION INFORMATION SOURCE DATE CREATED AUTHOR AUTHOR'S ORGANIZATIO N 11/20/2017 [facility] DATE CREATED AUTHOR AUTHOR'S ORGANIZATIO N 11/21/2017 [facility] DATE CREATED AUTHOR AUTHOR'S ORGANIZATIO N 03/07/2020 [facility] UNRECOGNIZED CONTENT PROVIDED BELOW FOR UNRECOGNIZED SECTION Source Comments In the event this information is protected by the Federal Confidentiality of Alcohol and Drug Abuse Patient Records regulations: The Federal rules restrict any use of the information to criminally investigate or prosecute any alcohol or drug abuse patient.[facility] the event this information is protected by the Federal Confidentiality of Alcohol and Drug Abuse Patient Records regulations: The Federal rules restrict any use of the information to criminally investigate or prosecute any alcohol or drug abuse patient.[facility] UNRECOGNIZED CONTENT PROVIDED BELOW FOR UNRECOGNIZED SECTION Reason for Visit Reason Onset Date Comments Refill Request 02/09/2020 Reason Comments Follow Up rash UNRECOGNIZED CONTENT PROVIDED BELOW FOR UNRECOGNIZED SECTION Miscellaneous Notes Telephone Encounter - Esperanza Cealya RN - 02/10/2020 8:50 AM EDTPatient notified. Esperanza Celaya RN elephone Encounter - Karen Hawthorne RN - 02/10/2020 8:40 AM EDTLeft message for patient to call office. Karen Hawthorne RN elephone Encounter - Veronica Rodriguez) - 02/10/2020 7:22 AM EDTPlease let the pt know that I did send in a medrol pack for her, but she will need to see PCP for any further treatment for the eczema. Veronica Rodriguez APRN.CNP elephone Encounter - Esperanza Celaya RN - 02/09/2020 3:24 PM EDTLeft voicemail to let her know provider ignition mechanic would not refill. Previous note states she waants towait for RM response. Forwarded to . Esperanza Celaya RN elephone Encounter - Jessica Ku) - 02/09/2020 2:22 PM EDTWould recommend appointment with primary care for treatment or to urgent care. Jessica Ku APRN.CNM Telephone Encounter - Karen Hawthorne RN - 02/09/2020 10:39 AM EDTPatient was prescribed Medrol dose pack by RM at her PP visit in November for her eczema. Calling to request another RX. The eczema is all over her arms, shoulders, and legs. Aware that RM is out of the office. Would like provider ignition mechanic to review in her absence. If DOC not able to send in for her, she would like to wait for RM's response tomorrow. Karen Hawthorne RN documented in this encounter
== END | disposition home or self-care (01) ==
LOC: LABSPEC 13:44
PROVIDERS: PCP Internal Medicine; Referring Provider Obstetrics & Gynecology; Visit Provider Obstetrics & Gynecology
DX: Z11.59 Encounter for screening for other viral diseases (principal)
CPT/HCPCS: 87635; 94799; C9803; G2023; U0003

== ENCOUNTER 2019-11-01 05:00 | Inpatient (IN) | payer SELFPAY ==
--- NOTE | 2019-10-28 13:44 | PCM.HP.BLA ---
History and Physical Date of Admission: 11/01/19 Jerica Rivaskathiemarla Coty Physician Specialty: SAFETY INSPECTOR H&P Signed Encounter Date: 10/27/2019 Expand All Collapse All Hide copied text Rolanda for details Pre-Op History and Physical ? HPI: The patient is a 28 year old female presenting for pre-operative visit. She is scheduled for and bilateral salpingectomy, for repeat elective cs and desires sterilization on 11/01/19. Procedure discussed along with risks, benefits and complications. Other alternatives discussed for management. Consent form signed? Yes. ? ? PAST MEDICAL HISTORY PAST MEDICAL HISTORY Diagnosis Date ? Abnormal Pap smear of cervix 12/2015 ? LGSIL pap ? Allergic rhinitis, cause unspecified ? ? Allergic rhinitis ? Anemia ? ? Asthma ? ? Depression with anxiety 08/30/2016 ? Eczema ? ? Family history of malignant hyperthermia ? ? MATERNAL GRANDMOTHER ? fracture age 9 ? left arm , playground accident ? Genital herpes ? ? Headache(784.0) ? ? PMH - PAST MEDICAL HISTORY OF ? normal color vision ? Varicella without mention of complication ? ? age 11 months and age 3 years per mother ? ? PAST SURGICAL HISTORY PAST SURGICAL HISTORY Procedure Laterality Date ? DELIVERY ONLY ? ? ? , low transverse ? DELIVERY ONLY ? 10/29/2016 ? HEMORRHOID SURGERY HX ? 07/30/2017 ? Fall ? INSERTION OF IUD ? ? ? REMOVE TONSILS/ADENOIDS,<12 Y/O ? ? ? CURRENT MEDICATIONS Current Outpatient Medications Medication Sig Dispense Refill ? acyclovir (ZOVIRAX) 400 mg tablet Take 1 tablet by mouth three times daily. 90 tablet 0 ? triamcinolone acetonide (KENALOG) 0.1 % cream Apply 1 application to affected area three times daily. Apply sparingly to area for rash/itching. 80 g 5 ? albuterol HFA (PROVENTIL HFA, VENTOLIN HFA) 90 mcg/actuation inhaler Inhale 2 Puffs as instructed every 4 hours as needed. 1 Inhaler 0 ? Pmtdnmve-Ad-Cce-Fe-FA ( VITAMIN) tab Take 1 tablet by mouth. ? ? ? No current facility-administered medications for this visit. ? ALLERGIES: Dust Mites; Penicillins; Sulfa (Sulfonamide Antibiotics) ? PERSONAL HISTORY: SOCIAL HISTORY Social History ? Tobacco Use ? Smoking status: Current Every Day Smoker ? ? Years: 9.00 ? ? Last attempt to quit: 10/29/2010 ? ? Years since quittin.0 ? Smokeless tobacco: Never Used ? Tobacco comment: 2 cigarettes daily Substance Use Topics ? Alcohol use: Not Currently ? ? Comment: Occasionally ? Drug use: Not Currently ? ? Types: Marijuana ? FAMILY HISTORY: FAMILY HISTORY FAMILY HISTORY Problem Relation Age of Onset ? other (multiple sclerosis) Mother ? ? No Known Problems Father ? ? No Known Problems Sister ? ? Depression Sister ? ? Depression Sister ? ? No Known Problems Brother ? ? No Known Problems Brother ? ? Hypertension Maternal Grandmother ? ? Severe ? Malig Hyperthermia Maternal Grandmother ? ? Colon Cancer Maternal Grandfather ? ? No Known Problems Paternal Grandfather ? ? No Known Problems Paternal Grandmother ? ? other (PTSD) Son ? ? Breast Cancer Maternal Aunt ? ? great aunt ? Cancer Paternal Aunt ? ? skin cancer ? other (chron's disease) Paternal Aunt ? ? Maternal Aunt ? No Known Problems Son ? ? REVIEW OF SYMPTOMS: negative except as noted above PHYSICAL EXAMINATION: ? VITALS: Blood pressure 100/64, weight 138 lb (62.6 kg), last menstrual period 02/01/2019. ? GENERAL: The patient is well nourished, well hydrated in no acute distress. , The patient is oriented to time, place, and person. NECK: normal range of motion GENITALIA: exam deferred Abdomen: gravid, non tender FHR 125bpm ? IMPRESSION:PLAN: elective repeat cs at 39 weeks with bilateral salpingectomy ? Pt has been counseled on risks/benefits and alternatives of surgery including but not limited to anesthesia, bleeding, infection, injury to pelvic structures including bowel, bladder, ureters and vessels. Pt wishes to proceed with surgery at this time. Pt understands salpingectomy is permanent and risk of regret- would like to proceed. ? COVID 19 testing pre op ordered and explained to patient. ? I have reviewed and updated past medical and surgical history, medications and allergies Jerica Ansari MD Routine Office Visit on 10/27/2019 Procedure Criteria Procedure Type: Essential Procedure Essential: Yes Criteria Statement: On 08/17/2019 the [facility] ([facility]) Public Order signed by [facility] Director Deneen Oneida, M.D., regarding the Management of Non-Essential Surgeries and Procedures for the purpose of preserving Personal Protective Equipment (PPE) and critical hospital capacity and resources within [place] went into effect as of 08/18/2019 at 5:00PM. According to the [facility] Public Order: This action will remain in full force and effect until the State of Emergency declared by the Governor no longer exists or the Director of the [facility] rescinds or modifies this Order. This [facility] order stated all non-essential or elective surgeries and procedures that utilize PPE should be delayed unless there is undue risk to the current or future health of a patient. After reviewing the aforementioned [facility] Public Order and the patient's clinical case, I have determined that the scheduled procedure meets the criteria to go forward. Risk to Patient if Procedure Delayed: Threat to patient's life if surgery or procedure is delayed
[2019-11-01] VITALS (16 sets, daily range): BP systolic 93–110; BP diastolic 43–69; PULSE 68–84; RESP 12–18; TEMP 36.4–36.8; O2SAT 98–100; BMI 26.6
--- NOTE | 2019-11-01 | FALS_PTH ---
PATIENT: LILIANA RODRIGUES LOC: WP U#:[id number] AGE/SX: 28/F ROOM: WP008 RE11/01/[address]: Dr. Jerica Knight, MDDOB: 1990 BED: 1 DIS: 11/03/2019 SPEC #: [id number] RECD: 11/01/19 10:03 STATUS: JACK YAMILA #: [id number] PILAR: 11/01/19 00:[address]: Jerica Knight DEPT: SURGICAL PATHOLOGY RECD BY: Jarrod Gamboa ENTERED: 11/01/19 10:03 SP TYPE: FALL TUBES OTHR DR: Dr. Arabella Marin MD Tissues: Fallopian tube Procedures: Surgery Specimen Level II Surgery Specimen Level IV HEADER OPERATION: Tubal ligation PRE-OP DIAGNOSIS: Sterilization TISSUE SUBMITTED: Fallopian tubes MICROSCOPIC DIAGNOSIS Right and left fallopian tubes, bilateral salpingectomies: Complete segments of fallopian tubes. One fallopian tube with benign paratubal cyst. AM:cecil 11/02/19 MICROSCOPIC DESCRIPTION Slides are reviewed. GROSS DESCRIPTION Received in fixative is one container labeled with the patient's name and designated bilateral fallopian tubes. The specimen consists of two fallopian tubes with an average length of 6 cm and has an average diameter of 0.4 cm. One fallopian tube contains a suture. Both fallopian tubes have normal fimbriated ends. No mass lesions are identified. Drop Machine Operator sections are submitted in two cassettes as follows: 1 - one fallopian tube with suture, 2 - the other fallopian tube. / AM:cecil 11/01/19 TC:5 CPT: 39158, 75554
[2019-11-01] MEDS: Lactated Ringers 1,000 ML 999 ML IV (05:30)
[2019-11-01 05:46] LABS: Absolute Lymphocyte Count 2.73 X10^3/uL (0.83-4.51); Absolute Neutrophil Count 5.1 X10^3/uL (2.0-7.7); Basophil# 0.03 X10^3/uL; Basophil% 0.3 % (0-1); Eosinophil# 0.13 X10^3/uL; Eosinophils% 1.4 % (0-5); Hematocrit 32.5 % (37-47); Hemoglobin 10.3 g/dL (12.0-15.0); Lymphocyte # 2.73 X10^3/ul (4.0); Mean Corp Hgb Conc 31.7 g/dL (32-36); Mean Corpuscular Hgb 29.2 pg (27.0-32.0); Mean Corpuscular Volume 92.1 fL (81-99); Mean Platelet Vol. 10.4 fl (6.2-12.0); Monocyte# 0.79 X10^3/uL; Monocyte% 8.7 % (0-10); NRBC Flagged by Analyzer 0 % (0-5); Neutrophil # 5.13 X10^3/uL (2.7-7.7); Neutrophil % 56.3 % (47-70); Platelet Count 266 K/mm3 (150-450); RBC Distribution Width CV 13.5 % (11.6-14.6); RBC Distribution Width SD 45.4 fl (35.1-43.9); Red Blood Count 3.53 M/mm3 (4.2-5.4); White Blood Count 9.1 K/mm3 (4.4-11.0)
[2019-11-01] MEDS: Lactated Ringers 1,000 ML 150 ML IV (06:25)
[2019-11-01] MEDS: Sodium Citrate/Citric Acid 30 ML UDC PO (07:01)
[2019-11-01] MEDS: Cefazolin 2 GM in 0.9% Normal Saline 100 ML IV (07:06)
--- NOTE | 2019-11-01 07:07 | OP.PCM_ITS ---
Delivery Classification: Scheduled Final SHAMEKA: 11/08/19 Final SHAMEKA Source: US <20 weeks Gestational age: 39 Weeks and 0 Days numerical control operator: Jose Dillon Type of Anesthesia:: Spinal Date of Procedure: 11/01/19 Pre-Operative Diagnosis: elective repeat cs, desires sterilization Post-Operative Diagnosis: same, live male Indications for : Repeat Elective , Desires elective sterilization Description of Procedure: After informed consent was obtained the patient was taken to the operating room she was given spinal anesthesia. He was placed in the supine position. She was then prepped and draped in normal sterile fashion. Once spinal anesthesia was found to be adequate skin incision was made with a scalpel in a Pfannenstiel fashion. It was carried down to the underlying layer of the fascia. Fascia was then incised midline with scapel and extended laterally using curved rangel. 2 straight [place]'s were placed in the superior aspect of the fascial edge and the rectus muscles were dissected off sharply. Attention was then turned to the inferior aspect where again the fascial edge was grasped with 2 straight Yessi clamps tented up and the rectus muscle dissected off shaprly. At this time the rectus muscles were grasped in the midline using 2 Allis clamps and scalpel was used to separate the rectus muscles. Using blunt force the peritoneum was then entered. Metzenbaums were used to take down the rectus muscles inferiorly as well as the peritoneum. At this time the vesicouterine peritoneum was identified. Metzenbaum scissors were used to create a bladder flap and then taken down digitally. Uterine incision was made in a low transverse fashion with the scalpel and then entered bluntly. Gentle opposing traction was placed to extend the uterine incision. The membranes were ruptured amniotic fluid clear. Infant's head was then brought to the uterine incision was delivered atraumatically followed by the rest infant's body. At this time delayed cord clamping was performed mouth nose were suctioned. Infant was then handed to the waiting nursery team. The placenta was then removed with gentle traction. The uterus was removed from the intra-abdominal cavity is wrapped in a moist lap. He was cleared of all clots and debris using a moist lap. Ring clamps were placed on the uterine angles. #1 Vicryl suture was used in a running locked fashion for the first layer. Followed by second imbricating layer with #1 Vicr yl. At this time then the uterus was placed back into abdominal cavity uterine incision was evaluated and noted to be of good hemostasis. Tubes and ovaries were evaluated they were normal. The tubes were grasped in an avascular area with the [place] ligasure used to clamp, seal and transect along mesosalpinx from fibriated end to cornua. Great hemostasis was appreciated at this time the uterine incision was again evaluated good hemostasis was appreciated. Geoff placed over uterine incision and bilateral mesosalpinx. The peritoneum was grasped with Kellys. Peritoneum was reapproximated using #2 Vicryl suture in a running fashion. The fascia was then reapproximated using #1 Vicryl in a running fashion. Subcutaneous layer was evaluated and Bovie was used for any small oozing that was noted per #2-0 plain gut suture was then used to reapproximate the subcutaneous layer 4-0 monocryl was used to reapproximate the skin in a subcutaneous fashion. Dry sterile dressing was applied. Instrument lap needle count were correct ?2. Anticipated normal postoperative course for this patient. Amniotic Membrane Rupture Type: Artificial Amniotic Fluid Description: Clear Placenta Disposition: [facility] Specimen(s) sent to pathology: bilateral fallopian tubes Drain: Madrigal to straight drain Cord Entanglement: Around neck x 1, loose Nuchal Cord Compression: Without compression Cord Vessel Description: 3 Vessels Esitmated Blood Loss (ml): 600 Infant Gender: Male (1 minute): 9 (5 minute): 9 Delayed cord clamping: Yes Antibiotic Given: Ancef 2 grams IV x1 Pt instructed on risks of surgery: Bleeding, Anesthesia Risks, Infection, Permanency, Failure Rate of 1 to 2%, Injury to surrounding structure(s) including bowel and bladder, Availability of other non-permanent control options Complications: None - Admit VTE Documentation VTE Present on Admission: Yes VTE Mechan Device Prophylaxis: SCD's VTE Pharm Prophylaxis ordered?: No
[2019-11-01] MEDS: Oxytocin 30 units/NS 500 ml 30 UNITS/500 ML IV.SOLN 167 UNITS IV (08:40)
[2019-11-01 09:02] LABS: Pathology Specimen OB SEE PATHOLOGY REPORT
[2019-11-01] MEDS: Acetaminophen 500 MG Tablet 1000 MG PO (10:36)
[2019-11-01] MEDS: Lactated Ringers 1,000 ML 100 ML IV (11:56)
[2019-11-01] MEDS: Ketorolac 30 MG/ML Syringe IV ×2 (13:53→19:35)
[2019-11-01] MEDS: 0.9% Saline Lock 10 ML Syringe IV (16:48)
[2019-11-02 00:25] VITALS: BP 99/60; PULSE 78; RESP 18; TEMP 36.2
[2019-11-02] MEDS: Acetaminophen 500 MG Tablet 1000 MG PO (01:24)
[2019-11-02 03:48] VITALS: BP 93/48; PULSE 81; RESP 16; TEMP 36.2
[2019-11-02 06:45] LABS: Hematocrit 26.8 % (37-47); Hemoglobin 8.3 g/dL (12.0-15.0); Mean Corpuscular Hgb 29.6 pg (27.0-32.0); Mean Corpuscular Volume 95.7 fL (81-99); Mean Platelet Vol. 10.8 fl (6.2-12.0); Platelet Count 214 K/mm3 (150-450); RBC Distribution Width CV 13.7 % (11.6-14.6); RBC Distribution Width SD 47.7 fl (35.1-43.9)
[2019-11-02] MEDS: Senna/Docusate Sodium 1 Tablet PO (07:49)
[2019-11-02] MEDS: oxyCODONE 5 MG Tablet PO ×4 (07:50→21:49)
[2019-11-02 07:52] VITALS: BP 97/53; PULSE 71; RESP 16; TEMP 36.6; O2SAT 98
--- NOTE | 2019-11-02 08:16 | PCM.PN.OB ---
Subjective: Patient seen at bedside, doing well. Patient reports good pain control. Mild lochia. Breast-feeding well. Tolerating regular diet. Denies any nausea, vomiting or dizziness. Voiding without difficulty. Mild lochia. - Physical Exam Vitals/I&O's: Vital Signs Temp Pulse Resp BP Pulse Ox 97.8 F 71 16 97/53 L 98 11/02/19 07:52 11/02/19 07:52 11/02/19 07:52 11/02/19 07:52 11/02/19 07:52 Oxygen Delivery Method Room Air Weight: 63.957 kg Body Mass Index (BMI) 26.6 Intake and Output for Last 24 Hours 10/31/19 11/01/19 11/02/19 23:59 23:59 23:59 Intake Total 3990.83 / 3990.83 Output Total 1350 / 1350 850 / 850 Balance 2640.83 / 2640.83 -850 / -850 General: Alert, Oriented x3 Abdomen: Soft, Non Tender, Non-Distended, - - fundus firm. dressing dry and intact Neurological: Cranial nerves II-XII grossly intact Laboratory Results 11/02/19 06:26: WBC 11.0, RBC 2.80 L, Hgb 8.3 L, Hct 26.8 L, MCV 95.7, MCH 29.6, MCHC 31.0 L, RDW Std Deviation 47.7 H, RDW Coeff of Eliana 13.7, Plt Count 214, MPV 10.8 Current Medications Acetaminophen (Tylenol) 1,000 mg PO Q8H PRN PRN Reason: Pain Score 1-3/10 Last Admin: 11/02/19 01:24 Dose: 1,000 mg Documented by: Bisacodyl (Dulcolax) 10 mg RECTAL UD PRN PRN Reason: If no BM Diphenhydramine HCl (Benadryl) 25 mg PO Q6H PRN PRN PRN Reason: ITCHING Stop: 11/02/19 08:36 Hydrocortisone (Hytone) 1 applic TOPICAL TID PRN PRN; Protocol PRN Reason: Discomfort Naloxone HCl 4 mg/ Dextrose 504 mls @ 0 mls/hr IV .Q0M PRN; Protocol PRN Reason: Respiratory depression Ibuprofen (Motrin) 600 mg PO Q6H PRN PRN PRN Reason: Pain Score 1-3/10 Ketorolac Tromethamine (Toradol (Bkc)) 30 mg IV Q6H SANTOS Stop: 11/03/19 08:01 Last Admin: 11/02/19 02:04 Dose: Not Given Documented by: Methylergonovine Maleate (Methergine) 0.2 mg IM X1 PRN PRN Reason: Uterine Atony Nalbuphine HCl (Nubain) 5 mg IV Q3H PRN PRN PRN Reason: ITCHING Stop: 11/02/19 08:36 Naloxone HCl (Narcan) 0.02 mg IV Q1M PRN PRN Reason: RR <10 and pt unresponsive Ondansetron HCl (Zofran) 4 mg IV Q4H PRN PRN PRN Reason: Nausea Oxycodone HCl (Oxyir) 5 - 10 mg PO Q4H PRN PRN PRN Reason: Pain Score 4-10/10 Last Admin: 11/02/19 07:50 Dose: 10 mg Documented by: Prochlorperazine Edisylate (Compazine Iv) 10 mg IV Q6H PRN PRN PRN Reason: NAUSEA Senna/Docusate Sodium (Senokot-S, Vicenta-Colace) 0 tablet PO DAILY PRN PRN Reason: Constipation Last Admin: 11/02/19 07:49 Dose: 1 tablet Documented by: Simethicone (Mylicon) 80 mg PO PCHS PRN PRN Reason: Indigestion/stomach pain Sodium Chloride () 5 - 15 ml IV UD PRN PRN Reason: SALINE FLUSH Last Admin: 11/01/19 16:48 Dose: 10 ml Documented by: Medical Necessity - Tobacco Use Smoking Status: Current every day smoker Assessment/Plan All Active Problems Polyhydramnios affecting in third trimester (Acute) POD#1 doing well routine care pain mgmt ambulation
[2019-11-02] MEDS: Ketorolac 30 MG/ML Syringe IV ×3 (09:31→23:19)
[2019-11-02] MEDS: 0.9% Saline Lock 10 ML Syringe IV ×4 (09:32→23:19)
[2019-11-02] MEDS: Ferrous Sulfate 325 MG Tablet PO ×2 (12:28→17:49)
[2019-11-02 13:48] VITALS: BP 102/57; PULSE 75; RESP 18; TEMP 36.6; O2SAT 100
[2019-11-02 20:27] VITALS: BP 94/52; PULSE 86; RESP 16; TEMP 36.6
[2019-11-03 01:41] VITALS: BP 95/44; PULSE 73; RESP 14; TEMP 36.5
[2019-11-03] MEDS: oxyCODONE 5 MG Tablet PO (06:19)
[2019-11-03 07:50] VITALS: BP 99/61; PULSE 84; RESP 16; TEMP 36.9; O2SAT 98
[2019-11-03] MEDS: Ibuprofen 600 MG Tablet PO (07:51)
[2019-11-03] MEDS: Senna/Docusate Sodium 1 Tablet PO (07:52)
--- NOTE | 2019-11-03 07:52 | PCM.PN.OB ---
Subjective: pt seen at bedside, doing well. pt reports good pain control. lochia mild. Passing flatus, voiding. Bottle feeding. - Physical Exam Vitals/I&O's: Vital Signs Temp Pulse Resp BP Pulse Ox 98.5 F 84 16 99/61 98 11/03/19 07:50 11/03/19 07:50 11/03/19 07:50 11/03/19 07:50 11/03/19 07:50 Oxygen Delivery Method Room Air Weight: 63.957 kg Body Mass Index (BMI) 26.6 Intake and Output for Last 24 Hours 11/01/19 11/02/19 11/03/19 23:59 23:59 23:59 Intake Total 3990.83 / 3990.83 240 / 240 Output Total 1350 / 1350 1250 / 1250 Balance 2640.83 / 2640.83 -1250 / -1250 240 / 240 General: Alert, Oriented x3 Abdomen: Soft, Non-Distended, - - fundus firm. INcision dressing dry and intact Extremities: No Calf Tenderness Current Medications Acetaminophen (Tylenol) 1,000 mg PO Q8H PRN PRN Reason: Pain Score 1-3/10 Last Admin: 11/02/19 01:24 Dose: 1,000 mg Documented by: Bisacodyl (Dulcolax) 10 mg RECTAL UD PRN PRN Reason: If no BM Ferrous Sulfate (Ferrous Sulfate) 325 mg PO 1200,1700 SANTOS Last Admin: 11/02/19 17:49 Dose: 325 mg Documented by: Hydrocortisone (Hytone) 1 applic TOPICAL TID PRN PRN; Protocol PRN Reason: Discomfort Naloxone HCl 4 mg/ Dextrose 504 mls @ 0 mls/hr IV .Q0M PRN; Protocol PRN Reason: Respiratory depression Ibuprofen (Motrin) 600 mg PO Q6H PRN PRN PRN Reason: Pain Score 1-3/10 Methylergonovine Maleate (Methergine) 0.2 mg IM X1 PRN PRN Reason: Uterine Atony Naloxone HCl (Narcan) 0.02 mg IV Q1M PRN PRN Reason: RR <10 and pt unresponsive Ondansetron HCl (Zofran) 4 mg IV Q4H PRN PRN PRN Reason: Nausea Oxycodone HCl (Oxyir) 5 - 10 mg PO Q4H PRN PRN PRN Reason: Pain Score 4-10/10 Last Admin: 11/03/19 06:19 Dose: 10 mg Documented by: Prochlorperazine Edisylate (Compazine Iv) 10 mg IV Q6H PRN PRN PRN Reason: NAUSEA Senna/Docusate Sodium (Senokot-S, Vicenta-Colace) 0 tablet PO DAILY PRN PRN Reason: Constipation Last Admin: 11/02/19 07:49 Dose: 1 tablet Documented by: Simethicone (Mylicon) 80 mg PO PCHS PRN PRN Reason: Indigestion/stomach pain Last Admin: 11/02/19 21:52 Dose: 80 mg Documented by: Sodium Chloride () 5 - 15 ml IV UD PRN PRN Reason: SALINE FLUSH Last Admin: 11/02/19 23:19 Dose: 10 ml Documented by: Medical Necessity - Tobacco Use Smoking Status: Current every day smoker Assessment/Plan All Active Problems Polyhydramnios affecting in third trimester (Acute) POD#2, doing well routine care pain mgmt dc home
--- NOTE | 2019-11-03 07:57 | DCINST_ITS ---
Discharge Diet: No Restrictions Discharge Activity: Return to Normal Activity, May Not Drive - for 2 weeks, May not drive while taking narcotic pain medications., May Shower, May Take a Tub Bath - in 7 days. May resume sexual activity in: 4-6 weeks Lifting Restrictions: 20 pounds Additional Activity Instructions:: Nothing in the vagina for 4-6 weeks. You may return to work/school in 6 weeks. Call your doctor if your incision/area has: Continuous Slow Oozing, Sudden Increased Bleeding, Increased Pain/ Swelling, Increased Redness, Foul Smelling Discharge Call your doctor if you observe: Fever of 101 or Higher, Using more than one pad per hour - for 2 hours Suture Line Care: Avoid Pulling/Pushing, Avoid Pinching/Bending Cleanse incision/area with: Keep Dressing Clean & Dry Additional Instructions: If you experience any of the following, contact your healthcare provider. * Bleeding that soaks a pad every hour for 2 hours * Fever 100.4 or higher * Unrelieved incision or abdominal pain * Swelling, redness, discharge or bleeding from your incision or episiotomy site * Your incision begins to separate * Problems urinating (including inability to urinate or burning while urinating). * Visual changes * Severe headache * Flu-like symptoms * Pain or redness in one of both of your breasts * Pain, warmth, tenderness or swelling in your legs, especially the calf area * Frequent nausea and vomiting * Symptoms of depression or anxiety If you experience any of the following, call 911 or go to the nearest Emergency Room. * Chest pain * Problems breathing * Seizure activity * Partial or complete paralysis of a body part, slurred speech, weakness or drooping of the face, or a sudden inability to walk or hold your balance Allergies/Adverse Reactions: Allergies Penicillins Allergy (Verified 11/01/19 05:21) Hives Sulfa (Sulfonamide Antibiotics) Allergy (Verified 11/01/19 05:21) Hives Medications to take at Discharge No122/Iron/Folic Acid [ Multi Tablet] 1 ea PO DAILY 05/02/19 Acetaminophen [Tylenol] 1,000 mg PO Q8H PRN #60 tab 11/03/19 Ferrous Sulfate 325 mg PO 1200,1700 #60 tab 11/03/19 Ibuprofen [Motrin] 600 mg PO Q6H PRN PRN #60 tab 11/03/19 Oxycodone [Oxyir] 5 - 10 mg PO Q4H PRN PRN 7 Days #20 tablet 11/03/19 Senna/Docusate Sodium [Senokot-S] 1 tab PO DAILY PRN #20 tab 11/03/19 SimETHICONE [Mylicon] 80 mg PO PCHS PRN #30 tab 11/03/19 The following prescriptions were given: Ferrous Sulfate 325 mg PO 1200,1700 #60 tab Transmission Status: Pending to [id number] Ibuprofen [Motrin] 600 mg PO Q6H PRN PRN #60 tab PRN Reason: Pain Score 1-3/10 Transmission Status: Pending to [id number] SimETHICONE [Mylicon] 80 mg PO PCHS PRN #30 tab PRN Reason: Indigestion/stomach pain Transmission Status: Pending to [facility] Oxycodone [Oxyir] 5 - 10 mg PO Q4H PRN PRN 7 Days #20 tablet PRN Reason: Pain Score 4-10/10 Transmission Status: Sent to [facility] Senna/Docusate Sodium [Senokot-S] 1 tab PO DAILY PRN #20 tab PRN Reason: Constipation Transmission Status: Pending to [facility] Acetaminophen [Tylenol] 1,000 mg PO Q8H PRN #60 tab PRN Reason: Pain Score 1-3/10 Transmission Status: Pending to [facility] Follow-Up: Call to make an appointment with your doctor for an incision check in 1-2 weeks. You will also need a 6 week post- follow up appointment. Test results from this visit will be discussed in further detail at your follow- up appointment, if applicable. Please Follow Up With: Jerica Knight MD - Call to make an appointment for an incision check in 1-2 [phone] When: You will need a post- check in 6 weeks. Primary Care Physician: Arabella Marin MD [Primary Care Provider] -
--- NOTE | 2019-11-03 08:06 | DS.PCM_ITS ---
Discharge Summary Date of Admission: 11/01/19 Date of Discharge: 11/03/19 Summary: Patient presented to [facility] November 01, 2019 for scheduled section at 39 weeks. Patient underwent a repeat low transverse section with a bilateral salpingectomy. Uncomplicated surgery and uncomplicated postoperative course. She was discharged home on postoperative day #2. - Physical Exam Vitals/I&O's: Vital Signs Temp Pulse Resp BP Pulse Ox 98.5 F 84 16 99/61 98 11/03/19 07:50 11/03/19 07:50 11/03/19 07:50 11/03/19 07:50 11/03/19 07:50 Oxygen Delivery Method Room Air Weight: 63.957 kg Body Mass Index (BMI) 26.6 Intake and Output for Last 24 Hours 11/01/19 11/02/19 11/03/19 23:59 23:59 23:59 Intake Total 3990.83 / 3990.83 240 / 240 Output Total 1350 / 1350 1250 / 1250 Balance 2640.83 / 2640.83 -1250 / -1250 240 / 240 Current Medications Acetaminophen (Tylenol) 1,000 mg PO Q8H PRN PRN Reason: Pain Score 1-3/10 Last Admin: 11/02/19 01:24 Dose: 1,000 mg Documented by: Bisacodyl (Dulcolax) 10 mg RECTAL UD PRN PRN Reason: If no BM Ferrous Sulfate (Ferrous Sulfate) 325 mg PO 1200,1700 SANTOS Last Admin: 11/02/19 17:49 Dose: 325 mg Documented by: Hydrocortisone (Hytone) 1 applic TOPICAL TID PRN PRN; Protocol PRN Reason: Discomfort Naloxone HCl 4 mg/ Dextrose 504 mls @ 0 mls/hr IV .Q0M PRN; Protocol PRN Reason: Respiratory depression Ibuprofen (Motrin) 600 mg PO Q6H PRN PRN PRN Reason: Pain Score 1-3/10 Last Admin: 11/03/19 07:51 Dose: 600 mg Documented by: Methylergonovine Maleate (Methergine) 0.2 mg IM X1 PRN PRN Reason: Uterine Atony Naloxone HCl (Narcan) 0.02 mg IV Q1M PRN PRN Reason: RR <10 and pt unresponsive Ondansetron HCl (Zofran) 4 mg IV Q4H PRN PRN PRN Reason: Nausea Oxycodone HCl (Oxyir) 5 - 10 mg PO Q4H PRN PRN PRN Reason: Pain Score 4-10/10 Last Admin: 11/03/19 06:19 Dose: 10 mg Documented by: Prochlorperazine Edisylate (Compazine Iv) 10 mg IV Q6H PRN PRN PRN Reason: NAUSEA Senna/Docusate Sodium (Senokot-S, Vicenta-Colace) 0 tablet PO DAILY PRN PRN Reason: Constipation Last Admin: 11/03/19 07:52 Dose: 2 tablet Documented by: Simethicone (Mylicon) 80 mg PO PCHS PRN PRN Reason: Indigestion/stomach pain Last Admin: 11/02/19 21:52 Dose: 80 mg Documented by: Sodium Chloride () 5 - 15 ml IV UD PRN PRN Reason: SALINE FLUSH Last Admin: 11/02/19 23:19 Dose: 10 ml Documented by:
--- OUTSIDE RECORDS SUMMARY | 2020-03-19 05:29 | XMS RPT_ITS | CCD ---
:1990 External Reference #:[id number] Author Organization [facility] Care Team Providers Name Role Phone OMLEY, DO Unavailable Unavailable OMLEY, DO Unavailable Unavailable OMLEY, DO Unavailable Unavailable MD RADHA Unavailable Unavailable MD RADHA Unavailable Unavailable PROVIDER Unavailable Unavailable Keenan SCHAFER Unavailable Unavailable Keenan SCHAFER Unavailable Unavailable JOJO CAMPBELL Unavailable Unavailable Heber Garcia Primary Care Provider Allergies Reported Allergen Reaction(s) Severity Date of Onset Location House dust mite 03-02-2007 - [facility] inic Other Translations: [ DUST [place] [facility]] Penicillins Translations: 03-04-2005 - [facility] Other [ PENICILLINS] [place] [facility] Sulfonamides (Antibiotic) Hives 04-10-2017 - [facility] Other Translations: [ SULFA [place] [facility] (SULFONAMIDE ANTIBIOTICS)] Medications Medication Name Sig Date Prescriber Location Albuterol albuterol HFA 05-07-2018 Wendy ([facility]) [facility] ic (PROVENTIL HFA, Ace ([id number]) VENTOLIN HFA) 90 mcg/actuation inhaler Indications: Wheezing Inhale 2 Puffs as instructed every 4 hours as needed. 1 Inhaler 0 05/07/2018 Active Comment: Inhale 2 Puffs as instructed every 4 hours as needed. Ibuprofen ibuprofen (MOTRIN) 600 11-08-2019 Kinza Peralta [facility] mg tablet Take 1 tablet (441 [id number]) by mouth every 6 hours as needed for Pain. FOR PAIN. 30 tablet 0 11/08/2019 Active Comment: Take 1 tablet by mouth every 6 hours as needed for Pain. FOR PAIN. methylPREDNISolone methylPREDNISolone 02-10-2020 Boone Martin ([facility]) Hal garnett (MEDROL, DEBRA,) 4 mg 03-07-2020 [facility] ( 57001) Dose-Pack As Instructed per package 1 Package 0 02/10/2020 03/07/2020 Discontinued methylPREDNISolone (MEDROL, 02-10-2020 Veronica ([facility]) [facility] DEBRA,) 4 mg Dose-Pack As [place] ([id number]) Instructed per package 1 Package 0 02/10/2020 Active methylPREDNISolone (MEDROL, 12-17-2019 - Veronica ([facility]) [facility] DEBRA,) 4 mg Dose-Pack As 02-10-2020 [place] (53531) Instructed per package 1 Package 0 12/17/2019 02/10/2020 Discontinued Comment: As Instructed per package predniSONE predniSONE (DELTASONE) 03-07-2020 Emma ([facility]) [facility] 10 mg tablet Emma ([facility]) [facility] (42916) Indications: Atopic dermatitis and related condition Take [...] with food. Triamcinolone triamcinolone 08-06-2019 - Emma ([facility]) [facility] aelxandr acetonide (KENALOG) 03-07-2021 Sosa (74302) 0.1 % cream Indications: Atopic dermatitis and related condition Apply 1 application to affected area three times daily. Apply sparingly to area for rash/itching. 80 g 5 03/07/2020 03/07/2021 Active Comment: Apply 1 application to affec joshua area three times daily. Apply sparingly to area for rash/itching. venlafaxine venlafaxine ER (EFFEXOR 12-17-2019 Veronica ([facility]) [facility] XR) 75 mg 24 hr capsule (441 95) Take 1 capsule by mouth once daily. 30 capsule 2 12/17/2019 Active Comment: Take 1 capsule by mouth once daily. Problems Active Problems Category Problem Name Status Date Location Allergic reactions Atopic dermatitis Active 02-19-2007 - [facility] (28993) Anxiety disorders Mixed anxiety and Active 08-30-2016 - [facility] depressive disorder (63050) Asthma Allergic asthma Active 02-19-2007 - [facility] inic (71512) Other upper respiratory Allergic rhinitis Active 02-19-2007 - [facility] disease (95654) Past or Other Problems Category Problem Name Status Date Location Gastrointestinal Hemorrhage of anus Completed 07-31-2017 - [facility] hemorrhage and rectum (36762) Hemorrhoids Unspecified Completed 07-14-2017 - [facility] hemorrhoids (24885) Screening and history of H/O: depression Completed 03-11-2019 - [facility] mental health and (95472) substance abuse codes Results Result Name Value Range Unit Interpretation Flag Date Location progress on 2020-03 PROGRESS HNO ID: [id number] Normal 03-07-2020 [facility] Author: Emma (Stock Shipper) Ian Crabtree ([id number]) Service: ? Author Type: Nurse Specialist Type: Progress Notes Filed: 03/07/2020 10:11 AM Note Text: DISTANCE HEALTH VISIT This Team Access Model visit is a virtual encounter. It requ ired patient-provider interaction for the medical decision making as documented below. Russell Liz is a 29 year old female seen for follow up of eczema. Treatments: Button Grader: Russell Liz is a 29 year old [...] further management if needed, [facility] - TRIAMCINOLONE ACETONIDE 0.1 % TOPICAL CREAM - PREDNISONE 10 MG TABLET - CONSULT TO DERMATOLOGY 15 min spent in visit There are no Patient Instructions on file for this visit. Emma Sosa APRN.CNS obsolete on 2020-02 OBSOLETE Refill (OBGYWM) Normal 02-09-[address] [facility] RUSSELL LIZ ([id number]) 1990 [facility] Date Time Provider Department ([id number]) 02/09/20 JESSICA KU (MARISELA) OBGYWM During your [...] out of the office. Would like provider software applications architect to review in her absence. If DOC not able to send in for her, she would like to wait for 's response tomorrow. Karen Ku APRN.CNM 02/09/2020 2:22 PM Signed Would recommend appointment with primary care for treatment or to urgent care. VAN Madrigal RN 02/09/2020 3:26 PM Signed Left voicemail to let her [facility] provider software applications architect would not refill. Previous note states she [...] Instructed per package Encounter Status:Closed by ESPERANZA CELAYA RN on 02/10/20 trich vaginalis ampl on 2019-12-17 T vag Amplification Negative for Trichomonas Sylvia l 12-17-2019 [facility] vaginalis by [place] [facility] ([id number]) amplification Comment: Performed By: #### TRVAMP ## ##[facility] [address] [place], [place] [id number]- [phone] Trich vag Amp Source Cervix Normal 0 [facility] (73737) Comment: Performed By: #### TRVAMP ## ##[facility] [address] [place], [place] [phone]- [phone] progress on 2019-12 PROGRESS HNO ID: [id number] Normal 12-17-2019 [facility] Author: Veronica Jacobs) Jenniferpaul Crabtree ([id number]) Service: ? Author Type: Nurse Practitioner Type: Progress Notes Filed: 12/17/2019 3:29 PM Note Text: SUBJECTIVE: 29 year old female presents for 6 week exam. Outcome: RCS. Date delivered: 11/01/19. Delivering M.D.: Gregory Wood MD Delivered in what hospital? [facility] Sex: male, Wt: 8 lbs 12 [...] genitalia normal, n ormal Bartholin's glands, urethra, Airport's glands, no vulvar lesio ns, no cervical [...] testing done per pt request. Veronica Rodriguez, FLASH RANGING CREWMEMBER.WELL LOGGING CAPTAIN MUD ANALYSIS gc/chlamydia amplif on 2019-12-17 Chlamydia Amplif Negative for Chlamydia Normal 12-17-2019 [facility] trachomatis by [facility] ([id number]) amplification. Comment: Performed By: #### GCCT #### [address] [phone] GC Amplification Negative for Neisseria Normal 12-17-2019 [facility] gonorrhoeae by Per [facility] ([id number]) amplification. Comment: Performed By: #### GCCT #### [address] [phone]- [phone] GC/Chlam Amp Source Cervix Normal 12-17-2019 [facility] ([id number]) Comment: Performed By: #### GCCT #### [address] [phone] progress on 2019-11 PROGRESS HNO ID: [id number] Normal 11-15-2019 [facility] Author: Jerica Wood [place] ([id number]) Service: ? Author Type: Physician Type: Progress [...] harming yourself or others? Eleazar sinclair 4. Austin Depression Scale (EPDS) Total Score: 4 Feeding: Bottle feeding problems: None Bladder: No dysuria, gross hematuria, urinary frequency, uri nary urgency, or incontinence Bowel symptoms: some diarrhea at times Abdomen: She reports no incisional redness, tenderness, eryt lowell Bleeding: light flow , one day of heavier bleeding- slowed n ow Bottom and Perineum: No issues Sleep: no sleep concerns, does not feel rested [place] since delivery: Not resumed Emotional support: Yes [...] MD progress on 2019-11 PROGRESS HNO ID: [id number] Normal 11-08-2019 [facility] Author: Kinza Peralta Crabtree ([id number]) Service: ? Author Type: Physician Type: Progress [...] of harming yourself or others? N/A 4. Austin Depression Scale (EPDS) Total Score: N/A Feeding: [...] no sleep concerns, does not feel rested [place] since delivery: Not resumed Emotional support: Yes [...] MD progress on 2019-11 PROGRESS HNO ID: [id number] Normal 11-01-2019 [facility] Author: Rosa Maria Mendoza LPN ([id number]) Service: ? Author Type: ? Type: Progress Notes Filed: 11/01/2019 2:07 PM Note Text: Pt delivered via RC[facility]S at [facility] on 11/01/[address] Wood and Dolores SCHREIBER. See OB Outcome note Rosa Maria Mendoza KEEL PRESS OPERATOR history physical on 2019-10-27 HISTORY PHYSICAL HNO ID: [id number] Normal 05- [facility] Author: Jerica Wood [place] ([id number]) Service: ? Author Type: Physician Type: HANDP [...] as needed. 1 Inha ler 0 - Uyvdrktu-Ix-Gap-Fe-FA ( VITAMIN) tab Take 1 tablet by [...] Negative for Group B Normal 0 10-13-2019 [facility] Streptococcus by PCR. Crabtree ([id number]) Comment: Performed By: #### GBPCR ### #[place] [id number] [place], [place] [phone]- [phone] progress on 2019-10 PROGRESS HNO ID: [id number] Normal 10-05-2019 [facility] Author: Kashmir Crabtree ([id number]) Service: ? Author Type: Physician Type: Progress [...] on 2019-09-21 CNCO Letter Text Normal 09-21-2019 [facility] ([id number]) cbc and differential on 2019-08-06 Abs Baso 0.03 <0.11 k/uL Normal 08-06-2019 [facility] (62649) Comment: Performed By: #### CBCDIF ## ##[place] [address] [address] [place], [place] [phone] Abs [place] 0.53 <0.87 k/uL Normal 08-06-2019 [facility] (30558) Comment: Performed By: #### CBCDIF ## ##[address] [phone]- [phone] Abs Neut 7.05 1.45-7.50 k/uL Normal 08-06-2019 [facility] (52683) Comment: Performed By: #### CBCDIF ## ##[address] [phone]- [phone] Absolute nRBC <0.01 <0.01 Normal 08-06-2019 [facility] (81392) Comment: Performed By: #### CBCDIF ## ##[address] [phone] Basophils/100 WBC (Bld) 0.3 % Normal 2019 [facility] (54528) Comment: Performed By: #### CBCDIF ## ##[place] [address] [address], [place] [phone]- [phone] DTYPE Auto Diff Normal 08-06-2019 [facility] (82191) Comment: Performed By: #### CBCDIF ## ##[place] [address] [address] [place] [phone]- [phone] Eosinophils (Bld) [#/Vol] 0.12 <0.46 k/uL Normal [facility] (71789) Comment: Performed By: #### CBCDIF ## ##[place] [address] [address] [place] [phone] Eosinophils/100 WBC (Bld) 1.2 % Normal [facility] (68777) Comment: Performed By: #### CBCDIF ## ##[place] [address] [address] [place] [phone]- [phone] Erythrocyte distribution 12.7 11.5-15.0 % Normal 08-05 [facility] width (RBC) [Ratio] [place] (79002) Comment: Performed By: #### CBCDIF ## ##[place] [address] [address] [place] [phone] Hematocrit (Bld) [Volume 35.8 36.0-46.0 % Low 08-05 [facility] fraction] ([id number]) Comment: Performed By: #### CBCDIF ## ##[place] [address] [address], [place] [phone]- [phone] Hemoglobin (Bld) 11.5 11.5-15.5 g/dL Normal 08-06-2019 [facility] [Mass/Vol] [place] (98955) Comment: Performed By: #### CBCDIF ## ##[place] [address] [address], [place] [phone] Lymphocytes (Bld) [#/Vol] 2.35 1.00-4.00 k/uL Normal [facility] (66459) Comment: Performed By: #### CBCDIF ## ##[place] [address] [address], [place] [phone]- [phone] Lymphocytes/100 WBC (Bld) 23.3 % Normal [facility] (02755) Comment: Performed By: #### CBCDIF ## ##[place] [address] [address], [place] [phone] MCH (RBC) [Entitic mass] 29.9 26.0-34.0 pG Normal 08-05 [facility] (37774) Comment: Performed By: #### CBCDIF ## ##[place] [address] [address], [place] [phone] MCHC (RBC) [Mass/Vol] 32.1 30.5-36.0 g/dL Normal 08-06-19 [facility] (36833) Comment: Performed By: #### CBCDIF ## ##[place] [address] [address], [place] [phone] MCV (RBC) [Entitic vol] 93.2 80.0-100.0 fL Normal 08-05 [facility] (02623) Comment: Performed By: #### CBCDIF ## ##[place] [address] [address], [place] [phone] Monocytes/100 WBC (Bld) 5.3 % Normal 2019 [facility] (34334) Comment: Performed By: #### CBCDIF ## ##[place] [address] [address], [place] [phone]- [phone] Neutrophils/100 WBC (Bld) 69.9 % Normal [facility] (64314) Comment: Performed By: #### CBCDIF ## ##[place] [address] [address], [place] [phone] NRBCs 0.0 0 /100 WBC Normal 08-06-2019 [facility] (44145) Comment: Performed By: #### CBCDIF ## ##[address] [phone]- [phone] Platelet mean volume 10.4 9.0-12.7 fL Normal 0 [facility] (d) [Entitic vol] [place] (08456) Comment: Performed By: #### CBCDIF ## ##[address] [phone]- [phone] Platelets (Bld) [#/Vol] 279 150-400 k/uL Normal 2019 [facility] (44290) Comment: Result Comment: No clot dete cted. Performed By: #### CBCDIF ## ##[address] [phone]- [phone] RBC (Bld) [#/Vol] 3.84 3.90-5.20 m/uL Low 08-06-2019 [facility] (04174) Comment: Performed By: #### CBCDIF ## ##[address] [place], [place] [phone]- [phone] WBC (Bld) [#/Vol] 10.08 3.70-11.00 k/uL Normal 08-06-2019 [facility] (06411) Comment: Performed By: #### CBCDIF ## ##[address] [phone]- [phone] 50g, 1hr gest. gscrn on 2019-08-06 Glucose [Mass/Vol] 97 74-134 mg/dL Normal 08-06-2019 [facility] (91981) Comment: Result Comment: [place] of Obstetricians and Gynecologists (Lucy/Jonas) guidelin es state a gestational diabetes mellitus positive screen is made, in women not previously diagnosed with overt diabetes, when the 1 hr plas ma glucose level is equal to or above 140 mg/dL. The [facility] Associate Partner and [facility] [place] recommends a 135 mg/dL cutoff. Performed By: #### GLTGST ## ##[address] [place], [place] [phone]- [phone] progress on 2019-06 PROGRESS HNO ID: [id number] Normal 06-14-2019 [facility] Author: Jose Kern ([id number]) Service: ? Author Type: Physician Type: Progress Notes Filed: 06/14/2019 9:47 AM Note Text: Please see ultrasound report for details of this visit. Jose Kern M.D. urine culture on 21-06-02 Bacteria identified Cx Culture Result - Normal 06-04-2019 [facility] Nom (U) 10,000 - <50,000 [facility] (16557) CFU/ml Normal urogenital gloria Comment: Performed By: #### URCUL ### [address] [phone]- [phone] type and scr,prenatl on 2019-06-04 ABO/RH(D) O POSITIVE Normal 06-04-2019 [facility] (37313) Comment: Performed By: #### TSPN #### [address] [phone]- [phone] syphilis ttl w/reflx on 2019-05-06 Syphilis Interp Cannot exclude recent Normal [facility] Treponemal infection if [place] (05728) specimen collected within 7 to 10 days after appearance of suspect lesions or 2 to 3 weeks after an exposure. Clinical correlation is required. Comment: Performed By: #### CBC, HAL GG, SYPHTX, HBSAG, HIV12C ####[place] [address] [address] [place], [place] [phone] Syphilis Screen Non Reactive Non Reactive Normal 05-06-20 [facility] (32582) Comment: Performed By: #### CBC, HAL GG, SYPHTX, HBSAG, HIV12C ####[place] [address] [address] [place], [place] [phone] rubella igg antibody on 2019-05-06 Rubella IgG Ab 1.83 Index Value Normal 05-06-2019 [facility] (72920) Comment: Result Comment: Index values are interpreted as follows: Negative specimens <0.90 Equivocol specimens 0.90 to 0.99 Positive specimens >0.99 The magnitude of the measure d result is not indicative of the amount of antibody present. Performed By: #### CBC, HAL GG, SYPHTX, HBSAG, HIV12C ####[facility] [place], [place] [phone] Rubella IgG Ab, Positive Negative Critically abnormal [facility] (39422) Comment: Result Comment: Sample is co nsidered positive for IgG antibodies to rubella virus. A positive result indicates previous exposure to Rubella virus or vaccination. Performed By: #### CBC, HAL GG, SYPHTX, HBSAG, HIV12C ####[facility] [place], [place] [phone] [id number] ag +hiv12 ab on 2019-05-06 HIV 12 Ag/Ab Non Reactive Non Reactive Normal 05-06-2019 [facility] (48149) Comment: Performed By: #### CBC, HAL GG, SYPHTX, HBSAG, HIV12C ####[facility] [place], [place] [phone] HIV-1/2 Antibody Normal 05-06-2019 [facility] (74653) Comment: Result Comment: Test Not Ind icated Negative No evidence of HIV-1 or HIV- 2 infection. Should recent infection be suspected, repeat testing may be considered 2-3 weeks after this draw. HIV Information: [place] Rev. C ode 3701.243(E): This information has [...] #### CBC, HAL GG, SYPHTX, HBSAG, HIV12C ####[facility] [place] [phone] hepatitis b surf. ag on 2019-05-06 Hepatitis B Surf. Ag Negative Negative Normal 9 [facility] (33968) Comment: Performed By: #### CBC, HAL GG, SYPHTX, HBSAG, HIV12C ####[address] [place] [phone] cbc on 2019-05-06 Absolute nRBC <0.01 <0.01 Normal 05-06-2019 [facility] (07891) Comment: Performed By: #### CBC, HAL GG, SYPHTX, HBSAG, HIV12C #### [facility] [address] [place] [address] Erythrocyte distribution 12.5 11.5-15.0 % Normal 05-06 [facility] width (RBC) [Ratio] [place] (79205) Comment: Performed By: #### CBC, HAL GG, SYPHTX, HBSAG, HIV12C #### [facility] [address] [place], [place] [address] Hematocrit (Bld) [Volume 40.9 36.0-46.0 % Normal 05-06 [facility] fraction] [place] (87401) Comment: Performed By: #### CBC, HAL GG, SYPHTX, HBSAG, HIV12C #### [facility] [address] [place], [place] [address] Hemoglobin (Bld) 13.5 11.5-15.5 g/dL Normal 05-06-2019 [facility] [Mass/Vol] [place] (40769) Comment: Performed By: #### CBC, HAL GG, SYPHTX, HBSAG, HIV12C #### [facility] [address] [place], [place] [address] MCH (RBC) [Entitic mass] 30.3 26.0-34.0 pG Normal 05-06 [facility] (83844) Comment: Performed By: #### CBC, HAL GG, SYPHTX, HBSAG, HIV12C #### [facility] [address] [place], [place] [address] MCHC (RBC) [Mass/Vol] 33.0 30.5-36.0 g/dL Normal 05-06-20 19 [facility] (24537) Comment: Performed By: #### CBC, HAL GG, SYPHTX, HBSAG, HIV12C #### [facility] [address] [place], [place] [address] MCV (RBC) [Entitic vol] 91.7 80.0-100.0 fL Normal 05-06 [facility] (36432) Comment: Performed By: #### CBC, HAL GG, SYPHTX, HBSAG, HIV12C #### [facility] [address] [place], [place] [address] Platelet mean volume 10.8 9.0-12.7 fL Normal 9 [facility] (Bld) [Entitic vol] [place] (20719) Comment: Performed By: #### CBC, HAL GG, SYPHTX, HBSAG, HIV12C #### [facility] [address] [place], [place] [address] Platelets (Bld) [#/Vol] 273 150-400 k/uL Normal 2018 [facility] (16263) Comment: Performed By: #### CBC, HAL GG, SYPHTX, HBSAG, HIV12C #### [facility] [address] [place], [place] [address] RBC (Bld) [#/Vol] 4.46 3.90-5.20 m/uL Normal 05-06-2019 [facility] (54385) Comment: Performed By: #### CBC, HAL GG, SYPHTX, HBSAG, HIV12C #### [facility] [address] [place], [place] [phone] WBC (Bld) [#/Vol] 7.77 3.70-11.00 k/uL Normal 05-06-2019 [facility] (95078) Comment: Performed By: #### CBC, HAL GG, SYPHTX, HBSAG, HIV12C #### [facility] [address] [place], [place] [address] progress on 2019-05 PROGRESS HNO ID: [id number] Normal 05-04-2019 [facility] Author: Jose Kern ([id number]) Service: ? Author Type: Physician Type: Progress Notes Filed: 05/04/2019 3:23 PM Note Text: Please see ultrasound report for details of this visit. Jose Kern M.D. cnov on 2019-05-04 CNOV Office Visit (WOOB) Normal 05-04-[address] [facility] RUSSELL LIZ ([id number]) 1990 [facility] Date Time Provider Department ([id number]) 05/04/19 2:00 PM JOSE KERN WOOB During your visit today, we recorded the following informati on about you: Weight 52.6 kg Jose Kern MD 05/04/2019 3:23 PM Signed Please see ultrasound report for details of this visit. Jose Kern M.D. Referring Provider: JERICA SUMMERS [[id number]] Allergies As of Date: 05/04/2019 Noted Allergy [...] Specimen received in pre servative Normal 03-24-2019 [facility] Nom (U) [place] (50986) Culture Result - <10,000 CFU/ml Normal urogenital gloria Comment: Performed By: #### URCUL ### # [place] [address] toxicology screen,ur on 2019-03-24 Amphetamines, Urine Negative Negative Normal 03-24-2019 [facility] (90933) Comment: Result Comment: Cutoff thres hold at 1000 ng/mL. Performed By: #### UTOX2 ### # [place] [address] [place] [address] Barbiturates, Urine Negative Negative Normal 03-24-2019 [facility] (61325) Comment: Result Comment: Cutoff thres hold at 200 ng/mL. Performed By: #### UTOX2 ### # [place] [address] [place] [address] Benzodiazepines, Ur Negative Negative Normal 03-24-2019 [facility] (12856) Comment: Result Comment: Cutoff thres hold at 200 ng/mL. Performed By: #### UTOX2 ### # [place] [address] [place] [address] Cannabinoids, Urine Negative Negative Normal 03-24-2019 [facility] (74108) Comment: Result Comment: Cutoff thres hold at 50 ng/mL. Performed By: #### UTOX2 ### # [facility] Laboratorie s [address] [place] [address] Cocaine, Urine Negative Negative Normal 03-24-2019 [facility] (81242) Comment: Result Comment: Cutoff thres hold at 300 ng/mL. Performed By: #### UTOX2 ### # [facility] [place] [address] Ethanol, Urine <11 <11 Normal 03-24-2019 [facility] (74349) Comment: Performed By: #### UTOX2 ### # [facility] [place] [phone] Opiates, Urine Negative Negative Normal 03-24-2019 [facility] (58280) Comment: Result Comment: Cutoff thres hold at 300 ng/mL. Performed By: #### UTOX2 ### # [facility] [place] [phone] Oxycodone, Urine Negative Negative Normal 03-24-2019 [facility] (63746) Comment: Result Comment: Cutoff thres hold at 100 ng/mL. Comment: Immunoassay screen only. Test Cell Technician ss reactivity with other substances can occur [...] on the same specimen through Client Services ([phone]) if contacted within 48 hours of initial testing. [1]Substance Abuse and Menta l Health Services Administration (2012). Clinical Drug Testing in Primary Care Technical Assistance Publication Series 32. [facility], [place], p.10. Performed By: #### UTOX2 ### # [facility] Laboratorie s [address] [place], [place] [address] Phencyclidine, Urine Negative Negative Normal 9 [facility] (26202) Comment: Result Comment: Cutoff thres hold at 25 ng/mL. Performed By: #### UTOX2 ### # [facility] Laboratorie s [address] [place], [place] [address] progress on 2019-03 PROGRESS HNO ID: [id number] Normal 03-24-2019 [facility] Author: Jerica Wood Mckinnon ([id number]) Service: ? Author Type: Physician Type: Progress [...] Multivitamin with Folic acid: Yes Occupation: home Yazdanism or heritage: No Would refuse blood transfusion if medically necessary: No BMI 20.63 kg/(m2) Patient BMI over 30? No Marital Status:Committed relationship Partner: Name: Florin Ayala Age: 29 Occupation: [employer] Gender: male History of STDs: None PAST [...] Outpatient Medications on File Prior to Visit: Qnygozmy-Zz-Avn-Fe-FA ( VITAMIN) tab Take 1 tablet by [...] Chlamydia Amplif Negative for Chlamydia Normal 03-24-2019 [facility] trachomatis by Per felix ([id number]) amplification. Comment: Performed By: #### GCCT #### [facility] Laboratorie s [address] [place] [address] GC Amplification Negative for Neisseria Normal 03-24-2019 [facility] gonorrhoeae by Per felix (72925) amplification. Comment: Performed By: #### GCCT #### [facility] Laboratorie [facility] [address] [place] [address] GC/Chlam Amp Source Cervix Normal 03-24-2019 [facility] (29772) Comment: Performed By: #### GCCT #### [facility] Laboratorie s [address] [place], [place] [address] cytology on 2019-03 CYTOLOGY Specimen originated from [facility] Normal 03-24-2019 [place] Specimen #: [id number] [facility] Submitting Physician: JERICA TROY MD [place]ck[place] SPECIMEN SUBMITTED ( [id number]) A: CERVICAL, SCREENING, FLUID FINAL DIAGNOSIS A. [...] STAINS A: CERVICAL, SCREENING, FLUID THIN PREP IT SPECIALIST Walt Stout M.D., Electrical Engineering Teacher Date of Report: 03/29/2019 Date of Procedure: 03/24/2019 Date of Receipt: 03/25/2019 Submitted by: JERICA TROY MD Location: [place] Diagnostic interpretation performed at [facility], [address] [place] [id number]. CLIA Number: [id number] The Pap Smear is a screening test for cervical cancer. False negative results occur with all screening tests, emphasizing the need for rescreening at recommended intervals, and clinical correlati on. progress on 2019-03 PROGRESS HNO ID: [id number] Normal 03-11-2019 [facility] Author: Vanessa Franco RN [place]ck[place] ([id number]) Service: ? Author Type: ? Type: Progress [...] on CNNURSE Nurse Visit (WOOB) Normal 03-11-2019 [place]ck[place] RUSSELL Hdez ([id number]) 1990 [facility] Date Time Provider Department ([id number]) 03/11/19 1:00 PM NURSE PNOB [facility] WSTR WOOB During your visit today, we recorded the following informati on about you: Last Period 02/01/19 Vanessa Franco RN 03/11/2019 1:32 PM Signed SEQUENTIAL SCREENINGS The [facility] offers sequential s creenings for women who [...] require an appointment with our ultraso und forest technician. This is not an ultrasound performed [...] abo ve symptoms, contact our office at [phone] and ask to speak with a nurse. After hours, you can call doctors registry at [phone] O R call [facility] at [phone] and ask to have the doctor software applications architect paged. If you consider this an emergency, [...] treatment is particularly effective in young patients-the [facility] Cord Blood Bank reports a 70 percent [...] to $95. The advantage of using a [facility] bank is that your sample is [...] issues. What do the experts say? The [place] [employer] encourages philanth [facility] blood banking in public joy, but only [...] taken that the baby needs at the [facility]. The nurse, school transportation director, or physician will then label the samples, [...] would arrange for safe transfer to another [facility] if the need arose. YOU MUST MAKE ARRANGEMENTS AHEAD OF TIME! Public cord-blood joy--DONATION: [employer] [phone] [facility]'s Placental Blood Program, [facility] Umbilical Cord Blood Bank, Private cord-blood joy--SAVING FOR YOUR OWN USE: [employer]Cell [employer], (I think this is the least expensive) [employer] [phone] [employer], ([phone]) [employer] [place] Cord Blood Bank, [phone]-CORD Cells, [phone] [place] Cryobank, Cord Blood Registry, (820) CORDBLOOD V[employer], An Internet search may provide [...] currently goes to counseling every week in [facility]. Pt has a history of genital [...] polyhydramnios [Z87.59] Order(s):PT ED OBSTETRICS AND GYNECOLOGY [2619260] Ord er #: [id number]: 1 PT ED OBSTETRICS AND GYNECOLOGY [] Order #: [id number] 2Qty: 1 PT ED OBSTETRICS AND GYNECOLOGY [] Order #: [id number] 4Qty: 1 PT ED OBSTETRICS AND GYNECOLOGY [] Order #: [id number] 5Qty: 1 PT ED OBSTETRICS AND GYNECOLOGY [] Order #: [id number] 6Qty: 1 Prescriptions as of 03/11/2019 Sig: [...] instructions from your clinician: SEQUENTIAL SCREENINGS The [facility] offers sequential screenings for women who are [...] require an appointment with our ultras ound forest technician. This is not an ultrasound performed [...] the above symptoms, contact our office at [phone] and ask to speak with a nurse. After hours, you can call doctors registry at [phone] O R call [facility] at [phone] and ask to have the doctor software applications architect paged. If you consider this an emergency, [...] some cancers and other illnesses. While the [facility] process of collecting cord blood is straightforward, [...] treatment is particularly effective in young patients-the [facility] Cord Blood Bank reports a 70 [...] baby's stem cells is cost. In a [facility] blood bank, the initial costs run [...] issues. What do the experts say? The [place] [employer] encourages philanthropic blood banking [...] baby needs at the moment. The nurse, school transportation director, or physician will then label the samples [...] AHEAD OF TIME! Public cord-blood joy--DONATION: [employer] [phone] [facility]'s Placental Blood Program, [facility] Umbilical Cord Blood Bank, Private cord-blood joy--SAVING FOR YOUR OWN USE: [employer], (I think this is the least expensive) [employer] [phone] [employer], ([phone]) [employer] [place] Cord Blood Bank, [phone] 700-CORD Cells, [phone] [place] Cryobank, Cord Blood Registry, (268) [facility] Viacord, An Internet search may provide you with additional listings. Disposition: Return in 6 days (on 03/17/2019) for New OB wit h Dr Wood. Follow-up and Disposition History Recorded Encounter Status:Closed by VANESSA FRANCO RN on 03/11/19 emergency report on 2017-09-18 EMERGENCY REPORT [facility] EMERGENCY Sylvia l 09-18-2017 [facility] ROOM REPORT NAME ACCOUNT SEX [facility] AGE ADMIT DISCHARGE PT MED. ([id number]) RECORD# NUMBER DATE DATE TYPE RAVI, [id number] F 26 08/26/17 08/26/17 3 RUSSELL Michaud [id number] ROOM: ER DATE OF : 1990 DICTATING [...] Price DO TD: 09/06/17 02:03 JOB #: [id number] Transcribed by: karen Electronically signed by: E-SIGN RICH PRICE DO 09/18/17 00:12 Page 2 of 2 RUSSELL LIZ Emergency Room Report protime on INR Coag RelTime (Bld) 1.0 0.9-1.3 {INR} Normal 018 [facility] (71227) Comment: Result Comment: Vitamin K An tagonist (VKA) Therapeutic Range: INR 2 to 3 (Target INR of 2.5)Note: For patients treated with VKA drugs, such as warfarin, the [place] [employer] of Chest Physicians 2012 Guideline [...] Chest 2012, 141:7S-47SNishimura RA, et a divina. [facility] 2017, 70: 252-289 Performed By: #### FIBCT, PT , PTT ####[facility] [address] [place] [address] 0 PT Sec 10.5 9.7-13.0 sec Normal 07-31-2017 [facility] (63765) Comment: Performed By: #### FIBCT, PT , PTT ####[facility] [address] [place] [address] 0 progress on 2017-07 PROGRESS HNO ID: [id number]: Marge grimes 07-31-2017 [facility] GuttmanService: General SurgeryAuthor ([id number]) Type: PhysicianType: Progress NotesFiled: 07/31/2017 6:32 AMNote [...] on Platelets 221 150-400 k/uL Normal 07-31-2017 [facility] (25627) Comment: Performed By: #### HCT, HGB, PLTCT ####[facility] [address] [place] [address] nursing prog on 01-02-01 NURSING HNO ID: [id number]: Shaina wagoner (Rn) DOMINICK Redmondervice: (none)Author Type: Registered NurseType: Normal 07-31-2017 [place] PROG Nursing Progress NoteFiled: 07/31/2017 4:01 PMNote Text: Nursing Progress NotePatient Name: [facility] Russell WrightosMRN: [id number] Location: ([address]) [facility]3V-0317/UG-7R-8885-2 Daily Note:sleepy but arousable-de nies any needs @ this time. Scantdrainage on lcro-bkr-swizabkuqw to order brkfst/ambulate in ajit ls/void qsprior discharge. IVFs maintained-discharge cchvuxb5910-Cwmrexug patient that she was discharged and needed to ambulate inhalls/order brkfst and void-I know-im not gett ing up now IVFsmaintained. Remains non-compliant with requests by gjzup6590-Hnzk ordered by nu rse-IVFs discontinued with site discontinued due toinfiltration-some edema at site without reddne ss. Medicated forpain-waiting on mother for discharge. Continue to refuse ambulation-nodrainge from rectum. Remains in bed-warm compress to IV ncau8253-Rdweef 100cc concentrated urine, bladder scanned for 850mls. Up inhall ambulating-refusing vetqnzbz-gevw-abbc monitor. Mother to fgwnt7211-Vnbgco 400m ls-no need to straight cath. Discharge instructionsreviewed with zelda lópez AND mother with adequate nonxsdmsw5393-Cey floor via w/c with transportThis note was completed by: Tayo Redmond RN NURSING HNO ID: [id number]: Grant rose (Rn) DOMINICK Malikervice: (none)Author Type: Registered Normal 07-31-2017 [place] PITTS NurseType: Nursing Progress NoteFiled: 07/31/2017 7:03 AMNote Text: Nursing Progress NotePatient Hospita l Name: Russell WrightosMRN: [id number] Location: ([address]) [place] [address]/[id number]-1962-2 Daily Note: 2300 assumed care of p [...] mass conc (Bld) 8.5 11.5-15.5 g/dL Low [facility] (29180) Comment: Performed By: #### HCT, HGB, PLTCT ####[facility] [address] [place] [address] 0 hematocrit on 07-31 Hematocrit (HCT) 26.3 36.0-46.0 % Low 07-31-2017 [facility] (83497) Comment: Performed By: #### HCT, HGB, PLTCT ####[place] [address] 0 fibrinogen on 07-31 Fibrinogen 190 200-400 mg/dL Low 07-31-2017 [facility] (71880) Comment: Performed By: #### FIBCT, PT , PTT ####[place] [address] 0 comp metabolic panel on 2017-07-31 Alanine aminotransferase (ALT) 6 7-38 U/L Low 07-31-2017 [facility] (00537) Comment: Performed By: #### CMP ####M [place] [address] Albumin 2.8 3.9-4.9 g/dL Low 07-31-2017 [facility] (61221) Comment: Performed By: #### CMP ####M [place] [address] Alkaline phosphatase (ALP) 31 32-117 U/L Low [facility] (35136) Comment: Performed By: #### CMP ####M [place] [address] Anion gap 9 9-18 mmol/L Normal 07-31-2017 [facility] (27917) Comment: Performed By: #### CMP ####M [facility] [address] [place] [address] Aspartate aminotransferase (AST) 9 13-35 U/L Low 07-31-2017 [facility] (34293) Comment: Performed By: #### CMP ####M [facility] [address] [place] [address] Bilirubin (total) 0.7 0.2-1.3 mg/dL Normal 07-31-2017 [facility] (28869) Comment: Performed By: #### CMP ####M [facility] [address] [place] [address] Calcium 7.2 8.5-10.2 mg/dL Low 07-31-2017 [facility] (85838) Comment: Performed By: #### CMP ####M [facility] U[address] [place] [address] Chloride 111 97-105 mmol/L High 07-31-2017 [facility] (87414) Comment: Performed By: #### CMP ####M [facility] V[address] [place] [address] CO2 23 22-30 mmol/L Normal 07-31-2017 [facility] (14343) Comment: Performed By: #### CMP ####M [facility] T[address] [place] [address] Creatinine 0.68 0.58-0.96 mg/dL Normal 07-31-2017 [facility] ospital (87288) Comment: Performed By: #### CMP ####M [facility] [address] [place] [address] eGFR (non-black) >60 mL/min/{1.73_m2} Normal 2017 [facility] (35289) Comment: Performed By: #### CMP ####M [facility] [address] [place] [address] Result Comment: eGFR (Estima joshua GFR) Units [...] mass conc 80 74-99 mg/dL Normal 07-31-2017 [facility] (98149) Comment: Result Comment: The [place] Diabetes Association (ADA) provides guidance for cutoff [...] Standards of Medical Care in Diabetes 2016, [place] Diab etes Association. Diabetes Care. 2016.39(Suppl 1). Performed By: #### CMP ####M [facility] [address] [place] [address] Potassium molar conc 4.1 3.7-5.1 mmol/L Normal 8 [facility] (22221) Comment: Performed By: #### CMP ####[place] [address] Protein 4.2 6.3-8.0 g/dL Low 07-31-2017 [facility] (61631) Comment: Performed By: #### CMP ####M [facility] U[address] [place], [place] 17[address] Sodium 143 136-144 mmol/L Normal 07-31-2017 [facility] (94760) Comment: Performed By: #### CMP ####M [facility] C[address] [place], [place] [address] Urea nitrogen 14 7-21 mg/dL Normal 07-31-2017 [facility] (14048) Comment: Performed By: #### CMP ####M [facility] Gnks[address]qrlc[address] [place], [place] [address] cbc and differential on 2017-07-31 Abs Baso <0.03 <0.11 Normal 07-31-2017 [facility] (15488) Comment: Performed By: #### CBCDIF ## ##[facility] [address] [place] [address] Abs [place] 1.16 <0.87 k/uL High 07-31-2017 [facility] (49736) Comment: Performed By: #### CBCDIF ## ##[facility] G[address] [place] [address] Abs Neut 10.10 1.45-7.50 k/uL High 07-31-2017 [facility] (53715) Comment: Performed By: #### CBCDIF ## ##[place] [address] Basophils/100 WBC Auto (Bld) 0.1 % Normal 0 07-31-2017 [facility] (97850) Comment: Performed By: #### CBCDIF ## ##[facility] [address] [place] [address] Eosinophils <0.03 <0.46 10*3/uL Normal 07-31-2017 [facility] (16392) Comment: Performed By: #### CBCDIF ## ##[facility] D[address]ab[address] [place] [address] Eosinophils/100 leukocytes 0.1 % Normal [facility] (18281) Comment: Performed By: #### CBCDIF ## ##[address] Erythrocyte distribution 12.5 11.5-15.0 % Normal 07-31 [facility] (48074) width Auto Ratio (RBC) Comment: Performed By: #### CBCDIF ## ##[facility] [address] [place], [place] [id number] Erythrocytes (RBC) 2.74 3.90-5.20 m/uL Low 07-31-2017 [facility] (54776) Comment: Performed By: #### CBCDIF ## ##[facility] Xcn[address] [place] [address] Hematocrit (HCT) 25.5 36.0-46.0 % Low 07-31-2017 [facility] (46736) Comment: Performed By: #### CBCDIF ## ##[facility] [address] [place], [place] [phone] Hemoglobin mass conc (Bld) 8.1 11.5-15.5 g/dL Low [facility] (81800) Comment: Performed By: #### CBCDIF ## ##[facility] Za[address] [place], [place] [phone] Lymphocytes 2.03 1.00-4.00 k/uL Normal 07-31-2017 [facility] (29577) Comment: Performed By: #### CBCDIF ## ##[facility] [address] [place] [address] Lymphocytes/100 leukocytes 15.3 % Normal [facility] (36904) Comment: Performed By: #### CBCDIF ## ##[facility] [address] [place], [place] [phone] MCH 29.6 26.0-34.0 pG Normal 07-31-2017 [place] [facility] (28527) Comment: Performed By: #### CBCDIF ## ##[facility] By[address] [place], [place] [address] MCHC mass conc (RBC) 31.8 30.5-36.0 g/dL Normal 8 [facility] (38035) Comment: Performed By: #### CBCDIF ## ##[facility] E[address] [place], [place] [address] MCV 93.1 80.0-100.0 fL Normal 07-31-2017 [place] [facility] (65535) Comment: Performed By: #### CBCDIF ## ##[facility] Sys[address] [place], [place] [phone] Monocytes/100 leukocytes 8.7 % Normal 07-31 [facility] (03998) Comment: Performed By: #### CBCDIF ## ##[facility] [address] [place] [address] Neutrophils/100 WBC Auto (Bld) 75.8 % Normal 07-31-2017 [facility] (33829) Comment: Performed By: #### CBCDIF ## ##[facility] [address] [place], [place] [address] Platelet mean volume (PMV) 10.6 9.0-12.7 fL Normal [facility] (59987) Comment: Performed By: #### CBCDIF ## ##[facility] A[address]ek[address]ql6120 [address]721[address] Platelets 216 150-400 k/uL Normal 07-31-2017 [place] [facility] (86566) Comment: Performed By: #### CBCDIF ## ##[facility] Luxwjbvnoy9358 [address]721[address] WBC (Leukocytes) 13.31 3.70-11.00 k/uL High 07-31-2017 [facility] (59642) Comment: Performed By: #### CBCDIF ## ##[facility] [address] [place] [address] case mgt inessence mock on 2017-07-31 CASE MGT HNO ID: [id number]: Lisa (Rn) Gurpreet al 07-31-2017 [facility] DOMINICK Lareservice: [facility] ManagementB[facility] Type: Registered NurseType: Care Mgt (45475) Initial AssessmentFiled: 07/31/2017 11:47 AMNote Text:CARE MANAGEMENT: ASSESSMENT AND DISCHARGE PLANSERVICE DATE: 07/31/2017SERVICE TIME: 11:39 AMPRIMARY CARE PHYSICIAN:Chao Garcia MD (confirmed with patient) OSBNNDDEB STATUS: InpatientNeeds Prior to Discharge: Ready for DischargeMEDICAL:Patient/Certified Diabetes Educator Stated Goals:To have reduction in symptomsHealth Insurance: [facility] MEDICAIDUnited Health CareHealth Issues Impacting [...] Admission: NoneHas the Patient Been in a Group Home Facility in the Past 30 days? NoSOCIAL:Living Arrangement: HomeLives With: MotherFinancial Resources: UnemployedPrimary Contact: Extended Emergency Contact InformationPrimary Emergency Contact: KatheHannahAddress: [address] [place], [place] [address] [place] [address] Csjbsw Tfsbtiqg: MotherSupportive: YesOther Important Patient Contacts: NoneCaregiver Assessment:Caregiver [...] - 0I feel financially burdened by my swt-ui-iuncqd expenses for myprescription medication: Disagree completely - [...] bedside, introduced self/role of TCC. Patientadmitted to [facility] s/p hemorrhoidectomy, patient received 1 unitPRBCs. Patient lives with her mother and her two children, she isindependent with ADLs and IADLs. No services anticipated at discharge.CM will remain available for discharge planning needs.SIGNATURE: Lisa Lares RN PATIENT NAME: Russell WrightosDATE: July 31, 2017 : 11:39 AM PAGER/CONTACT #: [phone] case managem on 201 01-02-01 CASE MANAGEM HNO ID: [id number]: Lisa Butler 07-31-2017 [facility] (Rn) DOMINICK Lareservice: Case ([id number]) ManagementAuthor Type: Registered NurseType: Care Mgt Progress [...] during this admission? NoHANDOFF COMMUNICATION:Primary Care Physician: PPKRXEKCLAQQHM ARRANGEMENTS:Car Family will transportADDITIONAL CONTACT RESOURCES: naNeeds Prior to Discharge: Ready for DischargeDischarge order written for today, patient discharged home with noservices. Patient agrees with discharge plan. Family will transport.SIGNATURE: Lisa Lares RN PATIENT NAME: Russell WrightosDATE: July 31, 2017 : 1:48 PM PAGER/CONTACT #: [phone] aptt on 2017-07-31 aPTT 26.0 23.0-32.4 sec Normal 07-31-2017 [facility] (18569) Comment: Result Comment: Unfractionat ed Heparin Therapeutic [...] APTT reagent in u se throughout the [facility]. Performed By: #### FIBCT, PT , PTT ####[facility] [address] [place] [address] xr chest 1v frontal port on 2017-07-30 XR CHEST 1V * * *Final Report* * *DATE OF EXAM: No rmal 07-30-2017 [place] FRONTAL PORT Jul 30 2017 8:43PM MDX 5376 - XR Hospital CHEST 1V FRONTAL PORT / [id number] REASON: Fluid overload * * * * Physician Interpretation * * * * EXAMINATION: CHEST RADIOGRAPH (PORTABLE SINGLE VIEW AP)Exam Date/Time: 07/30/2017 8:43 PMIndication: Fluid overloadMQ: XCP_4Comparison: NoneRESULT:See impression.IMPRESSION:Lines, tubes, and devices: None.Lungs and pleura: No edema, infiltrates, pulmonary nodules or pleural effusions.Cardiomediastinal silhouette: Within normal limitsOther:[employer]er [employer]: PSCShaylee Transcribe Date/Time: Jul 30 2017 8:47PDictated by : SHEREE MAHARAJ MDThis examination was interpreted and the report reviewed and electronically signed by: SHEREE MAHARAJ MD on Jul 30 2017 8:48PM [id number] type and screen on 2017-07-30 ABO/RH(D) O POSITIVE Normal 07-30-2017 [facility] ospital (15169) Comment: Performed By: #### TSCR #### [place] [id number] Antibody Screen NEG Normal 07-30-2017 [facility] (32212) Comment: Performed By: #### TSCR #### [facility] [address] [place], [place] [address] surgical pathology on 2017-07-30 [facility]: [id number] Physician: Normal 07-30-2017 [place] PATHOLOGY Keya BRYAN MD EDDIE Murcia ([id number]) DIAGNOSIS1. Right posterior, hemorrhoid, hemorrhoidectomy (A ) - Histologic featuresconsistent with hemo rrhoids.2. Left lateral, hemorrhoid, hemorrhoidectomy (B) - Histologic featuresconsistent with hemorrhoids.3. Righ t anterior, hemorrhoid, hemorrhoidectomy (C) - Histologic featuresconsis tent with hemorrhoids.KL/JDC/lh/[id number] Whitmore M.D.(Electronic Signature) SPE CI MEN SUBMITTEDA: RIGHT POSTERIOR HEMORRHO ID B: LEFT LATERAL HEMORRHOID C: RIGHT ANTERIOR HEMORRHOID CLINICAL DATAHEMORRHOIDECTOMY EXTERNAL SINGLE COLUMN GROUP, LMP: HCG NEG.EXAMINATION UND ER ANESTHESIA, HEMORRHOIDECTOMY GROSS DESCRIPTIONA. Received in formalin labeled right posterior hemorrhoid is a bolivar-pinkmucosal and skin covered appearing segme nt of tissue measuring 3.5 x 2.0 x1.2 cm. The specimen is sectioned. Certified Diabetes Educator sections are submitted informalin in one cassette.B. [...] in o necassette. Gross examination performed at [facility], [address], [place] [address]ZGD/shauna 07/30/2017Patient ID #: [id number] of Report: 08/01/2017Date o f Procedure: 07/30/2017Date of Receipt: Submitted by: MARGE SCHAFER MDLocation: 3 VDiagnostic interpretation performed at [facility], [address] [address]. Comment: Performed By: #### PATHS ### #[facility] [address] [place], [place] [phone] pt ed on 2017-07-30 PT ED HNO ID: [id number]: Africa Jewell) Dom arevalo 07-30-2017 [facility] DOMINICK Liaoervice: (none)Author Type: ([id number]) Registered NurseType: Patient EducationFiled: 07/30/2017 8:09 AMNote Text:PRE OP LEARNING ASSESSMENTPROCEDURE/SURGERY: SURGERY: HemorrhoidectomyREADINESS TO LEARNCOGNITIVE ABILITY: Alert and orientedMOTIVATION TO LEARN: InterestedFAMILY SUPPORT: High - Very involved in pt carePATIENT LEARNS BEST BY: Verbal InstructionFACTORS AFFECTING LEARNING: Other AnxietyPHYSICAL LIMITATIONS AFFECTING LEARNING: PainElectronically Signed By: Africa Liao RN [facility] progress on 2017-07 PROGRESS HNO ID: [id number]: Samantha murcia 07-30-2017 [facility] ChukwuaniService: Hospital ([id number]) MedicineAuthor Type: PhysicianType: Progress NotesFiled: 07/31/2017 5:45 [...] July 30, 2017 : 6:28 PM PAGER: [phone] operative no on 201 01-02-28 OPERATIVE HNO ID: [id number]: Marge grimes 07-30-2017 [facility] AarontmanService: General SurgeryAuthor Type: Hospital PhysicianType: Operative ReportFiled: 07/31/2017 ([id number]) 6:19 AMNote Text:[facility]- Operative ReportRUSSELL LIZ MDOB: 1990 AGE: 26 SEX: FMRN: [id number] ACCTNUM: [id number] SVC: GENS LOCATION: 50126DRLOJZBLM PHYSICIAN: MARGE GARCIAANDATE OF PROCEDURE: 07/30/2017SURGEON: Marge Schafer M.D.HOME CARE COMPANION: NONEANESTHESIA: General endotracheal.PREOPERATIVE DIAGNOSIS(ES): Symptomatic mixed hemorrhoids.POSTOPERATIVE DIAGNOSIS(ES): Symptomatic mixed hemorrhoids in all 3quadrants.NAME OF OPERATION: Examination under anesthesia and 3-quadranthemorrhoidectomy.INDICATIONS:ESTIMATED BLOOD LOSS: 75 mL.COMPLICATIONS: None.SPECIMENS: Right anterior, left lateral, and right posterior hemorrhoidal complex, all sent separately.DRAINS: None.URINE OUTPUT: No catheter.LOG ID NUMBER: [id number].START TIME: 10:29.END TIME: 10:52.ASA: 2.IV FLUIDS: 900 [...] was excised and sent separately. A 2-0 baspybneirjbu-uu-jtdnu suture was placed around the internal anal [...] to recovery in stable condition.Marge Schafer M.D.General SurgeryRG:[id number]: 07/30/2017 11:02:22T: 07/30/2017 21:48:07Job #: [id number] OPERATIVE HNO ID: [id number]: Marge grimes 07-30-2017 [facility]rerv[facility]: General SurgeryAuthor Type: Hospital PhysicianType: Operative ReportFiled: 07/31/2017 (01806) 6:19 AMNote Text:[facility]- Operative ReportRUSSELL LIZ MDOB: 1990 AGE: 26 SEX: FMRN: [id number] ACCTNUM: [id number] SVC: GENS LOCATION: 26608ZLTVWWNFW PHYSICIAN: MARGE GARCIAANDATE OF PROCEDURE: 07/30/2017SURGEON: Marge Schafer M.D.HOME CARE COMPANION: NONEANESTHESIA:PREOPERATIVE DIAGNOSIS(ES): Syncope and hypotension post hemorrhoidectomywith [...] again no active bleeding. A 3-0 chromic snqazf-om-cqkcb suture wasplaced around that site to close [...] in management of this patient.Marge Schafer M.D.General SurgeryRG:[id number]: 07/30/2017 14:51:23T: 07/31/2017 00:14:43Job #: [id number] nursing prog on 201 01-02-28 NURSING HNO ID: [id number]: Cass watkins (Rn) DOMINICK Pintoervice: NursingAuthor Type: Registered Normal 07-30-2017 [place] PROG NurseType: Nursing Progress NoteFiled: 07/30/2017 11:21 PMNote Text: Nursing Progress NotePatient Hospita l Name: Russell WrightosMRN: [id number] Location: ([address]) [place] [address]/[id number] Daily Note:1700- pt admitted from PACU, pt arrived in lethargic condition butresponds appropriately. Pt with low BP fluids running, HOSP paged forco-management. Pt remains NPO, Bed alarm on for safety.1730- Pt remains with low BP, Md paged again for co iziypcnlzr3231- Md notified of continued low BP, STAT CBC o rdered along with otherlabs, Check orders bolus administered, IV IRON ordered and one unit ofblood consent signed by Mom and Patient.1945- Bolus complete, IV Iron transfusing SEE MAR, spoke w ith Pt admittingsurgeon, Wants 1 unit of PRBC, and repeat labs in the AM, If pt becomesmore alert okay to advance diets to clear yxbajsb8515- 1 unit of PRBC started no reactions uqlod6423- PRBC In fusion complete, no reactions noted BP more stableThis note was completed by: Leanna Pinto RN NURSING HNO ID: [id number]: Yamilex Michaud (Rn) DOMINICK Sabaervice: (none)Author Type: Registered Normal 07-30-2017 [place] PROG NurseType: Nursing Progress NoteFiled: 07/30/2017 4:22 PMNote Text:1520 DR Schafer at bedside Hospital cancel order for CMP only ne ed STAT [id number] Dr Irvin and Dr Schafer made aware of CBC (42332) results, no neworders at thi s time, recheck in am as [id number] Dr Crespo aware of blood pressures, no new orders will continueto monitor NURSING HNO ID: [id number]: Cass joshi (Rn) Gama, RNService: (none)Author Type: Registered NurseType: Normal 07-30-2017 [facility] Nursing Progress NoteFiled: 07/30/2017 2:37 PMNote Text: 1305 Assisted pt to side of bed to sit Hospital before standing up. 1320 Inp rocess of standing pt up with 2 assist and pt lost consciousness (40126) forapproximately 5 minutes w hile lifting her back into bed.Cdfinlqapizauz164- 120ml of blood from rectum with a [...] 1400 VS remain stable , running in 82/14-35-18--100% ON [id number] 85-14-62-85/50--100% 3L O2 Sleeping easily aroused.1410 take n to OR. NURSING HNO ID: [id number]: Cass joshi (Rn) Gama, RNService: (none)Author Type: Registered NurseType: Normal 07-30-2017 [facility] Nursing Progress NoteFiled: 07/30/2017 2:36 PMNote Text:1305 Assisted pt to side of bed to sit Hospital before standing up. 1320 Inp rocess of standing pt up with 2 assist and pt lost consciousness (30825) forapproximately 5 minutes w hile lifting her back into bed.Nhvnmepcebeppx050- 120ml of blood from rectum with a [...] 1400 VS remain stable , running in 82/96-68-43--100% ON 5G0599 85-14-62-85/50--100% 3L O2 Sleeping easily aroused.1410 take n to OR. NURSING HNO ID: [id number]: Cass joshi (Rn) DOMINICK Malloyervice: (none)Author Type: Registered NurseType: Normal 07-30-2017 [facility] Nursing Progress NoteFiled: 07/30/2017 2:15 PMNote Text:1305 Assisted pt to side of bed to sit Hospital before standing up. 1320 Inp rocess of standing pt up with 2 assist and pt lost consciousness (01417) forapproximately 5 minutes w zohra lifting her back into bed.Ebftdvlilkoeqc658- 120ml of blood from rectum with a [...] 1400 VS remain stable , running in 82/83-66-22--100% ON 6Z1727 85-14-62-85/50--100% 3L O2 Sleeping easily aroused.1410 take n to OR. NURSING HNO ID: [id number] Normal 07-30-2017 [facility] Author: Pop (Rn) [facility] Service: Nursing (00 000) Author Type: Registered Nurse Type: Nursing Progress Note Filed: 07/30/2017 11:40 AM Note Text: RECTAL DRESSING D/I NO BLEEDING NOTED NURSING HNO ID: [id number]: Jenny olsen (Rn) DOMINICK Liaoervice: (none)Author Type: Registered NurseType: Normal 07-30-2017 [place] PRO Nursing Progress NoteFiled: 07/30/2017 8:09 AMNote Text: Nursing Progress NotePatient Name: [facility] Michaud [facility] HospitalosMRN: [id number] Location: [facility] (09715) Surgery 0[address] Dr. 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 Mira Askew PA-C hcg, quantitative bl on 2017-07-30 HCG, Quantitative Bl <0.1 <5.0 Normal 8 [facility] (94457) Comment: Result Comment: NEGATIVE Performed By: #### HCGQT ### #[facility] Lvvaffjiel6625 [phone] consult on CONSULT HNO ID: [id number]: Chidi Normal 07-30-2017 [facility] AkulaService: [facility] MedicineAuthor ([id number]) Type: PhysicianType: ConsultsFiled: 07/30/2017 3:33 PMNote Text:[facility] MEDICINEHISTORY AND PHYSICAL EXAMSERVICE DATE: 07/30/2017SERVICE TIME: 3:22 PMPrimary Care Physician: Chao Garcia MDNIGHT AND WEEKEND COVERAGE:Nights: Please contact pager [phone].WxehvujczbULG65 year old female with H/O symptomatic hemorrhoids [...] 30, 2017 : 3:22 PM PAGER/CONTACT #: [phone] cbc on 2017-07-30 Erythrocyte distribution 12.1 11.5-15.0 % Normal 07-30 [facility] (89678) width Auto Ratio (RBC) Comment: Performed By: #### CBC ####M [facility] [address] [place], [place] [phone] Erythrocytes (RBC) 2.71 3.90-5.20 m/uL Low 07-30-2017 [facility] (73789) Comment: Performed By: #### CBC ####M [facility] [address] [place], [place] [address] Hematocrit (HCT) 25.1 36.0-46.0 % Low 07-30-2017 [facility] (23584) Comment: Performed By: #### CBC ####M [facility] X[address] [place] [phone] Hemoglobin mass conc (Bld) 8.0 11.5-15.5 g/dL Low [facility] (81982) Comment: Performed By: #### CBC ####M [facility] F[address] [place], [place] [address] MCH 29.5 26.0-34.0 pG Normal 07-30-2017 [facility] (71753) Comment: Performed By: #### CBC ####M [facility] [address] [place], [place] [phone] MCHC mass conc (RBC) 31.9 30.5-36.0 g/dL Normal [address] [place] [address] (26069) Comment: Performed By: #### CBC ####M [facility] V[address] [place], [place] [phone] MCV 92.6 80.0-100.0 fL Normal 07-30-2017 [facility] (25005) Comment: Performed By: #### CBC ####M [facility] [address] [place], [place] [phone] Platelet mean volume (PMV) 10.1 9.0-12.7 fL Normal [facility] (94501) Comment: Performed By: #### CBC ####M [facility] M[address] [place], [place] [address] Platelets 250 150-400 k/uL Normal 07-30-2017 [facility] (88506) Comment: Performed By: #### CBC ####M [facility] [address] [place] [address] WBC (Leukocytes) 15.75 3.70-11.00 k/uL High 07-30-2017 [facility] (21305) Comment: Performed By: #### CBC ####M [facility] Bu[address]beq[address] [place], [place] [phone] cbc and differential on 2017-07-30 Abs Baso <0.03 <0.11 Normal 07-30-2017 [facility] (01723) Comment: Performed By: #### CBCDIF ## ##[facility] [address] [place] [address] Abs [place] 0.33 <0.87 k/uL Normal 07-30-2017 [facility] (11666) Comment: Performed By: #### CBCDIF ## ##[facility] Fnz[address] [place], [place] [phone] Abs Neut 13.64 1.45-7.50 k/uL High 07-30-2017 [facility] (23221) Comment: Performed By: #### CBCDIF ## ##[facility] Xraitj[address] [place], [place] [phone] Basophils/100 WBC Auto (Bld) 0.1 % Normal 0 07-30-2017 [facility] (07360) Comment: Performed By: #### CBCDIF ## ##[facility] [address] [place], [place] [phone] Eosinophils 0.04 <0.46 k/uL Normal 07-30-2017 [facility] (55031) Comment: Performed By: #### CBCDIF ## ##[facility] Jpgitfwufg[address] [place], [place] [address] Eosinophils/100 leukocytes 0.3 % Normal [facility] (37806) Comment: Performed By: #### CBCDIF ## ##[facility] [address] [place], [place] [phone] Erythrocyte distribution 12.2 11.5-15.0 % Normal 07-30 [facility] (76992) width Auto Ratio (RBC) Comment: Performed By: #### CBCDIF ## ##[place] [address] Erythrocytes (RBC) 2.64 3.90-5.20 m/uL Low 07-30-2017 [facility] (46950) Comment: Performed By: #### CBCDIF ## ##[facility] F[address] [place] [address] Hematocrit (HCT) 25.1 36.0-46.0 % Low 07-30-2017 [facility] (52021) Comment: Performed By: #### CBCDIF ## ##[place] [address] Hemoglobin mass conc (Bld) 7.9 11.5-15.5 g/dL Low [facility] (46771) Comment: Performed By: #### CBCDIF ## ##[place] [address] Lymphocytes 0.93 1.00-4.00 k/uL Low 07-30-2017 [facility] (90178) Comment: Performed By: #### CBCDIF ## ##[place] [address] Lymphocytes/100 leukocytes 6.2 % Normal [facility] (49626) Comment: Performed By: #### CBCDIF ## ##[facility] T[address] [place] [address] MCH 29.9 26.0-34.0 pG Normal 07-30-2017 [facility] (86174) Comment: Performed By: #### CBCDIF ## ##[facility] B[address] [place] [address] MCHC mass conc (RBC) 31.5 30.5-36.0 g/dL Normal 8 [facility] (14419) Comment: Performed By: #### CBCDIF ## ##[facility] O[address] [place] [address] MCV 95.1 80.0-100.0 fL Normal 07-30-2017 [place] [facility] (33814) Comment: Performed By: #### CBCDIF ## ##[facility] [address]01 [place] [phone] Monocytes/100 leukocytes 2.2 % Normal 07-30 [facility] (04552) Comment: Performed By: #### CBCDIF ## ##[facility] O[address]a55[address] [place] [phone] Neutrophils/100 WBC Auto (Bld) 91.2 % Normal 07-30-2017 [facility] (90528) Comment: Performed By: #### CBCDIF ## ##[facility] Z[address] [place] [phone] Platelet mean volume (PMV) 10.4 9.0-12.7 fL Normal [facility] (90143) Comment: Performed By: #### CBCDIF ## ##[facility] J[address]ms[address]33 [place] [phone] Platelets 243 150-400 k/uL Normal 07-30-2017 [facility] spital (79859) Comment: Performed By: #### CBCDIF ## ##[facility] [address] [place] [phone] WBC (Leukocytes) 14.95 3.70-11.00 k/uL High 07-30-2017 [facility] (68535) Comment: Performed By: #### CBCDIF ## ##[facility] [address] [place] [phone] brief op not on 201 01-02-28 BRIEF OP NOT HNO ID: [id number]: Marge arevalo 07-30-2017 [facility] GuttmanService: General (59477) SurgeryAuthor Type: PhysicianType: Brief Op NoteFiled: 07/30/2017 2:51 PMNote Text:BRIEF OPERATIVE NOTATION FOR SURGICAL PROCEDURE.Russell Liz 1990 [id number] femaleLOG ID: [id number]/Procedure Date: 07/30/2017Incision/Procedure Start Time: 2:26 PMIncision Close/Procedure End Time: 2:36 PMSurgeon(s)/Proceduralist(s) and Manager Enterprise Content Management(s):Surgeon(s) and Role: * Marge Schafer - PrimaryNo Additional StaffREFERRING PHYSICIAN:OutpatientDEPT: WSeth PROVIDER: P38 POS:[id number]: GeneralASA CLASS: 1 - healthyDIAGNOSIS: POST HEMORRHOIDECTOMY BLEEDPROCEDURE: Anoscopy, examination under anesthesia- 75062-236MBF: 1000 in OR - 4000 total for [...] note dictated in the dictation system. - [id number] Schafer MD BRIEF OP NOT HNO ID: [id number]: Marge arevalo 07-30-2017 [facility] (58607) SurgeryAuthor Type: PhysicianType: Brief Op NoteFiled: 07/30/2017 11:02 AMNote Text:BRIEF OPERATIVE NOTATION FOR SURGICAL PROCEDURE.Russell Liz 1990 [id number] femaleLOG ID: [id number]/Procedure Date: 07/30/2017Incision/Procedure Start Time: 10:29 AMIncision Close/Procedure End Time: 10:52 AMSurgeon(s)/Proceduralist(s) and Manager Enterprise Content Management(s):Surgeon(s) and Role: * Marge Schafer - PrimaryPhysician Manager Enterprise Content Management: Maria Guadalupe Cantu) WheelerREFERRING PHYSICIAN:OutpatientDEPT: WQ PROVIDER: P38 POS:[id number]: GeneralASA CLASS: 2 - mildDIAGNOSIS: symptomatic hemorrhoidsPROCEDURE: Examination Under Anesthesia, Hemorrhoidectomy - 90887-161IXQ: 900EBL: 75Specimens: RIght posterior, left lateral and [...] note dictated in the dictation system. - [id number] Schafer MD anes preop on 07-30 ANES PREOP HNO ID: [id number]: Vimal Devine count includes the [facility] 07-30-2017 BINTA Zavalaervice: [facility] AnesthesiologyAuthor Type: ([id number]) AnesthesiologistType: Anesthesia PreOpFiled: 07/30/2017 8:07 AMNote Text: [...] July 30, 2017 : 8:05 AM CSN: [id number] anes post on 07-30 ANES POST HNO ID: [id number]: Normal 07-04 [facility] Vimal Crespo, (11120) MDService: AnesthesiologyAuthor Type: AnesthesiologistType: Anesthesia PostOpFiled: 07/30/2017 [...] PM PAGER/CONTACT #: ANES POST HNO ID: [id number]: Normal 07-04 [facility] Vimal Crespo, (76000) MDService: AnesthesiologyAuthor Type: AnesthesiologistType: Anesthesia PostOpFiled: 07/30/2017 [...] on 201 01-01-26 NURSING PROG HNO ID: [id number]: Jennifer grimes 07-28-2017 [facility] (Rn) DOMINICK Hurleyervice: (25100) (none)Author Type: Registered NurseType: Nursing Progress NoteFiled: 07/28/2017 11:49 AMNote Text:PACC Nurse Progress NoteHistory AND Physical:Original HANDP Date: 07/11/17Labs Within Last 6 Months:N/AImaging Within Last 12 Months:N/ACardiac Testing:N/ALast Menstrual Period:LMP Date: unknownRisk Assessment:N/AAnesthesia Review:DOSNarrative:N/APre-op Considerations:N/AChart Check:Shay Loo 2017 11:43 AMPATIENT PREOPERATIVE INSTRUCTIONSNo ref. provider found has scheduled you for [facility]: [phone] -- [address] [place] [id number].Please read below carefully for your personalized instructions.Blood [...] surgery.- NO jewelry, body piercings, makeup, nail hong konger, hairpins or contactsare to be worn the day of surgery.If you develop symptoms such as a fever, cold, or flu, or have otherchanges to your health within TWO DAYS of scheduled surgery or the morningof surgery, please contact the surgery center above.Personal Belongings:- Leave ALL valuables and money at home or with family members.For Outpatient Procedures: - YOU MUST HAVE A RESPONSIBLE NOTEREADER TAKE YOU HOME. A FOOD PREP WORKER OR CABDRIVER CANNOT BE MADE A RESPONSIBLE NOTEREADER.- We recommend that a responsible person stays [...] lb (52.164 Hospital kg)Outpatient Medications as of (24300) 07/30/17:oxyCODONE-acetaminophen (PERCOCET) 5-325 mg tabletdibucaine (NUPERCAINAL) 1 [...] days for the following basenames: K,HCTProgress Notes ([facility]):Emma Sosa, EDUCATION SITE MANAGER, EDUCATION SITE MANAGER 07/22/2017 3:16 PM SignedOUTPATIENT VISIT DATE July 22, 2017OUTPATIENT VISIT TYPEESTABLISHEDPRIMARY CARE PHYSICIAN:Chao Garcia [facility] COMPLAINT:Patient presents with:Ear Pain: left x 3 [...] Wt 52.2 kg (115 lb) BMI 21.03 kg/s5Dgajeic appearance: tired/ill appearingHead: NormocephalicEyes: conjunctiva/corneas normalEars: R [...] CHOL, HDL, LDL, TGNo results found for: MCE1TCbhckpoe Fraction: No results foundIMPRESSION:Ms. Liz is a [...] benadryl 25 mg at bedtime.Progress Notes ([facility]):Refugio Franco Surg Coord 07/14/2017 8:57 AM [id number] Schafer patient given lightbowel prep Refugio Franco Surg Coord Encounters Date Type Reason Provider Location 07-30-2017 - Ambulatory [facility] 07-31-2017 MARGE SCHAFER ([id number]) ELVIA URIBE SHANNAN 08-26-2017 - Emergency RICHSTEPHANIA GUEVARA Juveronnie Kennedyhipolito ne 08-26-2017 department patient RICH GUEVARA [facility] visit RICH GUEVARA (20559) CHAO GARCIA UNKNOWN PROVIDER 03-07-2020 - Patient encounter Atopic dermatitis Emma (Stock Shipper) [facility] 03-07-2020 procedure Silva Comment: Atopic dermatitis and relate d condition 02-09-2020 - 02-09-2020 Refill (Cn) [facility]/Gynecology Comment: Refill Request 03-07-2020 - 03-07-[address] [facility] ([facility] with patient Procedures Procedure Name Date Provider Location Antibody screen 06-04-2019 [facility] (23168) Comment: Performed By: #### TSPN #### [facility] [address] [place], [place] [phone] Plan of Treatment Plan Description Date Location PAP TESTING PAP TESTING 03-24-2022 - [facility] 03-24-2022 (14789) INFLUENZA (#1) INFLUENZA (#1) 2020 - [facility] 02-01-2020 (94657) ANNUAL PCP TEAM CHRONIC ANNUAL PCP TEAM CHRONIC 11-04-2019 - [facility] DISEASE VISIT DISEASE VISIT 11-04-2019 (54766) DTAP,TDAP,TD (7 - Td) DTAP,TDAP,TD (7 - Td) 03-05-2016 - [facility] 03-05-2016 (39935) ONE PNEUMOVAX PRIOR TO ONE PNEUMOVAX PRIOR TO 11-25-2010 - [facility] AGE 66 AGE 66 11-25-2010 (72739) SPIROMETRY SPIROMETRY 11-25-2009 - [facility] 11-25-2009 (54099) Immunizations Vaccine Notes Status Date Location Chicken Pox Chicken Pox (disease) (completed) 09-30-1992 [facility] (disease) 09-30-1992 (82780) DTP diphtheria, tetanus (completed) 10-21-1996 - [facility] toxoids and pertussis 10-21-1996 ([id number] ) vaccine DTP diphtheria, tetanus (completed) 07-24-1994 - [facility] toxoids and pertussis 07-24-1994 ([id number] ) vaccine DTP diphtheria, tetanus (completed) 10-31-1993 - [facility] toxoids and pertussis 10-31-1993 (88631 ) vaccine DTP diphtheria, tetanus (completed) 05-05-1992 - [facility] toxoids and pertussis 05-05-1992 ([id number] ) vaccine DTP diphtheria, tetanus (completed) 02-28-1992 - [facility] toxoids and pertussis 02-28-1992 ([id number] ) vaccine Hib - 4 Dose haemophilus (completed) 07-03-1994 - [facility] Schedule influenzae type b 07-03-1994 ([id number]) vaccine, HbOC conjugate Hib - 4 Dose haemophilus (completed) 05-02-1992 - [facility] Schedule influenzae type b 05-02-1992 ([id number]) vaccine, HbOC conjugate Hib - 4 Dose haemophilus (completed) 02-01-1992 - [facility] Schedule influenzae type b 02-01-1992 ([id number]) vaccine, HbOC conjugate Hepatitis B hepatitis B vaccine, (completed) 08-25-1992 - [facility] Peds/Adol pediatric or 08-25-1992 (62284) pediatric/adolescent dosage Hepatitis B hepatitis B vaccine, (completed) 04-13-1992 - [facility] Peds/Adol pediatric or 04-13-1992 ([id number]) pediatric/adolescent dosage Hepatitis B hepatitis B vaccine, (completed) 1991 - [facility] Peds/Adol pediatric or 1991 (40163) pediatric/adolescent dosage MMR measles, mumps and (completed) 10-28-1996 - [facility] rubella virus vaccine 10-28-1996 ([id number] ) MMR measles, mumps and (completed) 11-29-1993 - [facility] rubella virus vaccine 11-29-1993 ([id number] ) Tdap (Age 7+) tetanus toxoid, ([facility]) [facility] 03-05-2006 ([id number]) toxoid, and acellular pertussis vaccine, adsorbed OPV trivalent poliovirus (completed) 10-28-1996 - [facility] vaccine, live, oral 10-28-1996 ([id number]) OPV trivalent poliovirus (completed) 11-01-1995 - [facility] vaccine, live, oral 11-01-1995 ([id number]) OPV trivalent poliovirus (completed) 07-03-1994 - [facility] vaccine, live, oral 07-03-1994 ([id number]) OPV trivalent poliovirus (completed) 05-02-1992 - [facility] vaccine, live, oral 05-02-1992 ([id number]) OPV trivalent poliovirus (completed) 02-28-1992 - [facility] vaccine, live, oral 02-28-1992 ([id number]) Payers Payer Name Policy Number Location [facility] [id number] [facility] OUTPAT ([id number]) The following information is from the original human readable contentNo Payer Records FoundNo Payer Records FoundNo Payer Records Found Social History Type Social History Date Location Description Tobacco smoking Current every day smoker 12-17-2019 - [facility] status NHIS 12-17-2019 ([id number]) History of tobacco Smoker 10-29-[address] [facility] alexandr use (85705) Tobacco use and Never used 12-17-2019 - [facility] exposure 12-17-2019 (55072) Alcohol intake Ex-drinker (finding) 12-17-2019 - [facility] linic 12-17-2019 (94789) Tobacco Comment 2 cigarettes [facility]-2018 [facility] 06-08-2018 (66511) Alcohol Comment Occasionally 03-10-2017 - [facility] 03-10-2017 (03033) Sex Assigned At Not on file [facility] (41576) Exposure to Not sure [facility] SARS-CoV-2 (event) (83816) The following information is from the original human readable contentNo Social History Records FoundNo Social History Records FoundNo Social History Records FoundNo Social History Records FoundNo Social History Records Found Summary Purpose Family History No Family History Records FoundNo Family History Records FoundNo Family History Records Found Advance Directives No Advanced Directives Records Found Documents on File Type Date Recorded Patient Certified Diabetes Educator Explanati on Advance Directive(s) 07/30/2017 7:46 AM Documents on File Type Date Recorded Patient Certified Diabetes Educator Explanati on Advance Directive(s) 07/30/2017 7:46 AM History of Past Illness Problem Noted Date Resolved Date Previous delivery affecting 03/11/2019 11/08/2019 Overview: 03/11/2019Pt had 2 previous C sections. She desires a repeat C section by Dr Wood. She desires a PPTL. Patient wi ll need to sign Title 19 form.TKRN Nausea and vomiting in 03/11/2019 020 Overview: [id number] is complaining of nause a and occasional [...] first trimester 02/13/2017 Overview: 03/19/16: done at [facility], + [facility], will do ANDRIY next visit. [...] rate of success us ing pre-labor factors: [email or web address] Predicted chance of vaginal after : 82.7% Jerica Wood MD 03/07/2016Pt had a previous C section in [place], [place]. She desires a repeat C section [...] Nausea and vomiting in 03/11/2019 020 Overview: [id number] is complaining of nause a and occasional [...] first trimester 02/13/2017 Overview: 03/19/16: done at [facility], [facility], will do ANDRIY next visit. [...] rate of success us ing pre-labor factors: [email or web address]/[email or web address].html Predicted chance of vaginal after : 82.7% Jerica Wood MD 03/07/2016Pt had a previous C section in [place], [place]. She desires a repeat C section [...] SosaCheyennei Required Referral Procedures CONSULT TO DERMATOLOGY ([facility]) [address] [place] [address] History of Present Illness Emma Sosa ([facility]) - [facility] This Team Access Model visit is a virtual encounter. It required patient- provider interaction for the medical decision making as documented below. Russell Liz is a 29 year old female seen for follow up of eczema. Treatments: Button Grader: Russell Liz is a 29 year old [...] on file for this visit. Emma Sosa APRN.EDUCATION SITE MANAGER documented in this encounter Assessments Diagnosis Atopic [...] BE BASED ON THE PRIMARY CLINICAL RECORDS. [facility] provides no warranty or guarantee of the accuracy or completeness of information in this document. UNRECOGNIZED CONTENT PROVIDED BELOW FOR UNRECOGNIZED SECTION INFORMATION SOURCE DATE CREATED AUTHOR AUTHOR'S ORGANIZATIO N 11/20/2017 [facility] DATE CREATED AUTHOR AUTHOR'S ORGANIZATIO N 11/21/2017 [facility] DATE CREATED AUTHOR AUTHOR'S ORGANIZATIO N 03/07/2020 [facility] UNRECOGNIZED CONTENT PROVIDED BELOW FOR UNRECOGNIZED SECTION Source Comments In the event this information is protected by the Federal Confidentiality of Alcohol and Drug Abuse Patient Records regulations: The Federal rules restrict any use of the information to criminally investigate or prosecute any alcohol or drug abuse patient.[facility] the event this information is protected by the Federal Confidentiality of Alcohol and Drug Abuse Patient Records regulations: The Federal rules restrict any use of the information to criminally investigate or prosecute any alcohol or drug abuse patient.[facility] UNRECOGNIZED CONTENT PROVIDED BELOW FOR UNRECOGNIZED SECTION Reason for Visit Reason Onset Date Comments Refill Request 02/09/2020 Reason Comments Follow Up rash UNRECOGNIZED CONTENT PROVIDED BELOW FOR UNRECOGNIZED SECTION Miscellaneous Notes Telephone Encounter - Esperanza Celaya RN - 02/10/2020 8:50 AM EDTPatient notified. [...] EDTLeft voicemail to let her know provider software applications architect would not refill. Previous note states she waants towait for RM response. Forwarded to . Esperanaz Celaya RN elephone Encounter - Jessica Ku) [...] out of the office. Would like provider software applications architect to review in her absence. If DOC not able to send in for her, she would like to wait for RM's response tomorrow. Karen Hawthorne RN documented in this encounter
== END 2019-11-03 09:45 | disposition home or self-care (01) | DRG 784 ==
PROVIDERS: Admitting Provider Obstetrics & Gynecology; Family Provider Internal Medicine; PCP Internal Medicine; Referring Provider Obstetrics & Gynecology; Visit Provider Obstetrics & Gynecology
PROC: 10D00Z1 Extraction of Products of Conception, Low, Open Approach (ICD-10-PCS; CPT 59514; principal; 2019-11-01 07:15)
DX: O34.211 Maternal care for low transverse scar from previous cesarean delivery (principal); O99.02 Anemia complicating childbirth; D64.9 Anemia, unspecified; O69.81X0 Labor and delivery complicated by cord around neck, without compression, not applicable or unspecified; O98.32 Other infections with a predominantly sexual mode of transmission complicating childbirth; A60.00 Herpesviral infection of urogenital system, unspecified; J45.909 Unspecified asthma, uncomplicated; O99.52 Diseases of the respiratory system complicating childbirth; O99.334 Smoking (tobacco) complicating childbirth; F17.210 Nicotine dependence, cigarettes, uncomplicated; Z3A.39 39 weeks gestation of pregnancy; Z37.0 Single live birth; Z30.2 Encounter for sterilization
CPT/HCPCS: 36415; 85025; 85027; 86850; 86900; 86901; 88302; 88305; 99218; J7120; A4216; G0378

== ENCOUNTER 2020-04-03 08:35 | Emergency (ER) | payer MEDICAID, SELFPAY ==
[2019-11-01 05:16] VITALS: BMI 26.6
[2020-04-03 08:36] VITALS: BP 116/75; PULSE 107; RESP 16; TEMP 36.6; O2SAT 100; BMI 25.7
--- NOTE | 2020-04-03 08:52 | ED.DCSUM_ITS ---
- ER Visit Summary Date of Service: 04/03/20 Chief Complaint: Fever History of Present Illness: The patient is a 29 F presents with fever. She states it started yesterday. T-max was 102.9 ?F. She states that the fevers controlled with Tylenol. She has had no cough. She does have body aches. She admits to decreased appetite but has had no loss of taste or smell. She has no known exposures to coronavirus. She denies any ear pain, sore throat. No nausea, vomiting or diarrhea. Physical Examination: Vital signs reviewed. HEENT exam unremarkable. Throat is nonerythematous. TMs are clear bilaterally. Heart is slightly tachycardic and regular rhythm without murmurs. Lungs are clear to auscultation. Abdomen is soft and nontender. Extremities reveal no edema. Skin exam normal. Neurologic exam normal. Test Results: COVID-19 send out test was performed Emergency Department Course and Treatment: The patient overall looks well. I feel she can be treated as an outpatient. She will continue nonsteroidals to help with fever control at home. She does not meet any inpatient criteria. She will have the test for the coronavirus which will be a send out. We will notify her of results. She was educated to quarantine at home for the next 10 to 14 days until her symptoms are clear. Treatment Plan: [] Disposition: Discharge Impression: Fever, concern for COVID-19 This note was generated with [employer] dictation software. It may contain incorrect words, spelling, and punctuation that were not noted in review of the chart prior to signing ED Disposition - Plan for ED Patient: Disposition: Home or Assisted Living Instructions: ED FUO Adult Referrals: Arabella Marin MD [Primary Care Provider] -
== END 2020-04-03 09:13 | disposition home or self-care (01) ==
LOC: ED 09:12
PROVIDERS: Emergency Provider Emergency Medicine; PCP Internal Medicine
DX: R50.9 Fever, unspecified (principal); F32.9 Major depressive disorder, single episode, unspecified; Z72.0 Tobacco use
CPT/HCPCS: 87635; 99282; U0003